=== PATIENT | female | born 1955 | race Caucasian/White ===

== ENCOUNTER 2020-01-04 19:08 | Emergency (ER) | payer OTHER, SELFPAY ==
[2020-01-04] VITALS (24 sets, daily range): BP systolic 113–143; BP diastolic 44–85; PULSE 97–120; RESP 18; TEMP 36.6; O2SAT 87–99
--- NOTE | 2020-01-04 19:14 | ED.GENADUL_ITS ---
Discharge Plan Disposition Patient Disposition: [facility] Condition: Serious Discharge Details Chief Complaint: RashLesion Clinical Impression: DKA (diabetic ketoacidoses), Cellulitis, Necrotizing fasciitis, Acute vulvovaginitis Primary Care Provider: Clemente Pike ED Provider: Analia iSlva Home Meds and New Rx's Prescriptions: No Action No Known Home Meds RF: 0 Medical Decision Making Patient is a pleasant, ill appearing, 89 year old female. She is presenting today with c/c of buttock pain. States that pain started approximately 2 days ago but she had not really noticed it. She states that her saw the area of swelling and advised evaluation. She also has noted wounds ot the right lower extremity, unclear when these began. She states that she has not seen a phsycian in several years. Believes that she was once diagnosed with prediabetes but not other diagnoses and is on no medications. She states that she has been fairly sedentary recently. She denies fevers/chills. No cough, SOB, CP, abdominal pain. States normal BM today without difficulty or pain. Denies any dysuria, hematuria. No vaginal discharge. Spoke with the patients , Choco. He advised that he has been trying ot get the patient to come to the hospital x 3 weeks. He states that this started off with swelling in her vagina. He states that they have not been able to have intercourse because it was swollen shut. He states that later the patient pulled off a toenail and had infection but she refused to come in. He noticed the abscess on her buttock x 4-5 days. States that now she is unable to control her bodily functions. He states taht he has found stool on the floor, on herself as well as incontinent of urine. He states patient has been at her baseline mentation. states that she has not been washing herself but states that it is becuase of the sore on her bottom and lack of ambition. On exam, patient does appear ill. She is tachycardic with a heart rate of 120. She appears dehydrated. Normal HEENT exam. Lungs are clear. Normal cardiac exam. Abdomen is soft and nontender, normal bowel sounds. Patient has swelling, erythema of the external genitals consistent with candidal infection. This is nontender to palpation. Patient also has a very large abscess to the right buttock. There was a small piece of tissue overriding opening. Once this was clear, approximately 100 cc of thick, purulent, foul-smelling brown discharge. There is no crepitus. The surrounding tissue edges are indurated. She since had minimal pain with palpation over this area. She also has open wounds to the right lower extremity. These do appear chronic with surrounding cellulitis. She also has an open wound under the right great toe. She has notable swelling to the right foot. Negative Homans sign, no pain in the posterior calf. She does have 2+ distal pulses and good capillary refill. He reports that the abscess in the buttock is been growing over the past week. States that today, when he noticed her being incontinent of stool and urine, is when he was able to bring her in for evaluation. Patient is very poorly kempt, very dirty, feces on her feet, abdomen and buttock. Imaging of the patient's buttock to evaluate for size of the abscess. Do not see any evidence at this point to suggest necrotizing fasciitis. Sounds are quite slow-growing wound patient and 's history. Patient does appear septic. We will begin aggressive hydration, antibiotics. Will give Zosyn and Flagyl. Labs reviewed. No contacted by the lab, concerning for lactate is 7.7. Patient's white count is 19. Platelet count of 800. ANC 16. Sodium 132. Potassium 3.5. Anion gap of 16.7. Creatinine 1.58 with a GFR of 33. We do not have comparison baseline values for maintenance labs. Glucose is 44. A1c 13%. Mag 1.6, will begin replenishment here. Patient's alk phos is elevated at 154. Troponin is less than 0.05. Urine concerning for 15 mg/dL ketones and 500 glucose. Many yeast were also seen which is consistent with exam. Carbone has been placed. Patient given 10 units subcu regular insulin. We will also give 20 of potassium IV, 1 g of magnesium. She is on her second liter of fluids we will continue to hydrate her. FINDINGS: Tubes, catheters and devices: A balloon bladder catheter is present. Stomach and bowel: Visualized small bowel and colon are unremarkable. Appendix: No evidence of appendicitis. Intraperitoneal space: Unremarkable. No free air. No significant fluid collection. Vasculature: The vasculature demonstrates diffuse mild atherosclerotic calcification. Lymph nodes: Unremarkable. No enlarged lymph nodes. Bladder: There is a small amount of intraluminal bladder gas consistent with instrumentation. Reproductive: Normal as visualized. Bones/joints: No acute abnormality or aggressive osseous lesion. Soft tissues: There is a 5.3 cm by 6.1 cm gas containing collection in the right gluteal cleft. There are several foci of soft tissue emphysema also appreciated in the right gluteal cleft as well. There is significant soft tissue fat stranding in the right gluteal cleft. IMPRESSION: Findings favor a 6.1 cm right gluteal cleft abscess with high concern for underlying necrotizing soft tissue bacterial infection. Differential would include recent debridement. This could be secondary to the large amount of fluid already removed, there is no crepitus to suggest necrotizing fasciitis. She is not hypotensive and this has been developing over the past week. Will discuss with radiologist regarding potential for necrotizing fasciitis. Spoke with the radiologist, he is unclear about the air. Not close to muscle fascia, feels that it would be into the cutaneous area of the gluteal cleft. He does advised that this exam is consistent with necrotizing fasciitis. Consulted with Dr. Fitzgerald with [facility] general surgery who accepts patient in transfer. He is requesting vancomycin clindamycin and Zosyn. Advise ER to ER transfer. Discussed this plan with the patient. Patient's been very hesitant to receive any care. She seems like she is in denial regarding her multitude of concerns today. However the help of her Choco is very good at getting her to agree in transfer. can be reached at [phone]. HPI General Mode of arrival: ambulatory . Date/Time Provider Initiated Documentation: 01/04/20 19:10 . Limitations to Documentation: no limitations . Information obtained by: patient, family (Spoke with multiple times over the phone [phone]) and RN notes reviewed . History of Present Illness 64 year old F presents to the emergency department with the chief complaint of Buttock pain and swelling, described as mild, with intensity rated at 3. Quality is described as aching, and is localized to the buttocks and right. Patient reports no radiation. Patient started experiencing this day(s) and it has been constant. No relieving factors improve symptom(s), No exacerbating factors reported . Patient notes denies chest pain, cough, diaphoresis, fever/chills, loss of appetite, nausea/vomiting, shortness of breath and weakness. Patient did receive the following treatments prior to a rrival, none Related Data Home Medications Medication Instructions Recorded Confirmed Unknown [No Known Home Meds] 01/04/20 01/04/20 Allergies Allergy/AdvReac Type Severity Reaction Status Date / Time No Known Allergies Allergy Unverified 01/04/20 19:33 Review of Systems Constitutional Constitutional: Reports as per HPI, Denies chills, Reports fatigue, Denies fever(s), Denies headache(s) and Denies poor appetite Eyes Eyes: Denies change in vision ENT Ears, Nose, Mouth, and Throat: Denies dizziness and Denies headache(s) Cardiovascular Cardiovascular: Reports as per HPI, Denies chest pain, Denies chest pain at rest, Denies chest pain with activity, Denies dyspnea and Denies dyspnea on exertion Respiratory Respiratory: Reports as per HPI, Denies chest congestion, Denies cough, Denies pain on inspiration, Denies pain with cough, Denies dyspnea, Denies dyspnea on exertion and Denies wheezing Gastrointestinal Gastrointestinal: Reports as per HPI, Denies abdominal pain, Denies melena, Denies hematochezia, Denies diarrhea, Denies loose stools, Denies nausea and Denies vomiting Genitourinary Genitourinary: Denies hematuria, Denies genital lesions, Reports dyspareunia, Reports sexual dysfunction ( reports swelling leading to sexual dysfunction, patient denies), Denies flank pain, Reports urinary incontinence, Reports urinary urgency, Denies vaginal discharge, Denies vaginal odor and Denies vaginal pruritus Musculoskeletal Musculoskeletal: Reports as per HPI and Reports back pain (buttock pain) Integumentary/Breasts Skin/Breast: Reports as per HPI, Reports skin pain, Reports skin swelling, Reports sores (RLE ) and Denies unusual bruising Neurologic Neurologic: Reports as per HPI, Denies dizziness and Denies headache(s) Endocrine Endocrine: Reports fatigue Allergic/Immunologic Allergic/Immunologic: Denies wheezing [facility] Social History Smoking/Tobacco Use Status: Never Alcohol Intake: never Drug use: Never Substance use type: does not use Do you feel safe at home: Yes Do you feel safe in your relationship?: Yes Additional Social history: Lives with Choco on spring Exam Const General: cooperative, uncomfortable (bending forward frequently, reports it relieves pain), no acute distress, well developed, No well groomed, anxious and ill appearing acutely Nutritional Appearance: well nourished and overweight Orientation: alert, awake and oriented x3 [facility] Head: normal to inspection Ears: hearing grossly normal bilaterally Mouth: mucous membranes dry Chest Chest: normal inspection of the chest, normal palpation of entire chest wall and no crepitus Resp Effort & Inspection: normal respiratory effort, able to speak in complete sentences and no respiratory distress Auscultation: clear to auscultation bilaterally, no rales, no rhonchi and no wheezes Cardio Rate: regular rate Rhythm: regular rhythm Heart Sounds: S1 normal and S2 normal GI Inspection: normal to inspection, no edema and non-distended Palpation: soft, no hepatosplenomegaly, not firm, no guarding, not rigid and nontender Auscultation: normal bowel sounds Back/Spine/Pelvis Back: no CVA tenderness Thoracic/Lumbar Spine: thoracic and lumbar spine normal to inspection Back/spine/pelvis image: 1. Patient is a large firm, erythematous area. Centrally, this is fluctuant. From the superior medial aspect there was a 4 cm piece of moist tissue hanging f rom the wound. This was pulled and at that time, a large amount of foul- smelling discharge was expressed from the wound. Approximately 100 cc came out. This was sent for culture. Surrounding tissue is indurated. Patient is fairly nontender. No crepitus. Skin General skin exam: erythema (Vulvovaginitis), excoriation (Under bilateral breasts), fluctuance and induration (Around abscess) Wounds: wounds noted (Multiple chronic appearing wounds with surrounding erythema, no fluctuance ) Neuro General: patient alert, patient awake and patient oriented x3 Cognition: normal cognition Speech: speech normal Gait: antalgic Extrem General: normal to inspection, capillary refill normal, no calf tenderness and abnormal gait (Antalgic) Right lower extremity: abnormal to inspection (Swelling to the right foot, wound under the right great toe) Psych Appearance: grossly normal and well kempt Mental Status: mental status grossly normal Speech and Movement: speech and movement normal
--- NOTE | 2020-01-04 19:42 | NUR.NOTE ---
Nursing Note: Patient reports that she has not showered for approximately 3 days now I was being lazy. Reports spouse helped her wash today and noticed wounds on leg and buttocks and hence brought patient to ER. Patient reports sensation to right buttock, but minimal response for pain from patient with palpation to sore.
[2020-01-04 19:46] LABS: Lactate 7.7 mmol/L (0.6-1.4)
[2020-01-04 19:49] LABS: Abs Immature Grans 0.06 k/cumm (0.0-0.09); Absolute Lymphocyte Count 1.99 k/cumm (1.2-3.4); Absolute Monocyte Count 0.84 k/cumm (0.11-0.7); Absolute Neutrophil Count 16.09 k/cumm (1.2-6.7); Basophils % 0.2; Eosinophils % 0.5; HCT 36.5 % (36.0-46.0); HGB 11.8 g/dL (12.0-15.5); Immature Grans % 0.3 %; Lymphocytes % 10.4; Mean Corp. HGB Concentration 32.3 g/dL (32.0-36.0); Mean Corpuscular Hemoglobin 26.1 pg (27.0-33.0); Mean Corpuscular Volume 80.8 fL (80-95); Mean Platelet Volume 10.5 fL (8.0-11.0); Monocytes % 4.4; Neutrophils % 84.2; RBC 4.52 m/cumm (4.00-5.20); RBC Distribution Width 12.8 % (11.7-14.6); White Blood Cell Count 19.11 k/cumm (4.4-10.8)
--- NOTE | 2020-01-04 19:49 | NUR.NOTE ---
Nursing Note: Possible skin tag removed from right buttock which then allowed purulent, blood, pus looking fluid to flow out from hole in buttock. Very odiferous. Wound culture obtained. Hyun POMPA notified.
[2020-01-04 19:58] LABS: ALT 13 U/L (14-59); AST 16 U/L (15-37); Albumin 2.5 g/dL (3.4-5.0); Alkaline Phosphatase 154 U/L (46-116); Anion Gap 16.7 mmol/L (3-11); BUN 11 mg/dL (7-18); Bilirubin, Total 0.4 mg/dL (0.2-1.0); CO2 23.3 mmol/L (21.0-32.0); CREATININE 1.58 mg/dL (0.55-1.02); Calcium 9.3 mg/dL (8.5-10.1); Chloride 92 mmol/L (98-107); Estimated GFR 33.14 (mL/min/1.73m2); Glucose 484 mg/dL (74-106); Magnesium 1.6 mg/dL (1.8-2.4); Potassium 3.5 mmol/L (3.5-5.1); Sodium 132 mmol/L (136-145); Total Protein 8.7 g/dL (6.4-8.2)
[2020-01-04] MEDS: Normal Saline 1,000 ML 1000 ML IV ×2 (19:58→21:41)
[2020-01-04 20:00] LABS: Absolute Basophil Count 0.04 k/cumm (0.0-0.2)
[2020-01-04 20:07] LABS: Platelet Count 800 x1000/uL (130-400); Troponin I < 0.05 ng/mL (<0.06)
[2020-01-04 20:08] LABS: Diff Comment PLT Morph Reviewed; RBC Morphology Normal
[2020-01-04] MEDS: PIPERACILLIN/TAZO 3.375 GM in Normal Saline 50 ML IVPB (20:24)
[2020-01-04 20:42] LABS: Hemoglobin A1C 13.3 % (3.8-5.6)
--- NOTE | 2020-01-04 20:55 | NUR.NOTE ---
Nursing Note: Patient's aurora area cleansed with barrier wipes with assistance from Augusta SUAZO prior to inserting sanchez catheter. Swollen, red, excoriated labia and surrounding skin noted. Also excoriated skin under both breasts which were cleansed with the barrier wipes.
[2020-01-04 21:02] LABS: Bilirubin Negative (Negative); Blood Trace-intact (Negative); Clarity Cloudy (Clear); Glucose 500 mg/dL (Negative); Ketones 15 mg/dL (Negative); Leukocyte Esterase Negative (Negative); Nitrite Negative (Negative); Urobilinogen 0.2 EU/dL (Up TO 0.2); pH 5.5 (5-8)
[2020-01-04 21:15] LABS: Epithelial Cells Rare HPF (Negative)
[2020-01-04 21:16] LABS: Bacteria Many HPF (Negative); C & S Indicated? Yes; Casts Negative LPF (Negative); Crystals Negative HPF (Negative); Mucus Negative (Negative)
[2020-01-04] MEDS: Insulin REGULAR-Human 100 UNITS/ML UNIT 10 UNITS SC (21:23)
--- NOTE | 2020-01-04 21:35 | DI.CT_ITS ---
EXAM: CT PELVIC WO CLINICAL HISTORY: large abscess right buttock. TECHNIQUE: Imaging Protocol: Axial computed tomography images with coronal and sagittal reformatted images were created and reviewed. CONTRAST MATERIAL: Oral: yes / no COMPARISON: No exams were available for comparison FINDINGS: There is soft tissue swelling and air with in the fat of the inferomedial right gluteal cleft. It me asures approximately 5 x 6 cm. There is no apparent extension to involve musculature. No intra-abdo ryan abscesses are seen. The appendix appears normal. There is no bowel dilatation. A catheter is noted within the bladder. The uterus appears enlarged and shows fibroids. IMPRESSION: Right gluteal cleft abscess. RADIATION DOSE DELIVERED: Total DLP DATA REPOSITORY: All CT scans at this facility are submitted to the National Radiology Data Registry (NRDR) Dose Index Registry (DIR) with the [employer] ([employer]). RADIATION OPTIMIZATION: All CT scans at this facility use at least one of these dose optimization te chniques: automated exposure control; mA and/or kV adjustment per patient size (includes targeted exa ms where dose is matched to clinical indication); or iterative reconstruction.
[2020-01-04] MEDS: metroNIDAZOLE 500 MG/100 ML BAG 100 MG IVPB (21:42)
[2020-01-04] MEDS: MAGNESIUM SULFATE 1 GM/100 ML BAG IVPB (21:44)
--- NOTE | 2020-01-04 21:55 | DI.VRAD_ITS ---
Addendum created by Jones Hernandez MD on 01/04/2020 10:05:05 PM EDT Findings were discussed with BHUPENDRA OLMSTEAD at 01/04/2020 10:05 PM EDT. Initial report created on 01/04/2020 9:55:08 PM EDT PROCEDURE INFORMATION: Exam: CT Pelvis Without Contrast Exam date and time: 01/04/2020 9:29 PM Age: 64 years old Clinical indication: Perianal pain; Patient HX: Large abscess RT buttock - one week TECHNIQUE: Imaging protocol: Computed tomography images of the pelvis without contrast. Radiation optimization: All CT scans at this facility use at least one of these dose optimization techniques: automated exposure control; mA and/or kV adjustment per patient size (includes targeted exams where dose is matched to clinical indication); or iterative reconstruction. COMPARISON: No relevant prior studies available. FINDINGS: Tubes, catheters and devices: A balloon bladder catheter is present. Stomach and bowel: Visualized small bowel and colon are unremarkable. Appendix: No evidence of appendicitis. Intraperitoneal space: Unremarkable. No free air. No significant fluid collection. Vasculature: The vasculature demonstrates diffuse mild atherosclerotic calcification. Lymph nodes: Unremarkable. No enlarged lymph nodes. Bladder: There is a small amount of intraluminal bladder gas consistent with instrumentation. Reproductive: Normal as visualized. Bones/joints: No acute abnormality or aggressive osseous lesion. Soft tissues: There is a 5.3 cm by 6.1 cm gas containing collection in the right gluteal cleft. There are several foci of soft tissue emphysema also appreciated in the right gluteal cleft as well. There is significant soft tissue fat stranding in the right gluteal cleft. IMPRESSION: Findings favor a 6.1 cm right gluteal cleft abscess with high concern for underlying necrotizing soft tissue bacterial infection. Differential would include recent debridement. Dictated and Authenticated by: Jones Hernandez MD. Ordering:PAUL Helms MD
[2020-01-04] MEDS: Lactated Ringers 1,000 ML 250 ML IV (22:46)
[2020-01-04] MEDS: POTASSIUM CHLORIDE 20 MEQ/100 ML BAG 50 MEQ IVPB (22:48)
[2020-01-04] MEDS: CLINDAMYCIN 900 MG/50 ML BAG 50 MG IVPB (22:48)
[2020-01-04] MEDS: VANCOMYCIN 1,000 MG in Normal Saline 250 ML 166.6666 MG IVPB (22:48)
[2020-01-05 01:21] LABS: TSH (W/Ref FT4) 2.36 uIU/mL (0.36-3.74)
--- NOTE | 2020-01-07 08:15 | NUR.NOTE ---
Pt TX'd to [facility] urine culture report faxed to [facility] [phone] Note:
--- NOTE | 2020-01-09 08:21 | NUR.NOTE ---
Nursing Note: Faxed to [facility] the wound culture result. Juana Middleton
== END 2020-01-04 23:30 | disposition short-term general hospital (02) ==
PROVIDERS: Emergency Provider Physician Assistant; PCP Internal Medicine
DX: M72.6 Necrotizing fasciitis (principal); E11.10 Type 2 diabetes mellitus with ketoacidosis without coma; A41.9 Sepsis, unspecified organism; B37.3 Candidiasis of vulva and vagina; L02.31 Cutaneous abscess of buttock; L03.115 Cellulitis of right lower limb; E86.0 Dehydration; E83.42 Hypomagnesemia; E11.65 Type 2 diabetes mellitus with hyperglycemia; R32 Unspecified urinary incontinence; R15.9 Full incontinence of feces; S81.801A Unspecified open wound, right lower leg, initial encounter; S91.301A Unspecified open wound, right foot, initial encounter; X58.XXXA Exposure to other specified factors, initial encounter
CPT/HCPCS: 36415; 36416; 51702; 80053; 82962; 87040; 87077; 96361; 96365; 96367; 96368; 96372; 96375; 99285; 72192; 81003; 81015; 83036; 83605; 83735; 84443; 84484; 85025; 87070; 87086; 87186; 87205; J2543; J3475; J3480

== ENCOUNTER 2020-01-30 02:55 | Outpatient (CLI) | payer OTHER, SELFPAY ==
[2020-01-30 08:09] LABS: Abs Immature Grans 0.02 10^3/uL (0.0-0.06); Absolute Basophil Count 0.07 10^3/uL (0.0-0.2); Absolute Eosinophil Count 0.37 10^3/uL (0.0-0.7); Absolute Lymphocyte Count 2.25 10^3/uL (1.2-3.4); Absolute Monocyte Count 0.33 10^3/uL (0.1-0.8); Absolute Neutrophil Count 4.29 10^3/uL (1.2-6.7); HCT 31.4 % (36.0-46.0); HGB 9.8 g/dL (11.2-15.7); Immature Grans % 0.3; Lymphocytes % 30.7; MCH 26.1 pg (27.0-33.0); MCHC 31.2 % (32.0-36.0); MCV 83.7 fL (80-95); MPV 10.5 fL (8.0-11.0); Monocytes % 4.5; Neutrophils % 58.5; Nucleated RBC 0 %; Platelet Count 358 10^3/uL (130-400); RBC 3.75 10^6/uL (3.93-5.22); RDW-SD 48.2 fL; WBC 7.33 10^3/uL (4.4-10.8)
[2020-01-30 09:08] LABS: ALT 21 U/L (14-59); AST 13 U/L (15-37); Alkaline Phosphatase 142 U/L (46-116); Anion Gap 12.8 mmol/L (3-11); BUN 26 mg/dL (7-18); Bilirubin, Total 0.3 mg/dL (0.2-1.0); CO2 26.2 mmol/L (21.0-32.0); CREATININE 3.29 mg/dL (0.55-1.02); Calcium 9.5 mg/dL (8.5-10.1); Calculated LDL 76 mg/dL (<100); Chloride 104 mmol/L (98-107); Cholesterol 166 mg/dL (<200); Estimated GFR 14.21 (mL/min/1.73m2); Glucose 145 mg/dL (74-106); HDL Cholesterol 33 mg/dL (40-60); Potassium 4.4 mmol/L (3.5-5.1); Sodium 143 mmol/L (136-145); Total Protein 7.5 g/dL (6.4-8.2); Triglyceride 287 mg/dL (<150)
== END 2020-01-30 03:15 ==
PROVIDERS: PCP Student in an Organized Health Care Education/Training Program; Visit Provider Student in an Organized Health Care Education/Training Program
DX: Z13.220 Encounter for screening for lipoid disorders (principal); I10 Essential (primary) hypertension; N17.9 Acute kidney failure, unspecified
CPT/HCPCS: 36415; 80053; 80061; 85025

== ENCOUNTER 2020-02-01 21:17 | Outpatient (REF) | payer OTHER, SELFPAY ==
[2020-02-01 23:54] LABS: COMMENT (LAB VIEW ONLY) 60.44 mg/dL
[2020-02-02 00:06] LABS: Microalb ug/mg Crea 133.7 ug/mg Cr
== END 2020-02-01 21:37 ==
LOC: NCHCN 21:17
PROVIDERS: PCP Student in an Organized Health Care Education/Training Program; Visit Provider Student in an Organized Health Care Education/Training Program
DX: E11.9 Type 2 diabetes mellitus without complications (principal)
CPT/HCPCS: 82043; 82570

== ENCOUNTER 2020-04-18 02:49 | Outpatient (CLI) | payer OTHER, SELFPAY ==
[2020-04-18 14:35] LABS: Anion Gap 10.6 mmol/L (3-11); BUN 43 mg/dL (7-18); CO2 23.4 mmol/L (21.0-32.0); CREATININE 1.79 mg/dL (0.55-1.02); Calcium 9.3 mg/dL (8.5-10.1); Chloride 109 mmol/L (98-107); Estimated GFR 28.69 (mL/min/1.73m2); Glucose 140 mg/dL (74-106); Magnesium 1.9 mg/dL (1.8-2.4); Potassium 5.4 mmol/L (3.5-5.1); Sodium 143 mmol/L (136-145)
== END 2020-04-18 03:09 ==
PROVIDERS: PCP Student in an Organized Health Care Education/Training Program; Visit Provider Student in an Organized Health Care Education/Training Program
DX: I10 Essential (primary) hypertension (principal); E87.5 Hyperkalemia; N18.9 Chronic kidney disease, unspecified
CPT/HCPCS: 36415; 80048; 83735

== ENCOUNTER 2020-04-29 09:04 | Inpatient (IN) | payer OTHER, SELFPAY ==
[2020-04-29] VITALS (8 sets, daily range): BP systolic 112–154; BP diastolic 54–73; PULSE 83–93; RESP 16–18; TEMP 36.5–37.2; O2SAT 95–98
--- NOTE | 2020-04-29 09:30 | DI.RAD_ITS ---
EXAM: XR HIP LT COMPLETE AP PELVIS CLINICAL HISTORY: fall/pain. TECHNIQUE: 2D digital imaging was performed. COMPARISON: No exams were available for comparison FINDINGS: BONES: There is a subcapital fracture of the left femur. There is impaction and proximal migration o f the distal fracture. No bony destructive lesion is seen. JOINTS: No dislocation present. Degenerative changes are seen in the hips, lower lumbar spine and sac roiliac joints. SOFT TISSUE: Atherosclerosis. IMPRESSION: Impacted subcapital fracture of the left femoral neck. DATA REPOSITORY: RADIATION DOSE DELIVERED:
--- NOTE | 2020-04-29 09:54 | W.ED.GENAD ---
Discharge Plan Disposition Patient Disposition: [facility] INPATIENT Condition: Stable Discharge Details Clinical Impression: Fracture of hip, left, closed Primary Care Provider: Korina Ibanez ED Provider: Calixto Roy Home Meds and New Rx's Prescriptions: No Action (DME) pen needle, diabetic [BD Ultra-Fine Mini Pen Needle] 31 gauge x 3/16 needle See Rx Instructions .ROUTE .MEDSUPPLY Qty: 30 RF: 0 B complex-vitamin C-folic acid 1 mg tablet 1 tab PO DAILY RF: 0 (DME) Mepilex Border 4 X 4 bandage See Rx Instructions .ROUTE .MEDSUPPLY Qty: 1 RF: 0 (DME) blood sugar diagnostic Strip See Rx Instructions .ROUTE .MEDSUPPLY Qty: 100 RF: 3 Lantus Solostar U-100 Insulin 100 unit/mL (3 mL) insulin pen 20 unit SC DAILY RF: 0 Medical Decision Making 64-year-old female with history of CKD, diabetes, hypertension, presents complaining of left hip pain status post fall earlier this morning between 1 and 2 AM. She reports that she got up out of bed to use the restroom and her left leg gave out on her. She was helped up by her and denies any other injury or pain except for the left hip. She appears to be in mild distress, leg is slightly shortened and rotated. Will obtain IV access, give 4 mg IV morphine, obtain routine laboratory values obtain x-ray of left hip and pelvis. Laboratory values reveal a white blood count of 15.34. This could be stress related. She denies any fever, cough, dysuria. No obvious signs of infection. Hemoglobin 12.2 hematocrit 36.8 platelet count 412. Potassium 5.1, creatinine 1.92 with a GFR of 26.46. This appears to be slightly worse than her baseline, she is receiving 1 L IV fluid. Glucose 174. Urinalysis pending. Patient did report moderate pain relief with 4 mg IV morphine. X-ray of the left hip and pelvis reveals an impacted subcapital fracture of the left femoral neck. I received a call from radiology requesting that we add on a left femur x-ray as well because the orthopedic surgeon on-call prefers this view. X-ray of the left femur is unremarkable per radiology. I did speak with the patient and her regarding findings. I placed a call to orthopedic surgery on-call for consultation and admission. Patient last ate yesterday, she did not have breakfast. Dr. Neff down to the ER to evaluate the patient himself. He agrees that the patient needs to be admitted and will require surgery. He is unsure whether he will get the surgery today or tomorrow. For the meantime he asked the patient remain n.p.o., we add on an A1c, and discuss admission with our hospitalist team. I then discussed the case with Dr. Muñoz, she is happy to admit the patient and will write holding orders. She does request that we order a chest x-ray and EKG for preoperative screening. I also added on a Covid swab as the patient is being admitted. Medical Records Medical records reviewed: Yes I reviewed the patient's medical records. Lab Data Lab results reviewed: Yes I reviewed the patient's lab results. Lab results narrative: Laboratory Tests Range/Units 04/29/20 04/29/20 09:45 09:45 WBC (4.4-10.8) 10^3/uL 15.34 H RBC (3.93-5.22) 10^6/uL 4.32 Hgb (11.2-15.7) g/dL 12.2 Hct (36.0-46.0) % 36.8 MCV (80-95) fL 85.2 MCH (27.0-33.0) pg 28.2 MCHC (32.0-36.0) % 33.2 RDW (11.7-14.6) % 12.7 Plt Count (130-400) 10^3/uL 412 H MPV (8.0-11.0) fL 10.7 Immature Gran % 0.7 Neutrophils % 92.2 Lymphocytes % 4.2 Monocytes % 2.5 Eosinophils % 0.1 Basophils % 0.3 Nucleated RBC % % 0 Absolute Neutrophils (1.2-6.7) 10^3/uL 14.14 H Absolute Lymphocytes (1.2-3.4) 10^3/uL 0.64 L Absolute Monocytes (0.1-0.8) 10^3/uL 0.38 Absolute Eosinophils (0.0-0.7) 10^3/uL 0.02 Absolute Basophils (0.0-0.2) 10^3/uL 0.05 Sodium (136-145) mmol/L 137 Potassium (3.5-5.1) mmol/L 5.1 Chloride (98-107) mmol/L 106 Carbon Dioxide (21.0-32.0) mmol/L 16.9 L Anion Gap (3-11) mmol/L 14.1 H BUN (7-18) mg/dL 44 H Creatinine (0.55-1.02) mg/dL 1.92 H Estimated GFR/1.73 m2 (mL/min/1.73m2) 26.46 Glucose (74-106) mg/dL 174 H Calcium (8.5-10.1) mg/dL 9.4 Total Bilirubin (0.2-1.0) mg/dL 0.3 AST (15-37) U/L 33 ALT (14-59) U/L 55 Alkaline Phosphatase (46-116) U/L 161 H Total Protein (6.4-8.2) g/dL 8.6 H Albumin (3.4-5.0) g/dL 3.4 HPI General Mode of arrival: wheelchair. Date/Time Provider Initiated Documentation: 04/29/20 09:06. Limitations to Documentation: no limitations. Information obtained by: patient. HPI Narrative: This is a 64-year-old female with history of chronic kidney disease, diabetes, hypertension. She presents to the ER via private vehicle for evaluation of left hip discomfort. She states that she went to bed last night at normal time, feeling asymptomatic. She woke up early in the morning between 1 and 2 AM, while walking to the restroom had her left leg give out on her causing her to fall. She states that her had to help her get back up to bed however since that time she has been unable to bear weight on that left leg. She was asymptomatic prior to the fall. She denies any other injuries secondary to the fall. Denies striking her head, headache, visual changes, neck pain, chest pain, shortness of breath, abdominal pain, nausea, vomiting, numbness, tingling, weakness. She lives at home with her and typically ambulates without assistance. Related Data Home Medications Medication Instructions Recorded Confirmed vitamin B complex-vitamin C-folic 1 tab PO DAILY 01/22/20 04/29/20 acid 1 mg tablet pen needle, diabetic 31 gauge x #30 each 01/25/20 03/27/2008/26 foam bandage 4 X 4 #1 ea 03/31/20 blood sugar diagnostic #100 ea 04/05/20 insulin glargine [Lantus Solostar 20 unit SC DAILY 04/29/20 U-100 Insulin] Previous Rx's Medication Instructions Recorded pen needle, diabetic 31 gauge x #30 each 01/25/20/ blood sugar diagnostic #100 ea 04/05/20 Allergies Allergy/AdvReac Type Severity Reaction Status Date / Time amlodipine AdvReac Unknown dizzyness Verified 04/29/20 09:22 General Stated Complaint: Trauma ADEN: 3 Review of Systems Constitutional Constitutional: Denies fever(s) and Denies headache(s) Eyes Eyes: Denies change in vision ENT Ears, Nose, Mouth, and Throat: Denies headache(s) and Denies neck pain Cardiovascular Cardiovascular: Denies chest pain and Denies dyspnea Respiratory Respiratory: Denies cough and Denies dyspnea Gastrointestinal Gastrointestinal: Denies abdominal pain, Denies nausea and Denies vomiting Genitourinary Genitourinary: Denies dysuria Musculoskeletal Musculoskeletal: Denies back pain, Denies neck pain, Denies numbness and Denies tingling Integumentary/Breasts Skin/Breast: Denies rash Neurologic Neurologic: Denies headache(s), Denies numbness and Denies tingling [facility] Medical History (Updated 04/29/20 @ 12:42 by PEÑA Rivera) Bacteremia due to other bacteria DKA (diabetic ketoacidoses) Family History Father Diabetes Brother Diabetes Social History Smoking/Tobacco Use Status: Never Smoking risk assessment performed?: Yes Alcohol Intake: never Drug use: Never Substance use type: does not use Adopted: No Caregiver/Support person: No Foster care: No Household members: spouse Housing: apartment Do you need help understanding health information?: Rarely current occupation: Unemployed Do you think of yourself as: straight/heterosexual Current gender identity: female Do you feel safe at home: Yes Do you feel safe in your relationship?: Yes Additional Social history: Lives with [place] [address]. threatening litigation about no entry to ED with (visitor policy) 04/29/20 Exam Const General: cooperative, healthy appearing and in distress Orientation: alert, awake and oriented x3 HENMT Head: normal to inspection, normocephalic and atraumatic Face and sinus: normal facial exam Mouth: moist mucous membranes Eyes General: appearance normal, both eyes and all related structures Conjunctivae: conjunctivae normal Sclera: sclerae normal Neck Neck: normal visual inspection, full ROM, trachea midline, supple and nontender Resp Effort & Inspection: normal respiratory effort and able to speak in complete sentences Auscultation: clear to auscultation bilaterally Cardio Rate: regular rate Rhythm: regular rhythm GI Palpation: soft and nontender Back/Spine/Pelvis Back: No back tenderness Skin General skin exam: no rashes or lesions noted Neuro General: patient alert, patient awake, patient oriented x3, moves all extremities and no focal motor deficits Cognition: normal cognition Speech: speech normal Motor: muscle tone normal throughout and strength 5/5 throughout Sensory Exam: no sensory deficits noted Extrem General: capillary refill normal Right upper extremity: normal to inspection, full ROM and normal capillary refill Left upper extremity: normal to inspection, full ROM and normal capillary refill Right lower extremity: normal to inspection, full ROM and normal capillary refill Left lower extremity: normal capillary refill and hip/thigh Details: tenderness Location: of the hip (Diffuse, worse laterally) and abnormal ROM (Slightly shortened and minimally rotated) Details: pain with active ROM and pain with passive ROM Psych Appearance: grossly normal Mental Status: mental status grossly normal Course Vital Signs Vital signs: Vital Signs Temperature 36.5 C 04/29/20 09:15 Pulse 93 H 04/29/20 09:15 Respiratory Rate 18 04/29/20 09:15 Blood Pressure 154/59 H 04/29/20 09:15 Pulse Oximetry 95 04/29/20 09:15 Temperature 36.5 C 04/29/20 09:15 Temperature Source Skin 04/29/20 09:15 Pulse 93 H 04/29/20 09:15 Respiratory Rate 18 04/29/20 09:15 Respiratory Effort 04/29/20 09:21 Blood Pressure 154/59 H 04/29/20 09:15 Blood Pressure Position Supine 04/29/20 09:15 Pulse Oximetry 95 04/29/20 09:15 Oxygen Delivery Method Room Air 04/29/20 09:15 Oxygen Flow Rate 0 04/29/20 09:15 Pain Level 10 04/29/20 09:15
[2020-04-29 09:56] LABS: Absolute Monocyte Count 0.38 10^3/uL (0.1-0.8); Basophils % 0.3; Eosinophils % 0.1; HCT 36.8 % (36.0-46.0); HGB 12.2 g/dL (11.2-15.7); Immature Grans % 0.7; Lymphocytes % 4.2; MCH 28.2 pg (27.0-33.0); MCHC 33.2 % (32.0-36.0); MCV 85.2 fL (80-95); MPV 10.7 fL (8.0-11.0); Monocytes % 2.5; Neutrophils % 92.2; Nucleated RBC 0 %; Platelet Count 412 10^3/uL (130-400); RBC 4.32 10^6/uL (3.93-5.22); RDW 12.7 % (11.7-14.6); WBC 15.34 10^3/uL (4.4-10.8)
[2020-04-29] MEDS: Normal Saline 1,000 ML 1000 ML IV (09:56)
[2020-04-29 09:58] LABS: Absolute Basophil Count 0.05 10^3/uL (0.0-0.2); Absolute Eosinophil Count 0.02 10^3/uL (0.0-0.7); Absolute Lymphocyte Count 0.64 10^3/uL (1.2-3.4); Absolute Neutrophil Count 14.14 10^3/uL (1.2-6.7)
[2020-04-29 10:09] LABS: ALT 55 U/L (14-59); AST 33 U/L (15-37); Albumin 3.4 g/dL (3.4-5.0); Alkaline Phosphatase 161 U/L (46-116); Anion Gap 14.1 mmol/L (3-11); BUN 44 mg/dL (7-18); Bilirubin, Total 0.3 mg/dL (0.2-1.0); CO2 16.9 mmol/L (21.0-32.0); CREATININE 1.92 mg/dL (0.55-1.02); Calcium 9.4 mg/dL (8.5-10.1); Chloride 106 mmol/L (98-107); Estimated GFR 26.46 (mL/min/1.73m2); Glucose 174 mg/dL (74-106); Potassium 5.1 mmol/L (3.5-5.1); Sodium 137 mmol/L (136-145); Total Protein 8.6 g/dL (6.4-8.2)
--- NOTE | 2020-04-29 10:15 | DI.RAD_ITS ---
EXAM: XR FEMUR LT CLINICAL HISTORY: fx on hip/pel view. TECHNIQUE: 2D digital imaging was performed. COMPARISON: No exams were available for comparison FINDINGS: BONES: No acute fracture is present. The proximal femur is not included on this examination but is i ncluded on the examination of the pelvis and left hip. No bony destructive lesion is seen. Visualize d portion of knee is unremarkable. SOFT TISSUE: Atherosclerosis. IMPRESSION: Unremarkable radiographs of the distal left femur. Please see the dictation for the x-ray of the pelv is and left hip. DATA REPOSITORY: RADIATION DOSE DELIVERED:
--- NOTE | 2020-04-29 12:00 | DI.RAD_ITS ---
EXAM: XR PORTABLE CHEST AP CLINICAL HISTORY: pre op TECHNIQUE: 2D digital imaging was performed. COMPARISON: No exams were available for comparison FINDINGS: MEDIASTINUM: Normal. HEART: Normal. PULMONARY VASCULATURE: Normal. LUNGS: Clear. PLEURAL SPACE: No pleural effusion or pneumothorax. BONE:Within normal limits for the patient's age. OTHER FINDINGS:Normal. IMPRESSION: No acute pulmonary findings. DATA REPOSITORY: RADIATION DOSE DELIVERED:
[2020-04-29 12:31] LABS: Hemoglobin A1C 6.9 % (<5.7)
--- NOTE | 2020-04-29 12:32 | W.ORTHOCONSU ---
Date of service: 04/29/20 Time of Service: 12:32 History of Present Illness History of Present Illness Chief Complaint: Left hip pain Narrative: Leanne is a 64-year-old who was at home. She reports getting up out of bed last night. She is uncertain but denies any loss of consciousness but she went down and fell on her left side. She was unable to stand on that left leg. She was able to move back to bed but was unable to tolerate any motion of the left leg and was unable to stand. Therefore EMS was called and she was brought to the [facility] emergency department. She is diagnosed with a displaced subcapital femoral neck fracture on the left side. She denies any premorbid hip pain. She is independent ambulator in the community. She is otherwise had uneventful medical history except for this past summer when she was brought in with a picture of necrotizing fasciitis and a new diagnosis of diabetes. She was hospitalized for almost 3 weeks at [facility] and managed all of her wounds afterwards at home. She no longer has any wounds requiring dressing changes. She has completed all antibiotic courses. She is taking insulin on a daily basis with self-reported improvements in sugar control. Her kidney disease has also improved and she is set for a follow-up in June given the improvements. She denies being particularly physically active although she ambulates independently in her home and in the community. She denies any knee or foot pain of that left side. No head trauma. Consults Consult date: 04/29/20 Requesting physician: Calixto Roy Consult Reason Left femoral neck fracture Assessment and Plan Assessment and plan (1) Left displaced femoral neck fracture: Status: Acute Assessment and plan: Leanne is a 64-year-old who is in much better health now than she was back in the summer. She has been able to recover from her gluteal infection and her diabetes is in much better control. Unfortunately, she fell early this morning and suffered a displaced femoral neck fracture. I discussed treatment options with Leanne and with her by phone. I would recommend at this point operative fixation to allow immediate weightbearing and repositioning and movement. Since she is 64 years old, the literature would support proceeding with a total hip replacement. I did discuss the differences between a hemiarthroplasty and total hip arthroplasty. She is not particularly active but due to her age I do think a total hip is the best choice. I am concerned about her history of infection although this did correspond when she was in diabetic ketoacidosis with undiagnosed diabetes. Her sores are healing and it sounds like her and her are taking much better care of themselves. Even though she is not active and walking and other physical activities, a total of arthroplasty would in the longer be the better choice. It does come with added risk of infection which would obviously change everything but at this point I think it makes the most sense. I reviewed all the risk with Leanne and her . These included bleeding, infection, pain, stiffness, damage to nerves and vessels, damage to muscles and tendons, leg length inequality, blood clot, cardiopulmonary demise, wound healing complications. Despite these risk, she elects to proceed. She will be kept n.p.o. tonight. I appreciate hospital medicine management for preoperative clearance especially given the recent new diagnoses that she carries. Unfortunately, she is a slightly higher risk given her recent infection and her new diagnosis of diabetes and chronic kidney disease. We will plan for a total replacement tomorrow. N.p.o. after midnight. Review of Systems All systems reviewed & are unremarkable except as noted in HPI and below PFSH Medical History (Updated 04/30/20 @ 05:53 by Brigido Neff MD) Bacteremia due to other bacteria DKA (diabetic ketoacidoses) Family History Father Diabetes Brother Diabetes Social History Smoking/Tobacco Use Status: Never Smoking risk assessment performed?: Yes Alcohol Intake: never Drug use: Never Substance use type: does not use Adopted: No Caregiver/Support person: No Foster care: No Household members: spouse Housing: apartment Do you need help understanding health information?: Rarely current occupation: Unemployed Do you think of yourself as: straight/heterosexual Current gender identity: female Do you feel safe at home: Yes Do you feel safe in your relationship?: Yes Additional Social history: Lives with [place] [address]. threatening litigation about no entry to ED with (visitor policy) 04/29/20 Exam Narrative Exam Narrative: Leanne is resting in the bed in the supine position. She does not appear to be in any acute distress. She is alert and oriented x3. She is conversant and participates in the examination fully with a congruent mood and a normal affect. Evaluation of the left leg shows no overlying skin changes throughout the left leg. The groin fold and the anterior thighs without defects or signs of infection. Given her pain with any particular motion, I did not fully evaluate her perineum although she reports to be free and clear of current infection with no regular wounds. The remainder of the thigh soft and compressible. No ecchymosis. The left leg is shortened and externally rotated. Range of motion of the hip was not tested given the known fracture. She is able demonstrate active ankle dorsiflexion, plantarflexion, great toe extension, great toe flexion. She endorses full sensation over the superficial and deep peroneal nerves and tibial nerve. Both distal legs have some signs of excoriation although much more on the right side. These are all healed and healing. There are no active lesions with any exposed deep tissue. No surrounding areas of cellulitis or other concerning features. Results Last Vital Signs Temp 36.5 C 04/29/20 09:15 Pulse 93 H 04/29/20 09:15 Resp 18 04/29/20 09:15 BP 154/59 H 04/29/20 09:15 Pulse Ox 95 04/29/20 09:15 Labs Result diagrams: 04/29/20 09:45 04/29/20 09:45 Labs: Laboratory Results - last 24 hr 04/29/20 04/29/20 04/29/20 09:45 09:45 09:45 WBC 15.34 H RBC 4.32 Hgb 12.2 Hct 36.8 MCV 85.2 MCH 28.2 MCHC 33.2 RDW 12.7 Plt Count 412 H MPV 10.7 Immature Gran % 0.7 Neutrophils % 92.2 Lymphocytes % 4.2 Monocytes % 2.5 Eosinophils % 0.1 Basophils % 0.3 Nucleated RBC % 0 Absolute Neutrophils 14.14 H Absolute Lymphocytes 0.64 L Absolute Monocytes 0.38 Absolute Eosinophils 0.02 Absolute Basophils 0.05 Sodium 137 Potassium 5.1 Chloride 106 Carbon Dioxide 16.9 L Anion Gap 14.1 H BUN 44 H Creatinine 1.92 H Estimated GFR/1.73 m2 26.46 Glucose 174 H Hemoglobin A1c 6.9 H Calcium 9.4 Total Bilirubin 0.3 AST 33 ALT 55 Alkaline Phosphatase 161 H Total Protein 8.6 H Albumin 3.4 Imaging Imaging Studies: X-ray of the pelvis and left femur demonstrates a displaced subcapital femoral neck fracture. There is complete displacement with notable shortening. There is also some acetabular spurring and subchondral sclerosis seen on the superior acetabulum which likely represent some underlying mild arthritis. No other suspicious lesions are identified.
--- NOTE | 2020-04-29 12:43 | W.PM.HP.N ---
Date of service: 04/29/20 Time of Service: 12:44 Assessment and Plan Assessment and plan (1) Fracture of hip, left, closed: Status: Acute Assessment and plan: will be followed/repaired by Dr Neff, medically cleared for intermediate intrinsic cardiac risk, echo shows left ventricular chamber size, wall thickness, global and segmental systolic function are within normal limits. Ejection is estimated to be 55%. There are no left ventricular segmental wall motion abnormalities. No significant valvular abnormalities. planned surgery for tomorrow. routine pre-operative management pain management (2) CKD (chronic kidney disease): Status: Chronic Assessment and plan: stable, will follow closely, avoid nephrotoxic drugs, renal dosing as needed last saw nephrology 02/29/20 and scheduled follow up 06/2020 (3) Hypertension: Status: Chronic Assessment and plan: blood pressure controlled. she no longer takes her CCB d/t hypotension. will monitor (4) T2DM (type 2 diabetes mellitus): Status: Acute Assessment and plan: hemoglobin A1C 6.9, diabetic diet, will be NPO after midnight sliding scale ac/hs discussed with Dr Muñoz History of Present Illness History of Present Illness Chief Complaint: hip pain Narrative: patient with a reported mechanical fall, presents to ED after not being able to re-ambulate on it. fall was reported at 1 am. assisted her back to bed. no other injury. ED work up shows impacted subcapital fracture of the left femoral neck. she received morphine for pain with effect and was seen by orthopedics who plans surgical repair tomorrow. she will be admitted to med/surg under hospitalist services. Review of Systems Constitutional Constitutional: Denies fever(s), Denies frequent falls and Reports weakness (generalized) ENT Ears, Nose, Mouth, and Throat: Denies vertigo and Denies dizziness Cardiovascular Cardiovascular: Denies chest pain, Denies syncope, Denies rapid heart rate, Denies palpitations and Denies dyspnea Respiratory Respiratory: Denies cough and Denies dyspnea Gastrointestinal Gastrointestinal: Denies abdominal pain Musculoskeletal Musculoskeletal: Reports arthralgias (left hip) Integumentary/Breasts Skin/Breast: Reports lesions (right lower extremity, [place] [facility] Neurologic Neurologic: Denies confusion, Denies vertigo, Denies dizziness, Denies syncope, Denies frequent falls, Denies localized weakness and Reports weakness (generalized) Psychiatric Psychiatric: Denies confusion Endocrine Endocrine: Denies palpitations [facility] Medical History (Updated 04/30/20 @ 05:53 by Brigido Neff MD) Bacteremia due to other bacteria DKA (diabetic ketoacidoses) Family History Father Diabetes Brother Diabetes Social History Smoking/Tobacco Use Status: Never Smoking risk assessment performed?: Yes Alcohol Intake: never Drug use: Never Substance use type: does not use Adopted: No Caregiver/Support person: No Foster care: No Household members: spouse Housing: apartment Do you need help understanding health information?: Rarely current occupation: Unemployed Do you think of yourself as: straight/heterosexual Current gender identity: female Do you feel safe at home: Yes Do you feel safe in your relationship?: Yes Additional Social history: Lives with [place]. threatening litigation about no entry to ED with (visitor policy) 04/29/20 Meds Home Medications and Allergies Home Medications Medication Instructions Recorded Confirmed Type vitamin B complex-vitamin C-folic 1 tab PO DAILY 01/22/20 04/29/20 History acid 1 mg tablet pen needle, diabetic 31 gauge x #30 each 01/25/20 03/27/20 Rx 3/16 foam bandage 4 X 4 #1 ea 03/31/20 History blood sugar diagnostic #100 ea 04/05/20 Rx insulin glargine [Lantus Solostar 20 unit SC DAILY AM 04/29/20 04/29/20 History U-100 Insulin] Allergies Allergy/AdvReac Type Severity Reaction Status Date / Time amlodipine AdvReac Unknown dizzyness Verified 04/29/20 09:22 Exam Const General: cooperative, disheveled, frail appearing and ill appearing (older appearing than stated age) chronically Nutritional Appearance: overweight Orientation: alert, awake and oriented x3 HENMT Head: normal to inspection, normocephalic and atraumatic Mouth: moist mucous membranes abnormal (slightly dry) Resp Effort & Inspection: normal respiratory effort Auscultation: clear to auscultation bilaterally Cardio Rate: regular rate Rhythm: regular rhythm GI Inspection: normal to inspection and obesity Palpation: soft Auscultation: normal bowel sounds Skin Lesions: lesion noted (right lower extremity, see nursing documentation) Rashes: no rashes Neuro General: patient alert, patient awake, patient oriented x3 and no focal motor deficits Extrem General: edema (trace, wearing teds and SCD's) Laterality: bilateral Results Labs Result diagrams: 04/30/20 06:55 04/30/20 06:55 Labs: Laboratory Results - last 24 hr 04/29/20 04/29/20 04/29/20 09:45 09:45 09:45 WBC 15.34 H RBC 4.32 Hgb 12.2 Hct 36.8 MCV 85.2 MCH 28.2 MCHC 33.2 RDW 12.7 Plt Count 412 H MPV 10.7 Immature Gran % 0.7 Neutrophils % 92.2 Lymphocytes % 4.2 Monocytes % 2.5 Eosinophils % 0.1 Basophils % 0.3 Nucleated RBC % 0 Absolute Neutrophils 14.14 H Absolute Lymphocytes 0.64 L Absolute Monocytes 0.38 Absolute Eosinophils 0.02 Absolute Basophils 0.05 Sodium 137 Potassium 5.1 Chloride 106 Carbon Dioxide 16.9 L Anion Gap 14.1 H BUN 44 H Creatinine 1.92 H Estimated GFR/1.73 m2 26.46 Glucose 174 H Hemoglobin A1c 6.9 H Calcium 9.4 Total Bilirubin 0.3 AST 33 ALT 55 Alkaline Phosphatase 161 H Total Protein 8.6 H Albumin 3.4 Urine Color Urine Clarity Urine pH Ur Specific [place] Urine Protein Urine Ketones Urine Blood Urine Nitrite Urine Bilirubin Urine Urobilinogen Ur Leukocyte Esterase Urine Glucose 04/29/20 12:22 WBC RBC Hgb Hct MCV MCH MCHC RDW Plt Count MPV Immature Gran % Neutrophils % Lymphocytes % Monocytes % Eosinophils % Basophils % Nucleated RBC % Absolute Neutrophils Absolute Lymphocytes Absolute Monocytes Absolute Eosinophils Absolute Basophils Sodium Potassium Chloride Carbon Dioxide Anion Gap BUN Creatinine Estimated GFR/1.73 m2 Glucose Hemoglobin A1c Calcium Total Bilirubin AST ALT Alkaline Phosphatase Total Protein Albumin Urine Color Cancelled Urine Clarity Cancelled Urine pH Cancelled Ur Specific [place] Cancelled Urine Protein Cancelled Urine Ketones Cancelled Urine Blood Cancelled Urine Nitrite Cancelled Urine Bilirubin Cancelled Urine Urobilinogen Cancelled Ur Leukocyte Esterase Cancelled Urine Glucose Cancelled Last Vital Signs Temp 36.5 C 04/29/20 09:15 Pulse 91 H 04/29/20 12:33 Resp 16 04/29/20 12:33 BP 130/57 L 04/29/20 12:33 Pulse Ox 96 04/29/20 12:33 COVID-19 Screening Have you, or household traveled for leisure in last 14 days?: No Had IN PERSON contact w/suspected or confirmed C-19 person: No
[2020-04-29 12:49] LABS: Prothrombin Time 10.2 sec (9.3-11.0)
[2020-04-29 12:51] LABS: Bilirubin Negative (Negative); Blood Trace-intact (Negative); Clarity Sl Cloudy (Clear); Glucose Negative (Negative); Ketones Negative (Negative); Leukocyte Esterase Negative (Negative); Nitrite Positive (Negative); Urobilinogen 0.2 EU/dL (Up TO 0.2); pH 5.5 (5-8)
[2020-04-29 12:57] LABS: Creatine Kinase 120 U/L (26-192)
[2020-04-29 13:02] LABS: Bacteria Many HPF (Negative); Crystals Negative HPF (Negative); Epithelial Cells Rare HPF (Negative); RBC 0-2 HPF (0-2)
[2020-04-29 13:03] LABS: Mucus Negative (Negative)
[2020-04-29 13:06] LABS: C & S Indicated? Yes
[2020-04-29] MEDS: Normal Saline 1,000 ML 125 ML IV ×2 (14:19→21:54)
--- NOTE | 2020-04-29 17:00 | RT.EKG_ITS ---
APPROVED REPORT Exam: Resting ECG Patient Location: I HR:84 bpm ECG Measurements Heart Rate 84 AXIS MI 167 P 60 QRSd 77 QRS 3 QT 361 T 35 QTc 427 Conclusion Sinus rhythm...normal P axis, V-rate 60- 99 Atrial premature complex...SV complex w/ short R-R interval Low voltage, extremity leads...all extremity leads <0.5mV
[2020-04-29] MEDS: MORPHine 2 MG/ML SYR IVP ×2 (17:42→21:50)
[2020-04-30] VITALS (23 sets, daily range): BP systolic 58–146; BP diastolic 25–97; PULSE 79–91; RESP 12–20; TEMP 36.5–37.6; O2SAT 95–100
[2020-04-30] MEDS: Normal Saline 1,000 ML 125 ML IV ×2 (05:35→12:27)
[2020-04-30 07:09] LABS: Abs Immature Grans 0.02 10^3/uL (0.0-0.06); Absolute Basophil Count 0.05 10^3/uL (0.0-0.2); Absolute Eosinophil Count 0.24 10^3/uL (0.0-0.7); Absolute Lymphocyte Count 2.02 10^3/uL (1.2-3.4); Absolute Monocyte Count 0.59 10^3/uL (0.1-0.8); Absolute Neutrophil Count 5.01 10^3/uL (1.2-6.7); Basophils % 0.6; HCT 30.3 % (36.0-46.0); HGB 9.7 g/dL (11.2-15.7); Immature Grans % 0.3; Lymphocytes % 25.5; MCH 27.9 pg (27.0-33.0); MCV 87.1 fL (80-95); MPV 10.5 fL (8.0-11.0); Monocytes % 7.4; Neutrophils % 63.2; Nucleated RBC 0 %; Platelet Count 283 10^3/uL (130-400); RBC 3.48 10^6/uL (3.93-5.22); RDW 12.9 % (11.7-14.6); RDW-SD 41.3 fL; WBC 7.93 10^3/uL (4.4-10.8)
[2020-04-30 07:42] LABS: Anion Gap 10.8 mmol/L (3-11); BUN 34 mg/dL (7-18); CO2 18.2 mmol/L (21.0-32.0); CREATININE 1.64 mg/dL (0.55-1.02); Calcium 8.6 mg/dL (8.5-10.1); Chloride 112 mmol/L (98-107); Estimated GFR 31.74 (mL/min/1.73m2); Glucose 89 mg/dL (74-106); Magnesium 1.7 mg/dL (1.8-2.4); Potassium 4.4 mmol/L (3.5-5.1); Sodium 141 mmol/L (136-145); TSH (W/Ref FT4) 2.23 uIU/mL (0.36-3.74)
--- NOTE | 2020-04-30 08:03 | PGE_ITS ---
Date of Service Date of service: 04/30/20 Time of Service: 07:24 Assessment and Plan Assessment and plan (1) Left displaced femoral neck fracture: Status: Acute Assessment and plan: Leanne is a 64-year-old who has a displaced fracture of her left femoral neck. Given her young age I would recommend a hip replacement. I did discuss her the difference between the hemiarthroplasty and a total hip arthroplasty. Although she is not that active she is 64 and is in much better health now than she was is a few months ago. Therefore, I will proceed with a hip replacement on the left side. I reviewed the risk of the procedure to include bleeding, infection, pain, stiffness, hardware loosening, need for repeat procedures, damage to nerves and vessels, damage to muscles and tendons, leg with inequality, blood clot, cardiopulmonary demise. Despite these risks, she elects to proceed. She is NPO. We will proceed with surgery this afternoon. After surgery she may convert to aspirin 81 mg twice daily for DVT prophylaxis. Will start physical therapy, hopefully this afternoon, weightbearing as tolerated. Likely discharge to home in 1 to 2 days. Subjective Subjective Interval history since last seen: Normal reports no changes from yesterday. She continues have pain about the left hip with any attempted movement. However, she is otherwise comfortable. She denies chest pain or shortness of breath. She has had no new complaints. She has been evaluated by the medicine team and cleared for surgery today. Exam Narrative Exam Narrative: Resting in the supine position. Left leg is shortened and externally rotated. No acute changes to the overlying skin of the left thigh. Mild swelling. No ecchymosis. No skin defects. No rashes or lesions within the anterior groin of the left hip. Objective Last Vital Signs Temp 37.0 C 04/30/20 07:40 Pulse 86 04/30/20 07:40 Resp 18 04/30/20 07:40 BP 146/73 H 04/30/20 07:40 Pulse Ox 95 04/30/20 07:40 Laboratory Results - last 24 hr 04/29/20 04/29/20 04/29/20 09:45 09:45 09:45 WBC RBC Hgb Hct MCV MCH MCHC RDW Plt Count MPV Immature Gran % Neutrophils % Lymphocytes % Monocytes % Eosinophils % Basophils % Nucleated RBC % Absolute Neutrophils Absolute Lymphocytes Absolute Monocytes Absolute Eosinophils Absolute Basophils PT 10.2 INR 1.0 Sodium Potassium Chloride Carbon Dioxide Anion Gap BUN Creatinine Estimated GFR/1.73 m2 Glucose Hemoglobin A1c 6.9 H Calcium Magnesium Creatine Kinase 120 TSH Urine Color Urine Clarity Urine pH Ur Specific [place] Urine Protein Urine Ketones Urine Blood Urine Nitrite Urine Bilirubin Urine Urobilinogen Ur Leukocyte Esterase Urine RBC Urine WBC Ur Epithelial Cells Urine Crystals Urine Bacteria Urine Casts Urine Mucus Ur Culture Indicated? Urine Glucose COVID-19 PCR Nasopharyn COVID-19 PCR Ref Test Perform Site 04/29/20 04/29/20 04/29/20 10:45 12:22 12:30 WBC RBC Hgb Hct MCV MCH MCHC RDW Plt Count MPV Immature Gran % Neutrophils % Lymphocytes % Monocytes % Eosinophils % Basophils % Nucleated RBC % Absolute Neutrophils Absolute Lymphocytes Absolute Monocytes Absolute Eosinophils Absolute Basophils PT INR Sodium Potassium Chloride Carbon Dioxide Anion Gap BUN Creatinine Estimated GFR/1.73 m2 Glucose Hemoglobin A1c Calcium Magnesium Creatine Kinase TSH Urine Color Cancelled Yellow Urine Clarity Cancelled Sl cloudy Urine pH Cancelled 5.5 Ur Specific [place] Cancelled 1.020 Urine Protein Cancelled Negative Urine Ketones Cancelled Negative Urine Blood Cancelled Trace-intact H Urine Nitrite Cancelled Positive H Urine Bilirubin Cancelled Negative Urine Urobilinogen Cancelled 0.2 Ur Leukocyte Esterase Cancelled Negative Urine RBC 0-2 Urine WBC 5-10 Ur Epithelial Cells Rare Urine Crystals Negative Urine Bacteria Many Urine Casts Comment Urine Mucus Negative Ur Culture Indicated? Yes Urine Glucose Cancelled Negative COVID-19 PCR Negative Nasopharyn COVID-19 PCR Not Applicable Ref Test Perform Site [facility] 04/30/20 04/30/20 06:55 06:55 WBC 7.93 D RBC 3.48 L Hgb 9.7 L D Hct 30.3 L MCV 87.1 MCH 27.9 MCHC 32.0 RDW 12.9 Plt Count 283 D MPV 10.5 Immature Gran % 0.3 Neutrophils % 63.2 Lymphocytes % 25.5 Monocytes % 7.4 Eosinophils % 3.0 Basophils % 0.6 Nucleated RBC % 0 Absolute Neutrophils 5.01 Absolute Lymphocytes 2.02 Absolute Monocytes 0.59 Absolute Eosinophils 0.24 Absolute Basophils 0.05 PT INR Sodium 141 Potassium 4.4 Chloride 112 H Carbon Dioxide 18.2 L Anion Gap 10.8 BUN 34 H D Creatinine 1.64 H Estimated GFR/1.73 m2 31.74 Glucose 89 D Hemoglobin A1c Calcium 8.6 Magnesium 1.7 L Creatine Kinase TSH 2.23 Urine Color Urine Clarity Urine pH Ur Specific [place] Urine Protein Urine Ketones Urine Blood Urine Nitrite Urine Bilirubin Urine Urobilinogen Ur Leukocyte Esterase Urine RBC Urine WBC Ur Epithelial Cells Urine Crystals Urine Bacteria Urine Casts Urine Mucus Ur Culture Indicated? Urine Glucose COVID-19 PCR Nasopharyn COVID-19 PCR Ref Test Perform Site
[2020-04-30] MEDS: MAGNESIUM SULFATE 1 GM/100 ML BAG IVPB (09:15)
[2020-04-30 09:23] LABS: COVID-19 RT-PCR UVMMC Result Negative (Negative)
--- NOTE | 2020-04-30 10:34 | PDOC.CMIN ---
- If Service Date Differs Date of service: 04/30/20 Time of Service: 10:35 Care Management Initial Assess REASON FOR HOSPITALIZATION:: Fracture femur PAST MEDICAL HISTORY/PAST SURGICAL HISTORY:: CKD, DM, HTN, anemia PREVIOUS FUNCTIONAL STATUS/SOCIAL/FAMILY SUPPORTS:: Leanne lives with her spouse Choco in [place], [place] in an apartment. She is disabled. CURRENT FUNCTIONAL STATUS:: Leanne is down in the OR at time of CM visit. CM will meet with her post recovery to determine plan for dispsosition. ADVANCE DIRECTIVES:: None on file CM to offer Advance directive forms and assistance and answer questions to assist. Has patient been provided with info about the portal/API?: No Did the patient sign up for the portal?: No (Will offer) CODE STATUS:: Full Code INSURANCE COVERAGE / FINANCIAL ISSUES:: [employer], [employer] CURRENT HOME/COMMUNITY SERVICES/EQUIPMENT:: None at this time. PRIMARY CARE PHYSICIAN:: Korina Ibanez POTENTIAL DISCHARGE NEEDS:: Disposition to be determined PATIENT/FAMILY EDUCATION NEEDS:: Discharge education, limitations and follow up plan of care. ANTICIPATED BARRIERS TO DISCHARGE:: To be determined post op TRANSPORTATION:: Pending disposition PLAN:: Leanne is having her surgery today, disposition to be determined based on her ability to care for herself at home with assistance from her spouse. CM will meet with the patient to determined level of care and review with PT discharge needs and services.
--- NOTE | 2020-04-30 11:45 | PHA.REVIEW ---
Pharmacy Admission Review - Admission Clinical Review (Last Reviewed 04/30/20 @ 05:50 by Brigido Neff MD) Left displaced femoral neck fracture (Acute) Fracture of hip, left, closed (Acute) T2DM (type 2 diabetes mellitus) (Acute) amlodipine Adverse Reaction (Unknown, Verified 04/29/20 09:22) yusuf Height 4 ft 11.06 in Weight 71.9 kg - Renal Dosing Renal Dosing: BUN 34 mg/dL (7-18) H D 04/30/20 06:55 Creatinine 1.64 mg/dL (0.55-1.02) H 04/30/20 06:55 Medications needing adjustments: Reviewed (current orders okay, watch for addition of any nephrotoxic drugs post-op) - Anticoagulation Anticoagulation: Hgb 9.7 g/dL (11.2-15.7) L D 04/30/20 06:55 Hct 30.3 % (36.0-46.0) L 04/30/20 06:55 Plt Count 283 10^3/uL (130-400) D 04/30/20 06:55 INR 1.0 (0.9-1.1) 04/29/20 09:45 Creatinine 1.64 mg/dL (0.55-1.02) H 04/30/20 06:55 DVT Prohphylaxis: N/A (likely will be ordered post-op) - Opiate Usage Evaluate Pain Scale/Pains Meds: Reviewed Scheduled Bowel Reg ordered if on Opiates?: Yes - Relevant Labs Sodium 141 mmol/L (136-145) 04/30/20 06:55 Potassium 4.4 mmol/L (3.5-5.1) 04/30/20 06:55 Chloride 112 mmol/L (98-107) H 04/30/20 06:55 Magnesium 1.7 mg/dL (1.8-2.4) L 04/30/20 06:55 Electrolytes, C-Reactive P, ESR: Reviewed - DM Control DM Control: Glucose 89 mg/dL (74-106) D 04/30/20 06:55 Hemoglobin A1c 6.9 % (<5.7) H 04/29/20 09:45 Finger Stick Blood Glucose 89 Finger Stick Blood Glucose 89 Finger Stick Blood Glucose 91 Finger Stick Blood Glucose 91 Finger Stick Blood Glucose 91 Insulin Dosing: Reviewed (aspart ordered, home dose = 20U glargine daily) - Heart Failure/[place] EF%, ALYSA's, B-Blockers, Diuretics: Reviewed - BP Control BP Control: Blood Pressure 146/73 Blood Pressure 113/67 If elevated: Intervened (amlodipine recently dc'd due to hypotension, if needed should consider an ACEI or an ARB given DM+CKD with a BP goal of <130/80) - Qtc Review If Elevated: N/A - IV to PO Switch IV Medications: Reviewed - Home Meds Home Med List reviewed: Reviewed - Current meds Current Medication Order Review: Reviewed (only preop dose of cefazolin ordered -- watch for post-op orders)
--- NOTE | 2020-04-30 12:30 | DI.RAD_ITS ---
EXAM: XR HIP LT IN OR CLINICAL HISTORY: Left displaced femoral neck fracture TECHNIQUE: 2D and realtime digital imaging was performed. CONTRAST MATERIAL: Refer to procedure report. COMPARISON: CR XR HIP LT COMPLETE AP PELVIS from 04/29/2020 CR XR FEMUR LT from 04/29/2020 FINDINGS: Fluoroscopy was provided for Dr. Neff during the performance of a left total hip replacement. P emily refer to the procedure report for complete details. Fluoro time: 47.3 seconds IMPRESSION: RADIATION DOSE DELIVERED:
[2020-04-30] MEDS: ceFAZolin 2 GM/50 ML BAG IVPB (14:09)
--- NOTE | 2020-04-30 14:58 | W.PM.PROGNOT ---
Date of Service Date of service: 04/30/20 Time of Service: 10:00 Assessment and Plan Assessment and plan (1) Fracture of hip, left, closed: Status: Acute Assessment and plan: will be followed/repaired by Dr Neff, medically cleared for intermediate intrinsic cardiac risk, echo shows left ventricular chamber size, wall thickness, global and segmental systolic function are within normal limits. Ejection is estimated to be 55%. There are no left ventricular segmental wall motion abnormalities. No significant valvular abnormalities. planned surgery today. routine pre-operative management pain management (2) CKD (chronic kidney disease): Status: Chronic Assessment and plan: improved overnight with hydration, will follow closely, avoid nephrotoxic drugs, renal dosing as needed last saw nephrology 02/29/20 and scheduled follow up 06/2020 (3) Hypertension: Status: Chronic Assessment and plan: blood pressure well controlled. she no longer takes her CCB d/t hypotension. will monitor (4) T2DM (type 2 diabetes mellitus): Status: Acute Assessment and plan: hemoglobin A1C 6.9, diabetic diet, NPO for procedure sliding scale ac/hs (5) Anemia: Status: Chronic Assessment and plan: likely multifactoral and chronic, dilution, in setting of CKD. will add iron studies. no active bleeding suspected. expect minimal surgical blood loss, will monitor closely post-operatively. add ferrous sulfate (6) DVT prophylaxis: Status: Acute Assessment and plan: teds and scd's, post operative per ortho (7) Discharge planning issues: Status: Acute Assessment and plan: case management will be following for discharge planning. anticipate home with vna vs swing level rehab discussed with Dr Muñoz Subjective Subjective Patient reports: no new complaints and still having pain (with movement only, otherwise controlled.) Interval history since last seen: has been NPO for surgical repair of hip fracture today Exam Const General: cooperative, disheveled, frail appearing and ill appearing (older appearing than stated age) chronically Nutritional Appearance: overweight Orientation: alert, awake and oriented x3 HENMT Head: normal to inspection, normocephalic and atraumatic Mouth: moist mucous membranes abnormal (slightly dry) Resp Effort & Inspection: normal respiratory effort Auscultation: clear to auscultation bilaterally Cardio Rate: regular rate Rhythm: regular rhythm GI Inspection: normal to inspection and obesity Palpation: soft Auscultation: normal bowel sounds Skin Lesions: lesion noted (right lower extremity, see nursing documentation) Rashes: no rashes Neuro General: patient alert, patient awake, patient oriented x3 and no focal motor deficits Extrem General: edema (trace, wearing teds and SCD's) Laterality: bilateral Objective Last Vital Signs Temp 37.0 C 04/30/20 07:40 Pulse 86 04/30/20 07:40 Resp 18 04/30/20 07:40 BP 146/73 H 04/30/20 07:40 Pulse Ox 95 04/30/20 07:40 Laboratory Results - last 24 hr 04/29/20 04/30/20 04/30/20 10:45 06:55 06:55 WBC 7.93 D RBC 3.48 L Hgb 9.7 L D Hct 30.3 L MCV 87.1 MCH 27.9 MCHC 32.0 RDW 12.9 Plt Count 283 D MPV 10.5 Immature Gran % 0.3 Neutrophils % 63.2 Lymphocytes % 25.5 Monocytes % 7.4 Eosinophils % 3.0 Basophils % 0.6 Nucleated RBC % 0 Absolute Neutrophils 5.01 Absolute Lymphocytes 2.02 Absolute Monocytes 0.59 Absolute Eosinophils 0.24 Absolute Basophils 0.05 Sodium 141 Potassium 4.4 Chloride 112 H Carbon Dioxide 18.2 L Anion Gap 10.8 BUN 34 H D Creatinine 1.64 H Estimated GFR/1.73 m2 31.74 Glucose 89 D Calcium 8.6 Magnesium 1.7 L TSH 2.23 COVID-19 PCR Negative Nasopharyn COVID-19 PCR Not Applicable Ref Test Perform Site [facility]
[2020-04-30] MEDS: Ketorolac 30 MG/ML VIAL (15:25)
[2020-04-30] MEDS: Bupivacaine 0.25% Pres-Free 30 ML VIAL (15:25)
[2020-04-30 15:39] LABS: HCT 32.5 % (36.0-46.0); HGB 10.2 g/dL (11.2-15.7)
--- NOTE | 2020-04-30 15:54 | ROE_ITS ---
Date of service: 04/30/20 Time of Service: 15:54 Operative Note Operative Note DATE OF PROCEDURE: 04/30/20 PRE-OP DIAGNOSIS: Left Femoral Neck Fracture POST-OP DIAGNOSIS: same PROCEDURE: Left Anterior Total Hip Arthroplasty SURGEON: Brigido Neff REORDERING CLERK: Yudelka Argueta ANESTHESIA: spinal ESTIMATED BLOOD LOSS: 800 PATHOLOGY: none sent COMPLICATIONS: None Patient was transported to: PACU Patient's condition: stable Implants: 1. Depuy [place] Acetabular Component, 50mm 2. Depuy Acetabular Liner, 30p42bi 3. Depuy Corail Standard 125 Collared Femoral Stem, Size 12 4. Depuy Altrx Ceramic Femoral Head, Size 32+5mm Indications: I have seen Leanne in the ED for a displaced femoral neck fracture. Given the displaced nature of the fracture, its propensity for failure with any internal fixation techniques I recommended a replacement. Although she is not particularly active she is young at 64 and therefore recommended a total hip replacement as supported in the more recent literature for longevity and return to activity. I discussed the technical details of a hip replacement. I explained the risks of the procedure to include, but not limited to, bleeding, infection, pain, stiffness, fracture, damage to nerves and vessels, damage to muscles and tendons, loosening, instability, leg length inequality, need for repeat procedure, blood clot and cardiopulmonary demise. Despite these risks, Leanne elected to proceed. Findings: There is a subcapital femoral neck fracture. The bone of the proximal femoral neck and of the femoral head was quite poor and very soft. There was some chondromalacia seen of the superior acetabulum. Significant bleeding from all bony surfaces including soft tissue around the hip. Procedure Description: Leanne was greeted in the preoperative holding area where the correct side was identified and marked. The consent was reviewed with the patient and signed on the medical surgical floor. The history and physical was updated. All questions were answered. Leanne was taken back to the operating room. A spinal anesthestic was then administered. The feet were wrapped with cast padding and Coban and then placed into the boot liners and then into the boots. Care was taken to protect the skin and make sure the heels were fully down and the boots were stable. The patient was then positioned onto the HANA table. Both legs were held in a neutral position. SCDs were applied. The patient was then slid down onto a peroneal post. A preoperative AP pelvis was obtained to serve as a reference for determining leg lengths. Prophylactic antibiotics in the form of cefazolin were administered. 1g of Tranxemic Acid was given intravenously within 30 minutes of incision. The left leg was then prepped with Chloraprep and draped in a standard fashion. A second prep with Chloraprep was performed prior to placement of a shower-curtain type drape with Iodine impregnated skin protection. A timeout to confirm correct identity, side and site, procedure, al lergies, anesthesia, and medical concerns was performed. An obliquely oriented incision was made starting lateral to the ASIS and running distal over the Tensor Fascia Debby (TFL) muscle belly toward the fibular head, approximately 10cm. The skin and soft tissue was dissected sharply, through Jude?s fascia, and to the fascia of the TFL. With the fascia and superior border of the IT band identified, the fascia was incised with a new knife just above any perforators from the IT band. The TFL muscle belly was bluntly dissected away from the fascia and moved laterally. The fat between TFL and rectus was identified to ensure the dissection was not within the TFL. Blunt dissection created space between abductors and the capsule and retractor was placed over the lateral femoral neck. The fibers of the rectus femoris tendon were identified and these were freed from the anterior capsule. A second cobra retractor was placed around the medial femoral neck. The TFL was further retracted laterally to show the deep fascia. Careful dissection through this layer identified three main crossing vessels of the lateral femoral circumflex. These were cauterized in multiple locations and then cut without any noticeable bleeding. The TFL was further released bluntly from the deep fascia to expose anterior hip capsule and fat the Saul orthopaedic retractor was then placed beneath the TFL and against sartorius and medial soft tissues to protect and retract the soft tissues. A T-capsulotomy was then performed starting at the superior lateral acetabulum and moving distally to the intertrochanteric ridge. These capsular flaps were tagged with a No. 1 Ethibond and elevated from within. The capsular flaps were released to the shoulder of the lateral neck and to the lesser trochanter to give excellent visualization of the proximal femur. A neck osteotomy was performed using an oscillating saw based on preoperative templates. This cut started in the shoulder and of the lateral neck and exited medially. The saw was at all times directed medially to avoid injury to the greater trochanter. Traction was applied to the leg and the osteotomy opened. The wedge created between the fractured femoral head and the neck cut was then removed. This bone literally crumbled on its way out and came out piecemeal. I was unable to place a corkscrew into the femoral head given how soft the bone was. The femoral head was freed with an Hutchins elevator and then removed with a rongeur. An anterior retractor was placed over the anterior wall between capsule and labrum and attached to the Gripper retraction system. The femur was rotated to 90 degrees and medial capsule was fully released until the lesser trochanter was palpable and visible. This was done in a typical fashion el evating off the capsule from the bone itself. However, there was bleeding encountered during this which is quite unusual. Retraction of the proximal edge of the vastus lateralis was utilized to evaluate for any bleeding. There was what appeared to be a large photograph inspector at the level of the capsular attachment to the femur with a sidewall type injury. This did produce some blood loss which was fairly persistent although not overwhelming. Eventually I gained control of the bleeding. However, it seemed that from this point forward there is a notable amount of ooze from all tissues without any one area of bleeding. Therefore I continue with the case trying to move expeditiously. The femur was returned to 30 degrees. A posterior retractor was placed similarly between capsule and labrum. This provided excellent visualization. The contents of the cotyloid fossa were removed with electrocautery and the labrum was removed with a knife. There was some chondromalacia seen of the superior acetabulum. Acetabular reaming began with a 46 mm reamer. This first reaming was directed anterior to posterior and medial to get down to the true floor. This was inspected and reamed until the true floor was reached. The anterior retractor was then released and entry and exit was provided by traction on the capsular flaps. I then reamed sequentially up to a 49 mm reamer where good fit was obtained. The larger reamers were oriented based on anatomical reference of the anterior and lateral bean to ensure proper abduction and anteversion. Positioning and size was confirmed with the fluoroscopy. A 50 mm Depuy [place] acetabular component was selected. The acetabulum was reamed around the periphery with the selected acetabular size to prevent a rim fit. The deep tissues were irrigated. The acetabular component was then impacted in a position of about 40-45 degrees of abduction and 15-20 degrees of anteversion, using the patient?s anatomy as the ultimate landmark. Fluoroscopy was used to confirm this. There was excellent it systems analyst of the acetabular component and the inserting handle was removed. A primary acetabular screw was placed into the ilium by drilling through one of the holes in the acetabular component. This was measured and an approrpriately sized screw was placed with excellent purchase. It was checked not to be proud. A second screw was placed in a similar fashion. The acetabular liner, Nuforceuy 50 x 32 mm polyethylene liner, was inserted and lined up with the tines of the acetabular component. There was no soft tissue interposition. The liner was then impacted into position and confirmed to be well-seated. A portion of the aurora-articular cocktail was then injected around the acetabulum into the capsule and periosteum. This cocktail consisted of 50cc of 0.25% Bupivicaine and 20cc of Exparel and 30mg of Ketorolac. The leg was rotated to 120 degrees. Any remaining medial capsule was released until the lesser trochanter was easily palpable. A retractor was placed medially. The lateral capsule was further released into the shoulder to allow access to the greater trochanter. A Cabrera retractor was placed over the greater trochanter which allowed the trochanter to flip in front of the capsule for excellent exposure. The leg was brought down into maximal extension and 20 degrees of adduction while ensuring there was no impingement on the acetabulum. Any remnant capsule within the trochanter was released. Piriformis and obturator externis were identified and protected. There was excellent access to the proximal femur. The lateral neck remnant was removed with a rongeur. A blunt canal probe was used to identify the canal and trajectory for later broaching. A box osteotome initiated the broach course. A small curved rasp and a curved curette were used to work laterally. Broaching then began with a size 8 [place] broach. This was inserted manually around the trochanter and into the canal before mallet blows. The broach was seated to the neck cut level based on the neck cut and the preoperative template. Sequential broaching was continued with the CoupOptionse pneumatic broaching device until a tight fit was obtained with good rotational control of the femur. A trial standard short neck was inserted along with a +1 trial head. The leg was brought out of extension and adduction and then reduced with traction and internal rotation. The leg was stable anteriorly in a position of 30 degrees of extension and 90 degrees of external rotation. Fluoroscopy was used to ensure there was no fracture and the stem was seated well. Leg lengths were checked with an AP pelvis and pelvic reference points. mxHero navigation system was used to confirm appropriate positioning and leg length and offset. To increase leg length and offset I went up to a 125 standard neck with a +5 head. Once content with the desired offset and leg lengths, the leg was brought back into extension, external rotation and adduction. The periosteum and surrounding tissue was injected with remaining portion of the aurora-articular cocktail. The proximal femur was irrigated as well as the deep tissues. The Depuy Corail standard 125 degree collared stem, size 12, was then manually inserted into the proximal femur making sure to control rotation. It was then malleted into position with light blows, giving breaks to allow bone expansion and decrease risk of fracture. The selected Depuy Altrx Ceramic Head, size 32+5mm, was then placed onto the clean and dry trunnion and secured with impaction onto the tapered fit. The leg was brought back out of extension and adduction and reduced with traction and internal rotation. Stability was confirmed with no shuck at 90 degrees of external rotation and 30 degrees of extension. No impingement through range of motion arc. Final x-ray images were obtained with fluoroscopy to confirm adequate positioning and no intraoperative fracture. At this point, there is very minimal bleeding. There is no active bleeding that I could evaluate realizing a large pores that came from the cut surface of the femur as well as some with elevated tissues. The deep tissues were thoroughly irrigated with Irrisept chlorhexadine solution. The second dose of TXA 1g was administered intravenously. The capsule was then reapproximated with the previously placed Ethibond sutures. The TFL fascia was finally closed with a No. 2 Stratafix, barbed suture. Deep tissues were then reapproximated with 0 Vicryl and a running 2-0 Vicryl. The skin was closed with a running 4-0 Monocryl in a subcuticular fashion. This was reinforced with skin glue. A Mepilex silver dressing was applied. At the end of the case, all counts were correct. Leanne was transferred to the hospital bed without difficulty and suffering more than expected blood loss although she appeared to be stable with very mild hypotension. A hemoglobin and hematocrit was sent and 1 unit of blood was ordered given her mild hypotension and the acute loss of blood. Leanne has a good prognosis. Physical therapy will start tomorrow and without restrictions, weight-bearing as tolerated. Aspirin 81mg BID will be used for DVT prophylaxis upon discharge.
[2020-04-30] MEDS: Ondansetron 4 MG/2 ML VIAL IVP (18:05)
[2020-04-30] MEDS: Normal Saline Flush 10 ML SYR IVP (18:12)
[2020-04-30] MEDS: diphenhydrAMINE 25 MG CAP PO (18:12)
[2020-04-30] MEDS: PIPERACILLIN/TAZO 2.25 GM in Normal Saline 50 ML IVPB (18:33)
[2020-04-30] MEDS: Normal Saline 1,000 ML 100 ML IV (19:17)
[2020-04-30 19:32] LABS: Iron 29 ug/dL (50-170); Total Iron Binding Capacity 180 ug/dL (250-450); Transferrin Sat 16 % (15-50)
[2020-05-01] MEDS: PIPERACILLIN/TAZO 2.25 GM in Normal Saline 50 ML IVPB ×5 (00:40→23:33)
[2020-05-01 02:59] VITALS: BP 115/71; PULSE 86; RESP 17; TEMP 37.3; O2SAT 97
[2020-05-01 07:19] LABS: Abs Immature Grans 0.08 10^3/uL (0.0-0.06); Absolute Basophil Count 0.05 10^3/uL (0.0-0.2); Absolute Eosinophil Count 0.11 10^3/uL (0.0-0.7); Absolute Lymphocyte Count 1.44 10^3/uL (1.2-3.4); Absolute Monocyte Count 0.94 10^3/uL (0.1-0.8); Basophils % 0.4; Eosinophils % 0.9; HGB 8.8 g/dL (11.2-15.7); Immature Grans % 0.7; Lymphocytes % 12.2; MCH 28.4 pg (27.0-33.0); MCHC 32.6 % (32.0-36.0); MCV 87.1 fL (80-95); MPV 10.9 fL (8.0-11.0); Neutrophils % 77.8; Nucleated RBC 0 %; Platelet Count 242 10^3/uL (130-400); RDW 13.1 % (11.7-14.6); RDW-SD 41.5 fL; WBC 11.77 10^3/uL (4.4-10.8)
[2020-05-01 07:25] LABS: Absolute Neutrophil Count 9.16 10^3/uL (1.2-6.7)
[2020-05-01 07:28] VITALS: BP 129/75; PULSE 93; RESP 16; TEMP 37.8; O2SAT 95
[2020-05-01 08:02] LABS: ALT 19 U/L (14-59); AST 41 U/L (15-37); Albumin 2.3 g/dL (3.4-5.0); Alkaline Phosphatase 106 U/L (46-116); BUN 31 mg/dL (7-18); Bilirubin, Total 0.6 mg/dL (0.2-1.0); CREATININE 1.93 mg/dL (0.55-1.02); Calcium 8.3 mg/dL (8.5-10.1); Chloride 113 mmol/L (98-107); Estimated GFR 26.31 (mL/min/1.73m2); Ferritin 456 ng/mL (8-252); Glucose 107 mg/dL (74-106); Potassium 4.6 mmol/L (3.5-5.1); Sodium 142 mmol/L (136-145); Total Protein 6.3 g/dL (6.4-8.2); Vitamin B12 420 pg/mL (193-986)
--- NOTE | 2020-05-01 08:03 | W.PM.PROGNOT ---
Date of Service Date of service: 05/01/20 Time of Service: 07:27 Assessment and Plan Assessment and plan (1) Left displaced femoral neck fracture: Status: Acute Assessment and plan: Leanne is a 64-year-old who is status post total hip arthroplasty for a displaced left femoral neck fracture. Her pain is much better. We will work with physical therapy starting today. She has had some hypotension which may be multifactorial. Her hemoglobin is stable this morning at 8.8. We should continue to follow her vital signs and check another hemoglobin in the morning. I would hope for discharge to home starting tomorrow after work with physical therapy today and tomorrow. Continue with tight glycemic control. Follow loose stools. Plan for home discharge on aspirin for DVT prophylaxis. Subjective Subjective Interval history since last seen: Leanne reports to be having much better pain after the surgery. The pain she was having in her hip is no longer present. She denies having any significant pain. She has had some issues with low blood pressures although they seem to be trending in the right direction. She denies fevers or chills. She has had some loose stool. She received 1 unit of blood last night due to the operative blood loss and her starting anemia. Exam Narrative Exam Narrative: Resting in the bed. Left hip dressing is clean dry and intact. Mild swelling about the thigh. No ecchymosis. Leg lengths appear equal. Sensation intact light touch over the lateral from cutaneous nerve, femoral nerve, and sciatic nerve distributions. Active dorsiflexion and plantarflexion of the left ankle as well as extension and flexion of the great toe. Objective Last Vital Signs Temp 36.5 C 05/01/20 11:30 Pulse 91 H 05/01/20 11:30 Resp 18 05/01/20 11:30 BP 106/62 05/01/20 11:30 Pulse Ox 98 05/01/20 11:30 Laboratory Results - last 24 hr 04/30/20 04/30/20 04/30/20 06:55 15:19 17:20 WBC RBC Hgb 10.2 L Hct 32.5 L MCV MCH MCHC RDW Plt Count MPV Reticulocyte % (Auto) Immature Gran % Neutrophils % Lymphocytes % Monocytes % Eosinophils % Basophils % Nucleated RBC % Absolute Neutrophils Absolute Lymphocytes Absolute Monocytes Absolute Eosinophils Absolute Basophils Sodium Potassium Chloride Carbon Dioxide Anion Gap BUN Creatinine Estimated GFR/1.73 m2 Glucose Calcium Iron 29 L TIBC 180 L Transferrin % Sat 16 Ferritin Total Bilirubin AST ALT Alkaline Phosphatase Total Protein Albumin Vitamin B12 Folate Patient ABO/Rh A Positive Antibody Screen Negative Crossmatch See Detail 05/01/20 05/01/20 05/01/20 06:57 06:57 06:57 WBC 11.77 H D RBC 3.10 L Hgb 8.8 L Hct 27.0 L MCV 87.1 MCH 28.4 MCHC 32.6 RDW 13.1 Plt Count 242 MPV 10.9 Reticulocyte % (Auto) 1.0 Immature Gran % 0.7 Neutrophils % 77.8 Lymphocytes % 12.2 Monocytes % 8.0 Eosinophils % 0.9 Basophils % 0.4 Nucleated RBC % 0 Absolute Neutrophils 9.16 H Absolute Lymphocytes 1.44 Absolute Monocytes 0.94 H Absolute Eosinophils 0.11 Absolute Basophils 0.05 Sodium 142 Potassium 4.6 Chloride 113 H Carbon Dioxide 17.0 L Anion Gap 12.0 H BUN 31 H Creatinine 1.93 H Estimated GFR/1.73 m2 26.31 Glucose 107 H Calcium 8.3 L Iron TIBC Transferrin % Sat Ferritin 456 H Total Bilirubin 0.6 AST 41 H ALT 19 Alkaline Phosphatase 106 Total Protein 6.3 L Albumin 2.3 L Vitamin B12 420 Folate > 20.0 H Patient ABO/Rh Antibody Screen Crossmatch
[2020-05-01 08:05] LABS: Folate > 20.0 ng/mL (8.6-20.0)
--- NOTE | 2020-05-01 09:05 | W.PM.PROGNOT ---
Date of Service Date of service: 05/01/20 Time of Service: 09:05 Assessment and Plan Assessment and plan (1) Fracture of hip, left, closed: Status: Acute Assessment and plan: post op day #1 routine post-operative management pain management bowel management PT/OT (2) CKD (chronic kidney disease): Status: Chronic Assessment and plan: will follow closely, avoid nephrotoxic drugs, renal dosing as needed last saw nephrology 02/29/20 and scheduled follow up 06/2020 (3) Hypertension: Status: Chronic Assessment and plan: blood pressure well controlled. she no longer takes her CCB d/t hypotension. will monitor (4) T2DM (type 2 diabetes mellitus): Status: Acute Assessment and plan: hemoglobin A1C 6.9, diabetic diet, sliding scale ac/hs (5) Anemia: Status: Chronic Assessment and plan: acute blood loss on chronic anemia. stable. will add iron supplementation and monitor. no transfusion indicated at this time (6) DVT prophylaxis: Status: Acute Assessment and plan: teds and scd's, post operative per ortho (7) Discharge planning issues: Status: Acute Assessment and plan: case management will be following for discharge planning. anticipate home with vna vs swing level rehab discussed with Dr Muñoz Subjective Subjective Patient reports: no new complaints, feels better, pain is less, tolerating liquids well, tolerating a regular diet, vomiting (one episode after eating eggs, resolved) and afebrile Interval history since last seen: has been NPO for surgical repair of hip fracture today Exam Const General: cooperative, disheveled, frail appearing and ill appearing (older appearing than stated age) chronically Nutritional Appearance: overweight Orientation: alert, awake and oriented x3 [facility] Head: normal to inspection, normocephalic and atraumatic Mouth: moist mucous membranes abnormal (slightly dry) Resp Effort & Inspection: normal respiratory effort Auscultation: clear to auscultation bilaterally Cardio Rate: regular rate Rhythm: regular rhythm GI Inspection: normal to inspection and obesity Palpation: soft Auscultation: normal bowel sounds Skin Lesions: lesion noted (right lower extremity, see nursing documentation) and other (surgical dressing clean dry and intact. ) Rashes: no rashes Neuro General: patient alert, patient awake, patient oriented x3 and no focal motor deficits Extrem General: edema (trace, wearing teds and SCD's) Laterality: bilateral Objective Last Vital Signs Temp 37.8 C H 05/01/20 07:28 Pulse 93 H 05/01/20 07:28 Resp 16 05/01/20 07:28 BP 129/75 05/01/20 07:28 Pulse Ox 95 05/01/20 07:28 Laboratory Results - last 24 hr 04/29/20 04/30/20 04/30/20 10:45 06:55 15:19 WBC RBC Hgb 10.2 L Hct 32.5 L MCV MCH MCHC RDW Plt Count MPV Reticulocyte % (Auto) Immature Gran % Neutrophils % Lymphocytes % Monocytes % Eosinophils % Basophils % Nucleated RBC % Absolute Neutrophils Absolute Lymphocytes Absolute Monocytes Absolute Eosinophils Absolute Basophils Sodium Potassium Chloride Carbon Dioxide Anion Gap BUN Creatinine Estimated GFR/1.73 m2 Glucose Calcium Iron 29 L TIBC 180 L Transferrin % Sat 16 Ferritin Total Bilirubin AST ALT Alkaline Phosphatase Total Protein Albumin Vitamin B12 Folate COVID-19 PCR Negative Nasopharyn COVID-19 PCR Not Applicable Ref Test Perform Site [facility] Patient ABO/Rh Antibody Screen Crossmatch 04/30/20 05/01/20 05/01/20 17:20 06:57 06:57 WBC 11.77 H D RBC 3.10 L Hgb 8.8 L Hct 27.0 L MCV 87.1 MCH 28.4 MCHC 32.6 RDW 13.1 Plt Count 242 MPV 10.9 Reticulocyte % (Auto) Immature Gran % 0.7 Neutrophils % 77.8 Lymphocytes % 12.2 Monocytes % 8.0 Eosinophils % 0.9 Basophils % 0.4 Nucleated RBC % 0 Absolute Neutrophils 9.16 H Absolute Lymphocytes 1.44 Absolute Monocytes 0.94 H Absolute Eosinophils 0.11 Absolute Basophils 0.05 Sodium 142 Potassium 4.6 Chloride 113 H Carbon Dioxide 17.0 L Anion Gap 12.0 H BUN 31 H Creatinine 1.93 H Estimated GFR/1.73 m2 26.31 Glucose 107 H Calcium 8.3 L Iron TIBC Transferrin % Sat Ferritin 456 H Total Bilirubin 0.6 AST 41 H ALT 19 Alkaline Phosphatase 106 Total Protein 6.3 L Albumin 2.3 L Vitamin B12 420 Folate > 20.0 H COVID-19 PCR Nasopharyn COVID-19 PCR Ref Test Perform Site Patient ABO/Rh A Positive Antibody Screen Negative Crossmatch See Detail 05/01/20 06:57 WBC RBC Hgb Hct MCV MCH MCHC RDW Plt Count MPV Reticulocyte % (Auto) 1.0 Immature Gran % Neutrophils % Lymphocytes % Monocytes % Eosinophils % Basophils % Nucleated RBC % Absolute Neutrophils Absolute Lymphocytes Absolute Monocytes Absolute Eosinophils Absolute Basophils Sodium Potassium Chloride Carbon Dioxide Anion Gap BUN Creatinine Estimated GFR/1.73 m2 Glucose Calcium Iron TIBC Transferrin % Sat Ferritin Total Bilirubin AST ALT Alkaline Phosphatase Total Protein Albumin Vitamin B12 Folate COVID-19 PCR Nasopharyn COVID-19 PCR Ref Test Perform Site Patient ABO/Rh Antibody Screen Crossmatch
--- NOTE | 2020-05-01 09:11 | PT.INIE ---
Date of service: 05/01/20 Time of Service: 09:11 PT Notes Visit Reasons: ACUTE IMPACTED LEFT FEMORAL FRACTURE Physical Therapy Inpatient Initial Evaluation Date: 05/01/2020 Referring Doctor: Brigido Neff MD PT Orders: PT CONSULT: Status post Ortho surgery. Status post left anterior ADAN for hip fracture Precautions: Fall. Standard. WBAT on left LE. Patient Profile/Admitting Diagnosis: Leanne is a 64-year-old female who presented to the ED on with chief complaints of left hip pain resulting from a fall due to her left leg giving out while using the bathroom. She is diagnosed with left femoral neck fracture and is status post left anterior total hip arthroplasty on postoperative day 1. PMHX: Medical History (Updated 04/30/20 @ 05:53 by Brigido Neff MD) Bacteremia due to other bacteria DKA (diabetic ketoacidoses) Social History/Home Situation: Lives with in good spirits are admitted with enter with bilateral rails. All mobility without any assistive ambulatory device prior to surgery. does grocery shopping and driving. Equipment Owned/DME: None Subjective: Reports being lightheaded upon standing up from edge of bed this morning. Grimaced, moaned, and groaned but reports only 1-2/10 pain stating that it is the lighteadedness that made her uncomfortable. reports no other falls in the past year. Objective: General Observation: Mepilex Ag over surgical incision. Mental Status: Alert and oriented x 4 Pain: 1-2/10 in the L hip Vital Signs: Being assessed for orthostatic hypotension by nursing as this PT was leaving at completion of initial evaluation. ROM: Right Upper Extremity: Shoulder Flexion WFL. Shoulder abduction WFL. Elbow flexion WFL. Wrist flexion WFL. Opening and closing of hand WFL. Left Upper Extremity: Shoulder Flexion WFL. Shoulder abduction WFL. Elbow flexion WFL. Wrist flexion WFL. Opening and closing of hand WFL. Right Lower Extremity: Hip flexion WFL. Hip abduction WFL. Knee flexion WFL. Ankle dorsiflexion WFL. Ankle plantarflexion WFL. Left Lower Extremity: Hip flexion WFL. Hip abduction WFL. Knee flexion WFL. Ankle dorsiflexion WFL. Ankle plantarflexion WFL. Strength: Right Upper Extremity: Shoulder flexors 5/5. Shoulder abductors 5/5. Elbow flexors 5/5. Elbow extensors 5/5. Hoop Maker Machine strong. Left Upper Extremity: Shoulder flexors 5/5. Shoulder abductors 5/5. Elbow flexors 5/5. Elbow extensors 5/5. Hoop Maker Machine strong. Right Lower Extremity: Hip flexors 5/5. Hip abductors 5/5. Knee flexors 5/5. Knee extensors 5/5. Ankle dorsiflexors 5/5. Ankle plantarflexors 5/5. Left Lower Extremity:Hip flexors 4/5. Hip abductors 4/5. Knee flexors 4/5. Knee extensors 4/5. Ankle dorsiflexors 5/5. Ankle plantarflexors 5/5. Sensation: Intact as to pain and pressure on bilateral lower extremities. Bed Mobility/Transfers: Supine to sit minimal assist to left Sit to stand contact-guard assist Stand to sit contact-guard assist Bed to chair contact-guard assist Chair to bed contact-guard assist Gait: 8 steps +1 sidestep using front wheel walker with WBAT left LE requiring contact-guard assist before patient complained of being lightheaded and requested down on chair. Patient will highly benefit from use of straight cane in order to increase mobility, increase stability, maximize activity tolerance, and reduce overall fall risk at discharge destination. Georgette decreased. 1?2/10 pain in the left hip. Balance: Static Sitting: Normal Dynamic Sitting: Normal Static Standing: Fair Dynamic Standing: Fair Special Tests: Mobility Limitations Standardized Measure [facility] AM-PAC 6 clicks Basic Mobility Inpatient Short Form: Raw Score: 18 CMS Score: 47% deficit Informed Consent/Education: Patient instructed in purpose of PT consult and plan of care. Assessment: [place] demonstrates functional mobility decline requiring the use wheeled walker for all mobility ADL,, lightheadedness, decreased activity tolerance, difficulty with walking, balance impairment, and increased risk for falls due to postoperative status. Without skilled services patient is at risk for further functional decline, decreased ability to go home and stay home safely, and increased burden of care. She may require home health PT services in order to facilitate a smooth transition to home. Patient presents with clinical signs and symptoms consistent with current/admitting diagnoses that have resulted to mobility limitations, gait instability, generalized weakness, and impairment of motor control as demonstrated by the following impairment level findings: 1. Decreased strength to left hip major muscle groups 2. Impaired 46455 moderate standing balance 3. Impaired activity tolerance Impairments are contributing to the following functional limitations: 1. Dependent bed mobility skills 2. Increased dependence with transfers 3. Inability to safely ambulate without assistive device and physical assistance 4. Increase completion time for mobility ADL performance 5. Increased fall risk 6. Inability to negotiate steps alone safely Patient is assessed as a complexity based on the following: History: 64-year-old female with impairment level findings, functional limitations, and past medical history as indicated above Examination: Demonstrable impairment in strength, balance, and mobility level with underlying impairments and functional limitations as documented above Presentation:Evolving Decision Makin moderate complexity Goals: Goals X1 week 1. Supine-Sit independent 2. Sit-Supine independent 3. Sit-Stand independent 4. Stand-Sit independent 5. Bed-Chair independent 6. Chair-Bed independent 7. Independent gait on level surface with use of least restrictive device for at least 300 feet without report of pain nor dyspnea 8. Independent stair negotiation while holding onto bilateral rails for at least 15 steps without report of pain nor dyspnea 9. Independent with home exercise program 10. Good static and dynamic standing balance/tolerance Plan of Care/Treatment Plan: 1-2x/day, 7 days/week x 1 week. Plan of care has been reviewed with the AEROTRIANGULATION SPECIALIST providing the service under Physical Therapy direction. Initiate Physical Therapy intervention for strengthening, bed mobility, transfers, gait, stairs, balance training, use of assistive device. DISCHARGE RECOMMENDATIONS: Patient will benefit from home health PT services in order to progress mobility level using least restrictive assistive ambulatory device, assess home safety, identify additional equipment needs, and establish a functional maintenance program that will increase ability of patient to remain at home. TREATMENT CODE/TIME: 87662 x 25 minutes, 39177 x 11 minutes beginning at 9:11 AM. Thank you for the opportunity to participate in the care of this patient. Sheridan Mendoza PT, DPT, CLT [facility] [place], [place]
[2020-05-01] MEDS: Docusate Sodium 100 MG CAP PO ×2 (09:50→20:03)
[2020-05-01] MEDS: oxyCODONE 5 MG TAB PO (09:51)
[2020-05-01] MEDS: Ferrous Sulfate 325 MG TAB PO ×2 (09:53→20:03)
[2020-05-01] MEDS: Polyethylene Glycol 3350 17 GM PACKET PO (09:54)
[2020-05-01 11:30] VITALS: BP 106/62; PULSE 91; RESP 18; TEMP 36.5; O2SAT 98
[2020-05-01] MEDS: Insulin Aspart 300 UNITS/3 ML PEN SC (11:37)
--- NOTE | 2020-05-01 12:10 | W.NUTRFU ---
Date of service: 05/01/20 Time of Service: 12:10 Nutritional Follow up NOTE: 64 year old female admitted with left hip fracture. PMH: CKD, HTN, DM with BMI indicating class 1 obesity. Most recent A1C (04/29/20) 6.9% indicating well controlled DM. Following diabetic diet with adequate intake. Not at nutritional risk at this time. Time Spent in Nutritional Counseling and Treatment: 0
--- NOTE | 2020-05-01 15:02 | CHAPLAIN ---
Leanne was up in a chair when I visited, but still having some trouble getting comfortable. She said she spoke with her recently and learned that the apartment below them has bugs, her has been given instructions about what to do with all their clothes and belongings while the building is sprayed. 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
--- NOTE | 2020-05-01 15:23 | CMPROGNOTE_ITS ---
Care Management Progress Note S/O: Leanne was sitting up in her chair when CM met with her. She shared pride at working well with PT this morning, explaining she walked all the way to the PT room and then participated in stair training. CM reviewed SNF referral; Leanne reported she was hopeful with continued mobility progression, she would be able to manage discharging to home. CM continues to follow. A: 64 year old female admitted to [facility] 04/29/20 for acute impacted left femoral fracture P: Leanne continues to be closely monitored and treated post surgically. Anticipate new orders for VNA PT/OT upon discharge, SNF referral faxed to [facility] in the event Leanne requires SNF upon discharge. FWW will be provided, if recommended. CM continues to follow.
--- NOTE | 2020-05-01 15:36 | PT.INTREAT ---
Date of service: 05/01/20 Time of Service: 13:00 PT Notes Visit Reasons: ACUTE IMPACTED LEFT FEMORAL FRACTURE Inpatient Physical Therapy Treatment Note [facility] Date: 05/01/2020 PRECAUTIONS: Fall, WBAT L LE SUBJECTIVE: Leanne is hesitant, but agreeable to participating in PT. She states that she gets dizzy when she stands, which is limiting her mobility. She states that she will not be able to walk to the bathroom located in her hospital room. She also reports that she did not eat much lunch. She states that she lives at home with her , who works away from home during the day. She reports that she spends most of the day sitting in her recliner chair while she is home alone, although is able to prepare lunch for herself. OBJECTIVE: PAIN: Patient states that her L LE is tingling but does not hurt. BED MOBILITY/TRANSFERS Sit-stand: CGA Stand-sit: CGA GAIT Assistive Device: FWW Weight bearing: WBAT L LE Assist: CGA Distance: 5' x2 Deviation: C/o dizziness, refused further gait training I can't do it. THEREX: Patient was instructed in several LE strengthening exercises, in a seated position, as per flow sheet. ASSESSMENT: Patient demonstrates limited mobility due to c/o dizziness with standing and ambulation, tolerating only 5' x2 with FWW and CGA support. Patient does not demonstrate safety or mobility-level appropriate for return to home where she will be home alone during the day. She would benefit from continued gait and transfer training and global strengthening for improved mobility. PLAN: Continue with gait and transfer training as well as global strengthening to improve mobility and safety. TREATMENT CODE/TIME: 30 minutes; 18400, [id number]
[2020-05-01 15:56] VITALS: BP 115/61; PULSE 88; RESP 17; TEMP 37; O2SAT 98
[2020-05-01] MEDS: Normal Saline Flush 10 ML SYR IVP (18:35)
[2020-05-01] MEDS: Acetaminophen 325 MG TAB 650 MG PO (20:20)
[2020-05-01 20:23] VITALS: BP 141/66; PULSE 94; RESP 18; TEMP 36.9; O2SAT 96
[2020-05-01] MEDS: Normal Saline 1,000 ML 100 ML IV (22:36)
[2020-05-01 22:44] VITALS: BP 132/72; PULSE 89; RESP 18; TEMP 37; O2SAT 97
[2020-05-02 05:20] VITALS: BP 148/79; PULSE 89; RESP 16; TEMP 36.8; O2SAT 97
[2020-05-02] MEDS: PIPERACILLIN/TAZO 2.25 GM in Normal Saline 50 ML IVPB (05:46)
[2020-05-02 07:20] VITALS: BP 146/79; PULSE 86; RESP 17; TEMP 37.3; O2SAT 97
[2020-05-02 08:20] LABS: Abs Immature Grans 0.03 10^3/uL (0.0-0.06); Absolute Basophil Count 0.04 10^3/uL (0.0-0.2); Absolute Eosinophil Count 0.16 10^3/uL (0.0-0.7); Absolute Lymphocyte Count 1.28 10^3/uL (1.2-3.4); Absolute Monocyte Count 0.78 10^3/uL (0.1-0.8); Absolute Neutrophil Count 8.37 10^3/uL (1.2-6.7); Basophils % 0.4; Eosinophils % 1.5; HCT 26.1 % (36.0-46.0); HGB 8.6 g/dL (11.2-15.7); Immature Grans % 0.3; MCH 28.7 pg (27.0-33.0); MPV 10.4 fL (8.0-11.0); Monocytes % 7.3; Neutrophils % 78.5; Nucleated RBC 0 %; Platelet Count 249 10^3/uL (130-400); RDW 12.9 % (11.7-14.6); WBC 10.66 10^3/uL (4.4-10.8)
[2020-05-02 08:30] LABS: Anion Gap 12.2 mmol/L (3-11); BUN 21 mg/dL (7-18); CO2 16.8 mmol/L (21.0-32.0); CREATININE 1.54 mg/dL (0.55-1.02); Calcium 8.5 mg/dL (8.5-10.1); Chloride 108 mmol/L (98-107); Estimated GFR 34.13 (mL/min/1.73m2); Glucose 97 mg/dL (74-106); Magnesium 1.5 mg/dL (1.8-2.4); Potassium 4.4 mmol/L (3.5-5.1); Sodium 137 mmol/L (136-145)
[2020-05-02] MEDS: Amoxicillin 875/Clav. 125 TAB PO (08:36)
[2020-05-02] MEDS: Ferrous Sulfate 325 MG TAB PO (08:36)
[2020-05-02] MEDS: Enoxaparin 30 MG/0.3 ML SYR SC (08:36)
--- NOTE | 2020-05-02 08:49 | W.PM.PROGNOT ---
Date of Service Date of service: 05/02/20 Time of Service: 08:50 Assessment and Plan Assessment and plan (1) Left displaced femoral neck fracture: Status: Acute Assessment and plan: Leanne is a 64-year-old status post left hip replacement for displaced femoral neck fracture. She is doing well. She did have some loose stools but she has no concerns at all today for C. difficile. Recommend discontinue the contact precautions. MORENO Carbone. Continue to work with PT. Hemoglobin is stable. At this point, I think she is safe to discharge home once cleared by physical therapy with home health assistance. I would recommend aspirin on discharge for DVT prophylaxis. Discharge instructions were inserted into the discharge summary. Subjective Subjective Interval history since last seen: Leanne reports be doing better today. She has had only minimal pain about the left hip. She has had no more bowel movements today. She denies fevers or chills. She was able to get up with physical therapy and walk within the room with minimal pain. She denies numbness or tingling. Exam Narrative Exam Narrative: Sitting up in the bed. No acute distress. Alert and oriented x3. Evaluation left hip shows a clean dry and intact dressing. There is some mild swelling of the left thigh. No ecchymosis. There is tenderness to palpation about the left thigh and leg. She tolerates internal and external rotation of the hip without pain. Intact ankle dorsiflexion, ankle plantarflexion, EHL, FHL. Sensation intact light touch of the deep and superficial peroneal nerves and tibial nerve. Objective Last Vital Signs Temp 37.3 C 05/02/20 07:20 Pulse 86 05/02/20 07:20 Resp 17 05/02/20 07:20 BP 146/79 H 05/02/20 07:20 Pulse Ox 97 05/02/20 07:20 Laboratory Results - last 24 hr 05/02/20 05/02/20 08:10 08:10 WBC 10.66 RBC 3.00 L Hgb 8.6 L Hct 26.1 L MCV 87.0 MCH 28.7 MCHC 33.0 RDW 12.9 Plt Count 249 MPV 10.4 Immature Gran % 0.3 Neutrophils % 78.5 Lymphocytes % 12.0 Monocytes % 7.3 Eosinophils % 1.5 Basophils % 0.4 Nucleated RBC % 0 Absolute Neutrophils 8.37 H Absolute Lymphocytes 1.28 Absolute Monocytes 0.78 Absolute Eosinophils 0.16 Absolute Basophils 0.04 Sodium 137 Potassium 4.4 Chloride 108 H Carbon Dioxide 16.8 L Anion Gap 12.2 H BUN 21 H D Creatinine 1.54 H Estimated GFR/1.73 m2 34.13 Glucose 97 Calcium 8.5 Magnesium 1.5 L
[2020-05-02] MEDS: Acetaminophen 325 MG TAB 650 MG PO (08:54)
--- NOTE | 2020-05-02 09:24 | PT.INTREAT ---
Date of service: 05/02/20 Time of Service: 09:24 PT Notes Visit Reasons: ACUTE IMPACTED LEFT FEMORAL FRACTURE Inpatient Physical Therapy Treatment Note [facility] Date: 05/02/2020 PRECAUTIONS: Fall, WBAT L LE. SUBJECTIVE: Leanne feels a lot better today and ate half of her breakfast today. She did not feel any dizziness but did report fatigue frotoday's activities. OBJECTIVE: PAIN: 1-2/10 in the L hip BED MOBILITY/TRANSFERS Sit-stand: SBA Stand-sit: SBA GAIT Assistive Device: FWW Weight bearing: WBAT L LE Assist: SBA Distance: 15 feet + 10 feet +20 feet + 10 feet Deviation: No complaints of dizziness but did express getting tired from today's activity THEREX: Seated level exercises to maintain range in hip, knee, and ankle joints on B sides have been done by patient today with guidance for correct tehnique and safety by PT. ASSESSMENT: Leanne demonstrates much improved independence with mobility performance this morning using her FWW. She has much more mental clarity to follow instructions and express how she feels compared to yesterday. She will benefit from PT services to maximize transfer and ambulation task performance at home as her works and is not at home during the day to help her. PLAN: Continue with PT POC as initially established. TREATMENT CODE/TIME: 96822 x 25 minutes, 53652 x 17 minutes beginning at 9:24 AM.
[2020-05-02] MEDS: MAGNESIUM SULFATE 4 GM/100 ML BAG IVPB (10:09)
[2020-05-02] MEDS: Normal Saline 1,000 ML 100 ML IV (10:09)
--- NOTE | 2020-05-02 11:56 | CMPROGNOTE_ITS ---
Care Management Progress Note S/O: Leanne was sitting up in her chair when CM met with her. She shared pride at working well with PT this morning, explaining she walked all the way to the PT room and then participated in stair training. CM reviewed SNF referral; Leanne reported she was hopeful with continued mobility progression, she would be able to manage discharging to home. CM continues to follow. A: 64 year old female admitted to [facility] 04/29/20 for acute impacted left femoral fracture P: Leanne continues to be closely monitored and treated post surgically. Anticipate new orders for VNA PT/OT upon discharge, SNF referral faxed to [facility] in the event Leanne requires SNF upon discharge. FWW will be provided, if recommended. CM continues to follow.
--- NOTE | 2020-05-02 12:35 | W.PM.DS.N ---
Date of service: 05/02/20 Time of Service: 12:36 DS: Diagnosis Discharge Diagnosis (1) Left displaced femoral neck fracture: Start date: 05/02/20 Start time: 12:36 Status: Acute Asessment and Plan: Sustained from fall in bathroom, prior to admission. Left femoral neck repair by Dr. Neff on 04/30. Doing well today. At first she was slow to be mobile, however today she was able to walk with PT and complete steps, for this reason she is being discharged home with PT/OT and HH services. She feels well enough to be discharged home. She does complain of tingling to bilateral feet. 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 She was treated with zosyn, will switch to oral augmentin for 3 days. (3) Neuropathy: Start date: 05/02/20 Start time: 14:22 Status: Acute Asessment and Plan: Follow up with PCP for further management above case discussed with Dr. Muñoz who is in agreement. Discharge Plan Disposition Patient Disposition: HOME W/HOME HEALTH SERVICE Condition: Stable Discharge Details Reason For Visit: ACUTE IMPACTED LEFT FEMORAL FRACTURE Admit Date/Time: 04/29/20 12:15 Admit Provider: Terrie Muñoz Attending Provider: Terrie Muñoz Primary Care Provider: [facility] Hospital Course: 64 y.o female with PMH of CKD, T2DM who was admitted to [facility] m/s after presenting to ED for mechanical fall. She was in the bathroom around 1 am when she fell. assisted her back to bedroom. She reported to ED in the am and was found to have impacted subcapital fracture of the left femoral neck. Ortho was consulted and she was admitted for further management. Repair of the fracture was done 04/[address] Neff. She has been working with PT/oT and doing well. She is being discharged home with HH services PT/OT. On admission she was found to have UTI, she was started on zosyn. Urine culture grew citrobacter farmeri resistant to cefazolin. She was switched to oral augmentin and will continue for three days. She denies CP, SOB, N/V/D. Home Meds and New Rx's Prescriptions: New amoxicillin-pot clavulanate 875-125 mg Tablet 1 tab PO BID Qty: 5 RF: 0 oxycodone 5 mg Tablet 5 mg PO Q4H PRN PRNQty: 20 RF: 0 polyethylene glycol 3350 17 gram Powder In Packet 17 g PO DAILY Qty: 14 RF: 0 Continued B complex-vitamin C-folic acid 1 mg tablet 1 tab PO DAILY RF: 0 Lantus Solostar U-100 Insulin 100 unit/mL (3 mL) insulin pen 20 unit SC DAILY AM RF: 0 No Action (DME) pen needle, diabetic [BD Ultra-Fine Mini Pen Needle] 31 gauge x 3/16 needle See Rx Instructions .ROUTE .MEDSUPPLY Qty: 30 RF: 0 (DME) Mepilex Border 4 X 4 bandage See Rx Instructions .ROUTE .MEDSUPPLY Qty: 1 RF: 0 (DME) blood sugar diagnostic Strip See Rx Instructions .ROUTE .MEDSUPPLY Qty: 100 RF: 3 Discharge Instructions Additional Instructions: Dr. Neff's Total Hip Discharge Instructions Activity: The most important activity is to walk. You should try to take short walks a few times a day. You have no restrictions on movement or positioning, but do not try to force what you do. You will find some stiffness and weakness with hip flexion (lifting your knee). Do not try to strengthen this too early, continue to practice walking and stairs and this will come. - Outpatient physical therapy can be helpful to help return you to a normal gait and improve your flexibility and strength. This can start around 2 weeks. For most patients, it?s not necessary. Usually this is determined at the time of discharge or at the first post-operative visit. - You should wear the RODRÍGUEZ hose on both legs for 2 weeks. You may remove those at night. These prevent blood pooling and swelling. Dressing: Keep the surgical dressing in place for at least one week, although it may stay in place untill follow-up. It may get wet after 3 days but avoid soaking the dressing. If it gets wet, just lightly pat dry. Most people prefer to cover the dressing with some ClingWrap, Saran Wrap, to keep it dry. After the first week it may be removed if desired and then replaced with light gauze and tape or nothing. It is important to always keep some gauze or the dressing between skin folds, especially when you are sitting, so the incision is not folded over on itself at the belly fold. Medications: - You should take Tylenol (1000mg) every 8 hours for baseline pain control. - You may apply ice to the thigh and the wound. Sometimes heat is helpful on the muscles of the thigh. - You will be taking [Aspirin 81mg twice a day] for DVT prevention unless instructed otherwise. - If you have constipation you should take Colace or Miralax (both llfy-jdh-biidoms). It takes most people 3-4 days to have a bowel movement. Follow-up: 2 weeks. If you have any acute concerns or questions, please do not hesitate to contact the office at [phone]. You may contact Dr. Neff with any questions after hours through the hospital at [phone] or on his cell phone at [phone]. Activity:: Activity as Tolerated Equipment/Supplies:: Walker Diet:: Carb Counting Discharge Orders Discharge Orders: Discharge Order (Routine); Ordered 05/02/20 Ordered By: Judy Lazo DS: Summary Status at Discharge Functional status at discharge: uses cane/walker Overall status at discharge: patient is progressing back to baseline Mental Status: mental status grossly normal Speech and Movement: speech and movement normal Mood: congruent mood Affect: normal affect Exam Const General: cooperative, disheveled, frail appearing and ill appearing (older appearing than stated age) chronically Nutritional Appearance: overweight Orientation: alert, awake and oriented x3 HENVT Head: normal to inspection, normocephalic and atraumatic Mouth: moist mucous membranes abnormal (slightly dry) Resp Effort & Inspection: normal respiratory effort Auscultation: clear to auscultation bilaterally Cardio Rate: regular rate Rhythm: regular rhythm GI Inspection: normal to inspection and obesity Palpation: soft Auscultation: normal bowel sounds Skin Lesions: lesion noted (right lower extremity, see nursing documentation) and other (surgical dressing clean dry and intact. ) Rashes: no rashes Neuro General: patient alert, patient awake, patient oriented x3 and no focal motor deficits Extrem General: edema (trace, wearing teds and SCD's) Laterality: bilateral Psych Mental Status: mental status grossly normal Speech and Movement: speech and movement normal Mood: congruent mood Affect: normal affect DS: Data Vitals/I&O Vitals and I&O: Vital Signs Temperature 37.3 C 05/02/20 07:20 Temperature Source Tympanic 05/02/20 07:20 Pulse 86 05/02/20 07:20 Pulse Rhythm Regular 05/02/20 02:23 Respiratory Rate 17 05/02/20 07:20 Respiratory Effort Non-Labored 05/02/20 02:23 Respiratory Depth Normal 05/02/20 02:23 Respiratory Pattern Normal 05/02/20 02:23 Blood Pressure 146/79 H 05/02/20 07:20 Blood Pressure Position Supine 04/29/20 09:15 Pulse Oximetry 97 05/02/20 07:20 Respiratory End-tidal CO2 24 04/30/20 17:55 Oxygen Delivery Method Room Air 05/02/20 07:20 Oxygen Flow Rate 0 05/02/20 07:20 Pain Level 2 05/02/20 08:54 Comment 04/30/20 19:11 Intake & Output 05/01/20 05/02/20 05/02/20 23:59 11:59 23:59 Intake Total 900 / 4000.026 5266 / 1050 Output Total 1200 / 1800 1050 / 1050 Balance -300 / -361.667 0 / 0 Weight 72.4 kg Intake: IV 900 / 3891.809 2453 / 1050 Output: Urine 1200 / 1800 1050 / 1050 Other: Urine Color Yellow Pale Yellow Urine Appearance Clear Clear Stool Size Smear Stool Characteristics Soft Voiding Methods Toilet Data Completed and Pending Completed studies during hospitalization [Text1]: Exam(s) a RAD:XR hip LT in OR EXAM: XR HIP LT IN OR CLINICAL HISTORY: Left displaced femoral neck fracture TECHNIQUE: 2D and realtime digital imaging was performed. CONTRAST MATERIAL: Refer to procedure report. COMPARISON: CR XR HIP LT COMPLETE AP PELVIS from 04/29/2020 CR XR FEMUR LT from 04/29/2020 FINDINGS: Fluoroscopy was provided for Dr. Neff during the performance of a left total hip replacement. Please refer to the procedure report for complete details. Fluoro time: 47.3 seconds IMPRESSI Exam(s) a RAD:XR portable chest AP EXAM: XR PORTABLE CHEST AP CLINICAL HISTORY: pre op TECHNIQUE: 2D digital imaging was performed. COMPARISON: No exams were available for comparison FINDINGS: MEDIASTINUM: Normal. HEART: Normal. PULMONARY VASCULATURE: Normal. LUNGS: Clear. PLEURAL SPACE: No pleural effusion or pneumothorax. BONE:Within normal limits for the patient's age. OTHER FINDINGS:Normal. IMPRESSION: No acute pulmonary findings. Exam(s) a RAD:XR hip LT complete & AP pelvis EXAM: XR HIP LT COMPLETE AP PELVIS CLINICAL HISTORY: fall/pain. TECHNIQUE: 2D digital imaging was performed. COMPARISON: No exams were available for comparison FINDINGS: BONES: There is a subcapital fracture of the left femur. There is impaction and proximal migration of the distal fracture. No bony destructive lesion is seen. JOINTS: No dislocation present. Degenerative changes are seen in the hips, lower lumbar spine and sacroiliac joints. SOFT TISSUE: Atherosclerosis. IMPRESSION: Impacted subcapital fracture of the left femoral neck. Labs on day of discharge: Labs from last 24 hours 05/02/20 05/02/20 08:10 08:10 WBC 10.66 RBC 3.00 L Hgb 8.6 L Hct 26.1 L MCV 87.0 MCH 28.7 MCHC 33.0 RDW 12.9 Plt Count 249 MPV 10.4 Immature Gran % 0.3 Neutrophils % 78.5 Lymphocytes % 12.0 Monocytes % 7.3 Eosinophils % 1.5 Basophils % 0.4 Nucleated RBC % 0 Absolute Neutrophils 8.37 H Absolute Lymphocytes 1.28 Absolute Monocytes 0.78 Absolute Eosinophils 0.16 Absolute Basophils 0.04 Sodium 137 Potassium 4.4 Chloride 108 H Carbon Dioxide 16.8 L Anion Gap 12.2 H BUN 21 H D Creatinine 1.54 H Estimated GFR/1.73 m2 34.13 Glucose 97 Calcium 8.5 Magnesium 1.5 L PFS Medical History Bacteremia due to other bacteria DKA (diabetic ketoacidoses) Family History Father Diabetes Brother Diabetes Social History Smoking/Tobacco Use Status: Never Smoking risk assessment performed?: Yes Alcohol Intake: never Drug use: Never Substance use type: does not use Adopted: No Caregiver/Support person: No Foster care: No Household members: spouse Housing: apartment Do you need help understanding health information?: Rarely current occupation: Unemployed Do you think of yourself as: straight/heterosexual Current gender identity: female Do you feel safe at home: Yes Do you feel safe in your relationship?: Yes Additional Social history: Lives with Ch[place] on [place]. threatening litigation about no entry to ED with (visitor policy) 04/29/20
[2020-05-02] MEDS: Insulin Aspart 300 UNITS/3 ML PEN SC (12:42)
[2020-05-02] MEDS: oxyCODONE 5 MG TAB PO (14:09)
--- NOTE | 2020-05-02 14:34 | PDOC.HHF2F ---
Home Health Certification Home Health Certification: 1. Encounter Date and Reason I certify that [facility] was seen by Judy Lazo on 05/02/20 and that I had a [id number] encounter with this patient that meets the physician face to face encounter requirements. 2. Clinical Findings Supporting Skilled Need and Homebound Status I certify that home health services are medically necessary, include either intermittent penitentiary and/or physical/speech therapy, and that this patient is homebound in that absences from the home require considerable and taxing effort and are infrequent or of short duration, or are attributable to the need to receive medical care. [X] (a) Attached documentation from encounter provides clinical findings supporting skilled need and homebound status (including what assistance patient requires to leave the home). The encounter with the patient was in whole, or in part, for the following medical condition, which is the primary reason for home health care: ACUTE IMPACTED LEFT FEMORAL FRACTURE Physical Therapy: Patient would benefit from PT/OT for further strength, gait and balance following hip fracture repair Homebound: Unable to leave home without assistance 3. Certification and Authentication I certify that I composed the above information based on my clinical judgement relating to this patient's medical condition and, if applicable, clinical findings communicated to me by the NPP or inpatient physician who performed the Home Health Referral. All further orders will be obtained through ___Marcelle (Community Based Physician - PCP)
--- NOTE | 2020-05-02 15:38 | PT.INTREAT ---
PT Notes Visit Reasons: ACUTE IMPACTED LEFT FEMORAL FRACTURE Inpatient Physical Therapy Treatment Note [facility] Date: 05/02/2020 PRECAUTIONS: Fall, WBAT L LE SUBJECTIVE: Leanne states that she does not want to stay at the hospital, but she is not sure about ging home because her apartment is to be fogged due to bugs. OBJECTIVE: PAIN: Patient states my hip doesn't hurt, it's just stiff. BED MOBILITY/TRANSFERS Sit-stand: SBA Stand-sit: SBA Bed-chair: SBA Chair-bed: SBA GAIT Assistive Device: FWW Weight bearing: WBAT L LE Assist: SBA Distance: 40' + 15' + 50' Deviation: Step-to pattern, stiffness in L hip STAIRS: Up/down 3x4 and 2x6 using B rails and a step-to pattern with SBA ASSESSMENT: Patient demonstrates increased gait tolerance with FWW support and SBA, although requires seated rest x2. She would benefit from continued gait and transfer training, as well as global strengthening for improved mobility. PLAN: Continue with global strengthening and gait and transfer training via Home Health PT. TREATMENT CODE/TIME: 35 minutes; [id number] x2
--- NOTE | 2020-05-02 15:45 | CMDISCH_ITS ---
LACE Index Scoring Tool - Questions: Length of Stay (in days): 3 Acuity (Admit via E.D.?): Yes Comorbidities: Diabetes w/o Complication E.D. Visits: 2 - Answers: Total Score: 9 Risk of Readmission: Low Risk Care Management Discharge Reason for Hospitalization: Fracture femur Discharge Plan: Leanne will return home when ready per MD. She will have new [facility] PT/OT orders through [facility] upon discharge. She will follow up with her PCP, surgical services and plan of care as prescribed. She will transport via private vehicle with her . Patient/Family Education Needs: Review discharge instructions, discuss Ask Me Three. Services Needed at Discharge: Home Health Care Services (PT, OT)
--- NOTE | 2020-05-02 16:45 | INDS_ITS ---
Date of service: 05/02/20 Time of Service: 16:45 PT Notes Visit Reasons: ACUTE IMPACTED LEFT FEMORAL FRACTURE Physical Therapy Inpatient Discharge Summary Date: 05/02/2020 Dates of Service: 05/01/2020 through This is a clinical summary of care provided on the duration of dates listed above. No charge was made in the completion of this documentation. Referring Doctor: Brigido Neff MD PT Orders: PT CONSULT: Status post Ortho surgery. Status post left anterior ADAN for hip fracture Precautions: Fall. Standard. WBAT on left LE. Patient Profile/Admitting Diagnosis: Leanne is a 64-year-old female who presented to the ED on with chief complaints of left hip pain resulting from a fall due to her left leg giving out while using the bathroom. She is diagnosed with left femoral neck fracture and is status post left anterior total hip arthroplasty on postoperative day 1. PMHX: Medical History (Updated 04/30/20 @ 05:53 by Brigido Neff MD) Bacteremia due to other bacteria DKA (diabetic ketoacidoses) Social History/Home Situation: Lives with in good spirits are admitted with enter with bilateral rails. All mobility without any assistive ambulatory device prior to surgery. does grocery shopping and driving. Equipment Owned/DME: None Subjective: NT. See most recent PRINTING SUPERVISOR notes. Objective: General Observation: NT. See most recent PRINTING SUPERVISOR notes. Mental Status: NT. See most recent PRINTING SUPERVISOR notes. Pain: NT. See most recent PRINTING SUPERVISOR notes. Vital Signs: NT. See most recent PRINTING SUPERVISOR notes. ROM: Right Upper Extremity: Shoulder Flexion WFL. Shoulder abduction WFL. Elbow flexion WFL. Wrist flexion WFL. Opening and closing of hand WFL. Left Upper Extremity: Shoulder Flexion WFL. Shoulder abduction WFL. Elbow flexion WFL. Wrist flexion WFL. Opening and closing of hand WFL. Right Lower Extremity: Hip flexion WFL. Hip abduction WFL. Knee flexion WFL. Ankle dorsiflexion WFL. Ankle plantarflexion WFL. Left Lower Extremity: Hip flexion WFL. Hip abduction WFL. Knee flexion WFL. Ankle dorsiflexion WFL. Ankle plantarflexion WFL. Strength: Right Upper Extremity: Shoulder flexors 5/5. Shoulder abductors 5/5. Elbow flexors 5/5. Elbow extensors 5/5. Transportation Aide strong. Left Upper Extremity: Shoulder flexors 5/5. Shoulder abductors 5/5. Elbow flexors 5/5. Elbow extensors 5/5. Transportation Aide strong. Right Lower Extremity: Hip flexors 5/5. Hip abductors 5/5. Knee flexors 5/5. Knee extensors 5/5. Ankle dorsiflexors 5/5. Ankle plantarflexors 5/5. Left Lower Extremity:Hip flexors 4/5. Hip abductors 4/5. Knee flexors 4/5. Knee extensors 4/5. Ankle dorsiflexors 5/5. Ankle plantarflexors 5/5. Sensation: Intact as to pain and pressure on bilateral lower extremities. Bed Mobility/Transfers: Sit to stand SBA Stand to sit SBA Bed to chair SBA Chair to bed SBA Gait: 40 feet + 15 feet + 50 feet with step through now with increasing arleen. Continues to report fatigue and mild lightheadedness during the afternoon session with PT. UP and down 6 x 4-inch steps and 4 x 6-inch steps with step-to gait pattern with SBA. Balance: Static Sitting: Normal Dynamic Sitting: Normal Static Standing: Fair Dynamic Standing: Fair Assessment: Leanne demonstrates functional mobility decline requiring the use wheeled walker for all mobility ADL,, lightheadedness, decreased activity tolerance, difficulty with walking, balance impairment, and increased risk for falls due to postoperative status. She has achieved stand by assist level with mobility performance and will continue to benefit from PT/OT services to achieve highest mobility level. Patient presents with clinical signs and symptoms consistent with current/admitting diagnoses that have resulted to mobility limitations, gait instability, generalized weakness, and impairment of motor control as demonstrated by the following impairment level findings: 1. Decreased strength to left hip major muscle groups 2. Impaired standing balance 3. Impaired activity tolerance Impairments are continuing to contributing to the following functional limitat ions: 1. Inability to safely ambulate without assistive device 2. Increase completion time for mobility ADL performance 3. Increased fall risk 4. Inability to negotiate steps alone safely Goals: Goals X1 week 1. Supine-Sit independent NOT MET 2. Sit-Supine independent NOT MET 3. Sit-Stand independent NOT MET 4. Stand-Sit independent NOT MET 5. Bed-Chair independent NOT MET 6. Chair-Bed independent NOT MET 7. Independent gait on level surface with use of least restrictive device for at least 300 feet without report of pain nor dyspnea NOT MET 8. Independent stair negotiation while holding onto bilateral rails for at least 15 steps without report of pain nor dyspnea NOT MET 9. Independent with home exercise program NOT MET 10. Good static and dynamic standing balance/tolerance NOT MET DISCHARGE RECOMMENDATIONS: Patient will benefit from home health PT services in order to progress mobility level using least restrictive assistive ambulatory device, assess home safety, identify additional equipment needs, and establish a functional maintenance program that will increase ability of patient to remain at home. TREATMENT CODE/TIME: NC. Thank you for the opportunity to participate in the care of this patient. Sheridan Mendoza PT, DPT, CLT [facility] [place], [place]
== END 2020-05-02 16:30 | disposition home health service (06) | DRG 522 ==
LOC: ER 12:42 → MS 13:26
PROVIDERS: Nurse Anesthetist, Certified Registered; Nurse Practitioner Acute Care; Nurse Practitioner Family; Student in an Organized Health Care Education/Training Program; Admitting Provider Internal Medicine; Emergency Provider Physician Assistant; PCP Student in an Organized Health Care Education/Training Program; Visit Provider Internal Medicine
PROC: 0SRB04A Replacement of Left Hip Joint with Ceramic on Polyethylene Synthetic Substitute, Uncemented, Open Approach (ICD-10-PCS; CPT 27130; principal; 2020-04-30 12:45)
DX: S72.012A Unspecified intracapsular fracture of left femur, initial encounter for closed fracture (principal); N39.0 Urinary tract infection, site not specified; D62 Acute posthemorrhagic anemia; W18.39XA Other fall on same level, initial encounter; I12.9 Hypertensive chronic kidney disease with stage 1 through stage 4 chronic kidney disease, or unspecified chronic kidney disease; N18.9 Chronic kidney disease, unspecified; E11.22 Type 2 diabetes mellitus with diabetic chronic kidney disease; Z79.4 Long term (current) use of insulin; B96.89 Other specified bacterial agents as the cause of diseases classified elsewhere; E11.40 Type 2 diabetes mellitus with diabetic neuropathy, unspecified
CPT/HCPCS: 27130; 20985; 36415; 51701; 73552; 80048; 80053; 82550; 86850; 86900; 86901; 86920; 87077; 96361; 96374; 97110; 97162; 97530; 99223; 99231; 99233; 99239; 99253; 99285; NC; U0003; 71045; 73501; 73502; 81003; 81015; 82607; 82728; 82746; 83036; 83540; 83550; 83735; 84443; 85014; 85018; 85025; 85045; 85610; 87086; 87186; 93005; 93010; 93306; J0690; J1650; J1885; J2001; J2270; J2405; J2543; J3010; J3475; P9016

== ENCOUNTER 2020-05-30 11:56 | Outpatient (CLI) | payer OTHER, SELFPAY ==
--- NOTE | 2020-05-30 10:45 | DI.RAD_ITS ---
EXAM: XR HIP LT COMPLETE AP PELVIS CLINICAL HISTORY: 1ST POST OP. TECHNIQUE: 2D digital imaging was performed. COMPARISON: CR XR HIP LT COMPLETE AP PELVIS from 04/29/2020 XR HIP LT IN OR from 04/30/2020 FINDINGS: BONES: There are stable post operative changes present. No fracture or dislocation. JOINTS: The joint spaces are well maintained. No joint effusion is present. SOFT TISSUE: Normal. IMPRESSION: Stable postoperative changes. DATA REPOSITORY: RADIATION DOSE DELIVERED:
== END 2020-05-30 12:16 ==
PROVIDERS: PCP Student in an Organized Health Care Education/Training Program; Referring Provider Student in an Organized Health Care Education/Training Program; Visit Provider Student in an Organized Health Care Education/Training Program
DX: Z96.642 Presence of left artificial hip joint (principal)
CPT/HCPCS: 73502

== ENCOUNTER 2020-07-18 01:18 | Outpatient (CLI) | payer OTHER, SELFPAY ==
[2020-07-18 13:36] LABS: HGB 11.8 g/dL (11.2-15.7); MCH 27.8 pg (27.0-33.0); MCHC 31.9 % (32.0-36.0); MCV 87.3 fL (80-95); Platelet Count 354 10^3/uL (130-400); RBC 4.24 10^6/uL (3.93-5.22); RDW 13.7 % (11.7-14.6); RDW-SD 43.8 fL; WBC 7.55 10^3/uL (4.4-10.8)
[2020-07-18 13:43] LABS: Hemoglobin A1C 6.1 % (<5.7)
[2020-07-18 14:56] LABS: ALT 63 U/L (14-59); AST 28 U/L (15-37); Albumin 3.5 g/dL (3.4-5.0); Alkaline Phosphatase 130 U/L (46-116); Anion Gap 10.1 mmol/L (3-11); BUN 47 mg/dL (7-18); Bilirubin, Total 0.2 mg/dL (0.2-1.0); CO2 24.9 mmol/L (21.0-32.0); CREATININE 1.3 mg/dL (0.55-1.02); Calcium 9.3 mg/dL (8.5-10.1); Chloride 106 mmol/L (98-107); Glucose 133 mg/dL (74-106); Potassium 4.9 mmol/L (3.5-5.1); Sodium 141 mmol/L (136-145); Vitamin B12 484 pg/mL (193-986)
== END 2020-07-18 01:19 | disposition home or self-care (01) ==
LOC: LBO 01:19
PROVIDERS: Nurse Practitioner Adult Health; PCP Student in an Organized Health Care Education/Training Program; Visit Provider Student in an Organized Health Care Education/Training Program
DX: R55 Syncope and collapse (principal); E11.9 Type 2 diabetes mellitus without complications; R20.2 Paresthesia of skin
CPT/HCPCS: 36415; 80053; 85027; 82607; 83036; 83735

== ENCOUNTER 2020-10-09 02:12 | Outpatient (CLI) | payer OTHER, SELFPAY ==
[2020-10-09 10:48] LABS: Abs Immature Grans 0.01 10^3/uL (0.0-0.06); Absolute Basophil Count 0.05 10^3/uL (0.0-0.2); Absolute Eosinophil Count 0.13 10^3/uL (0.0-0.7); Absolute Lymphocyte Count 1.77 10^3/uL (1.2-3.4); Absolute Monocyte Count 0.47 10^3/uL (0.1-0.8); Absolute Neutrophil Count 4.92 10^3/uL (1.2-6.7); Basophils % 0.7; Eosinophils % 1.8; HCT 33.8 % (36.0-46.0); HGB 10.8 g/dL (11.2-15.7); Immature Grans % 0.1; Lymphocytes % 24.1; MCV 87.6 fL (80-95); MPV 10.8 fL (8.0-11.0); Monocytes % 6.4; Neutrophils % 66.9; Nucleated RBC 0 %; Platelet Count 326 10^3/uL (130-400); RBC 3.86 10^6/uL (3.93-5.22); RDW 12.7 % (11.7-14.6); RDW-SD 40.5 fL; WBC 7.35 10^3/uL (4.4-10.8)
[2020-10-09 10:56] LABS: Albumin 3.3 g/dL (3.4-5.0); Anion Gap 9.3 mmol/L (3-11); BUN 36 mg/dL (7-18); CO2 25.7 mmol/L (21.0-32.0); CREATININE 1.5 mg/dL (0.55-1.02); Calcium 9.4 mg/dL (8.5-10.1); Chloride 107 mmol/L (98-107); Estimated GFR 35.07 (mL/min/1.73m2); Glucose 140 mg/dL (74-106); PHOSPHORUS 3.7 mg/dL (2.6-4.7); Potassium 5.1 mmol/L (3.5-5.1); Sodium 142 mmol/L (136-145)
[2020-10-10 13:23] LABS: Parathyroid Hormone,Intact 42 pg/mL (19-88)
== END 2020-10-09 02:13 | disposition home or self-care (01) ==
LOC: LBO 02:12
PROVIDERS: PCP Student in an Organized Health Care Education/Training Program; Visit Provider Internal Medicine Nephrology
DX: N18.30 Chronic kidney disease, stage 3 unspecified (principal); E11.22 Type 2 diabetes mellitus with diabetic chronic kidney disease
CPT/HCPCS: 36415; 80048; 82040; 83970; 84100; 85025

== ENCOUNTER 2020-10-31 13:14 | Outpatient (REF) | payer OTHER, SELFPAY ==
--- NOTE | 2020-10-31 12:15 | SKI_PTH ---
PATIENT: Leanne Grace LOC: [facility] U#:[id number] AGE/SX: 65/F ROOM: RE10/31/[address]: PEÑA Chang : 1955 BED: DIS: 10/31/2020 SPEC #: [id number] RECD: 10/31/20 14:46 STATUS: MARY LUCIA #: [id number] EDGAR: 10/31/20 12:[address]: Yesi Elliott DEPT: Surgical Specimen RECD BY: Luz Huang Tissues: 1 - SKIN BIOPSY(SHAVE/PUNCH) Procedures: SKIN LEVEL 4 SPECIAL STAIN 1 Comments: [id number]
== END 2020-10-31 13:15 | disposition home or self-care (01) ==
LOC: LBN 13:14
PROVIDERS: PCP Physical Therapy Assistant; Visit Provider Physical Therapy Assistant
DX: L98.8 Other specified disorders of the skin and subcutaneous tissue (principal); L98.491 Non-pressure chronic ulcer of skin of other sites limited to breakdown of skin
CPT/HCPCS: 87077; 87070; 87186; 87205; 88305; 88312

== ENCOUNTER 2021-01-30 02:39 | Outpatient (CLI) | payer OTHER, SELFPAY ==
[2021-01-30 12:27] LABS: HCT 34.6 % (36.0-46.0); HGB 10.9 g/dL (11.2-15.7); MCH 27.4 pg (27.0-33.0); MCHC 31.5 % (32.0-36.0); MCV 86.9 fL (80-95); MPV 11.1 fL (8.0-11.0); Platelet Count 338 10^3/uL (130-400); RBC 3.98 10^6/uL (3.93-5.22); RDW 12.8 % (11.7-14.6); RDW-SD 40.8 fL
[2021-01-30 14:31] LABS: ALT 26 U/L (14-59); AST 13 U/L (15-37); Albumin 3.4 g/dL (3.4-5.0); Alkaline Phosphatase 129 U/L (46-116); BUN 42 mg/dL (7-18); Bilirubin, Total 0.2 mg/dL (0.2-1.0); CREATININE 1.5 mg/dL (0.55-1.02); Calcium 9.2 mg/dL (8.5-10.1); Chloride 108 mmol/L (98-107); Estimated GFR 35.07 (mL/min/1.73m2); Glucose 129 mg/dL (74-106); Potassium 5.7 mmol/L (3.5-5.1); Sodium 141 mmol/L (136-145); Total Protein 7.9 g/dL (6.4-8.2)
== END 2021-01-30 02:40 | disposition home or self-care (01) ==
LOC: LBO 02:40
PROVIDERS: PCP Student in an Organized Health Care Education/Training Program; Visit Provider Student in an Organized Health Care Education/Training Program
DX: D64.9 Anemia, unspecified (principal); N18.9 Chronic kidney disease, unspecified; R60.0 Localized edema; R77.0 Abnormality of albumin; E11.3313 Type 2 diabetes mellitus with moderate nonproliferative diabetic retinopathy with macular edema, bilateral
CPT/HCPCS: 36415; 80053; 85027

== ENCOUNTER 2021-04-10 14:32 | Outpatient (CLI) | payer OTHER, SELFPAY ==
--- NOTE | 2021-04-10 13:30 | DI.RAD_ITS ---
Exam(s) XR CHEST 2V PA LATERAL EXAM: XR CHEST 2V PA LATERAL CLINICAL HISTORY: r/o pneumonia, cough, oxygen desaturation, R05.9, R09.02, hypoxemia TECHNIQUE: COMPARISON: CR XR PORTABLE CHEST AP from 04/29/2020 FINDINGS: The heart is not enlarged. There are patchy bilateral subtle intrapulmonary infiltrates which were n ot present on prior chest radiograph of April 29, 2020. Findings are consistent with multifocal p neumonia. No pleural effusion seen. No pneumothorax. IMPRESSION: The appearance is consistent with a patchy bilateral multifocal pneumonia. The patient is reportedly COVID positive and the findings are consistent with COVID pneumonia RADIATION DOSE DELIVERED: Total DLP
== END 2021-04-10 14:52 ==
PROVIDERS: PCP Student in an Organized Health Care Education/Training Program; Visit Provider Student in an Organized Health Care Education/Training Program
DX: R05.8 Other specified cough (principal); R09.02 Hypoxemia; U07.1 COVID-19; J12.82 Pneumonia due to coronavirus disease 2019
CPT/HCPCS: 71046

== ENCOUNTER 2021-04-14 12:29 | Emergency (ER) | payer OTHER, SELFPAY ==
[2021-04-14 13:10] VITALS: BP 121/61; PULSE 94; RESP 16; TEMP 36.4; O2SAT 96
[2021-04-14 15:25] VITALS: BP 120/73; PULSE 72; RESP 15; TEMP 36.2; O2SAT 94
--- NOTE | 2021-04-14 16:13 | ED.GENADUL_ITS ---
Discharge Plan Disposition Patient Disposition: HOME Condition: Stable Discharge Details Clinical Impression: T2DM (type 2 diabetes mellitus), UTI (urinary tract infection), COVID-19, Dehydration Primary Care Provider: Korina Ibanez ED Provider: Ritika Celeste Home Meds and New Rx's Prescriptions: New cephalexin 500 mg capsule 500 mg PO TID 10 Days Qty: 30 RF: 0 ondansetron HCl [Zofran] 4 mg tablet 4 mg PO Q8H PRNQty: 7 RF: 0 Continued acetaminophen 325 mg capsule 325 mg PO ONCE PRNRF: 0 B complex-vitamin C-folic acid 1 mg tablet 1 tab PO DAILY RF: 0 (DME) blood sugar diagnostic Strip See Rx Instructions .ROUTE .MEDSUPPLY Qty: 100 RF: 3 Lantus Solostar U-100 Insulin 100 unit/mL (3 mL) insulin pen 20 unit SC DAILY AM Qty: 6 RF: 10 gabapentin 300 mg capsule 300 mg PO QHS Qty: 90 RF: 3 (DME) pen needle, diabetic [BD Ultra-Fine Mini Pen Needle] 31 gauge x 3/16 needle See Rx Instructions .ROUTE .MEDSUPPLY Qty: 100 RF: 3 guaifenesin 600 mg tablet extended release 12hr 600 mg PO BID Qty: 30 RF: 1 ipratropium-albuterol 0.5 mg-3 mg(2.5 mg base)/3 mL solution for nebulization 3 ml inhalation QID PRN (Reason: COVID pneumonia) Qty: 180 RF: 2 Discharge Instructions Instructions: Dehydration (ED), Urinary Tract Infection in Women (ED), Hyperkalemia (ED), Viral Syndrome (ED) Additional Instructions: drink at least 8 oz every 2 hours while awake, boost, ensure zofran for nausea and vomiting take antibiotic as prescribed until completed recheck with pcp in 24- 48 hours recheck potassium in 48 hours Referrals: Korina Ibanez DO [Primary Care Provider] - Medical Decision Making No hypoxia, vitals stable Initial potassium 5, initial BUN 73 Initial creatinine 1.7, creatinine not grossly changed from prior when compared although BUN is markedly elevated likely consistent with dehydration, patient is able to tolerate p.o., she had 2 L of fluid in the emergency room She does have evidence of urinary tract infection, she was given a dose of Keflex and will be discharged home on Keflex I did order repeat BMP and secondary to likely hemolysis, patient does have mildly potassium, she is given a repeat outpatient lab slip for potassium in the next 2 days She is encouraged to keep hydrated, she will need close outpatient follow-up with her primary care physician She is discharged home in stable condition with her Patient answered mobility I did consider monoclonal antibodies, however patient is greater than 10 days post diagnosis of COVID-19 Urine is pending culture at this time Medical Records Medical records reviewed: Yes I reviewed the patient's medical records. Lab Data Lab results reviewed: Yes I reviewed the patient's lab results. HPI General Mode of arrival: ambulatory . Date/Time Provider Initiated Documentation: 04/14/21 14:02 . Limitations to Documentation: no limitations . Information obtained by: patient . HPI Narrative: This 65-year-old female with recent diagnosis of COVID-19 on 03 April, pneumonia associated with COVID-19, diabetes, chronic kidney disease presents with report of possible dehydration. She states she is not been eating much as she is not hungry. She denies any current nausea or vomiting. She denies any chest pain or shortness of breath. She states she is actually feeling better. She said she was sent in by her primary care physician here that she received some IV fluid hydration. Patient denies any urinary symptoms. She states that her blood sugar this morning was 135. She is not taking her insulin as she has not been eating much. She denies any diarrhea. She denies any current antibiotic use. Denies any weakness or dizziness. Related Data Home Medications Medication Instructions Recorded Confirmed vitamin B complex-vitamin C-folic 1 tab PO DAILY 01/22/20 04/14/21 acid 1 mg tablet blood sugar diagnostic #100 ea 04/05/20 04/14/21 insulin glargine 100 unit/mL (3 20 unit SC DAILY AM #6 ml 05/27/20 04/10/21 mL) subcutaneous pen acetaminophen 325 mg capsule 325 mg PO ONCE PRN 06/05/20 04/14/21 gabapentin 300 mg capsule 300 mg PO QHS #90 cap 08/16/20 04/14/21 pen needle, diabetic 31 gauge x #100 ea 08/29/20 04/14/21 3/16 guaifenesin 600 mg tablet, 600 mg PO BID #30 tab 04/09/21 04/10/21 extended release 12 hr ipratropium 0.5 mg-albuterol 3 mg 3 ml INHALATION QID PRN #180 ml 04/10/21 04/10/21 (2.5 mg base)/3 mL nebulization soln cephalexin 500 mg PO TID 10 Days #30 cap 04/14/21 ondansetron HCl [Zofran] 4 mg PO Q8H PRN #7 tab 04/14/21 Previous Rx's Medication Instructions Recorded blood sugar diagnostic #100 ea 04/05/20 insulin glargine 100 unit/mL (3 20 unit SC DAILY AM #6 ml 05/27/20 mL) subcutaneous pen gabapentin 300 mg capsule 300 mg PO QHS #90 cap 08/16/20 pen needle, diabetic 31 gauge x #100 ea 08/29/2008/26 guaifenesin 600 mg tablet, 600 mg PO BID #30 tab 04/09/21 extended release 12 hr ipratropium 0.5 mg-albuterol 3 mg 3 ml INHALATION QID PRN #180 ml 04/10/21 (2.5 mg base)/3 mL nebulization soln cephalexin 500 mg PO TID 10 Days #30 cap 04/14/21 ondansetron HCl [Zofran] 4 mg PO Q8H PRN #7 tab 04/14/21 Allergies Allergy/AdvReac Type Severity Reaction Status Date / Time amlodipine AdvReac Unknown dizzyness Verified 04/14/21 13:16 General Stated Complaint: GenMedical ADEN: 3 Review of Systems All systems reviewed & are unremarkable except as noted in HPI and below PFSH Medical History (Updated 04/14/21 @ 19:41 by PEÑA Wesley) Abscess RT Shoulder .. I&D seems warranted, [ ] Surg. Hx scab, Hx wounds/sepsis 2019. Bacteremia due to other bacteria COVID-19 Dehydration DKA (diabetic ketoacidoses) Loss of appetite Pneumonia Due to COVID infection, CXR 04/10/21 Surgical History History of total left hip arthroplasty (04/30/20) As treatment for femoral neck fracture: 04/30/2020 Family History Father Diabetes Brother Diabetes Social History Smoking/Tobacco Use Status: Never Smoking risk assessment performed?: Yes Alcohol Intake: never Drug use: Never Substance use type: does not use Adopted: No Caregiver/Support person: No Foster care: No Household members: spouse Housing: apartment Do you need help understanding health information?: Rarely current occupation: Unemployed Do you think of yourself as: straight/heterosexual Current gender identity: female Do you feel safe at home: Yes Do you feel safe in your relationship?: Yes Exam Const General: cooperative and comfortable Orientation: alert and oriented x3 Eyes Pupils: PERRL Chest Chest: normal inspection of the chest Resp Effort & Inspection: normal respiratory effort Auscultation: clear to auscultation bilaterally Cardio Rate: regular rate Rhythm: regular rhythm GI Other: Nontender abdominal exam Skin General skin exam: no rashes or lesions noted Neuro General: patient alert and patient oriented x3 Extrem General: normal to inspection Course Vital Signs Vital signs: Vital Signs Temperature 36.4 C L 04/14/21 13:10 Pulse 94 H 04/14/21 13:10 Respiratory Rate 16 04/14/21 13:10 Blood Pressure 121/61 04/14/21 13:10 Pulse Oximetry 96 04/14/21 13:10 Temperature 36.2 C L 04/14/21 15:25 Temperature Source Tympanic 04/14/21 15:25 Pulse 72 04/14/21 15:25 Respiratory Rate 15 04/14/21 15:25 Respiratory Effort Non-Labored 04/14/21 13:15 Blood Pressure 120/73 04/14/21 15:25 Blood Pressure Position Sitting 04/14/21 13:10 Pulse Oximetry 94 04/14/21 15:25 Oxygen Delivery Method Room Air 04/14/21 15:25 Oxygen Flow Rate 0 04/14/21 15:25 Pain Level 0 04/14/21 13:10
[2021-04-14 16:29] VITALS: BP 118/82; PULSE 88; RESP 17; TEMP 35.8; O2SAT 93
[2021-04-14 16:43] LABS: Abs Immature Grans 0.06 10^3/uL (0.0-0.06); Absolute Basophil Count 0.02 10^3/uL (0.0-0.2); Absolute Eosinophil Count 0.18 10^3/uL (0.0-0.7); Absolute Monocyte Count 0.75 10^3/uL (0.1-0.8); Absolute Neutrophil Count 6.36 10^3/uL (1.2-6.7); Basophils % 0.2; Eosinophils % 2.2; HCT 34.1 % (36.0-46.0); HGB 10.6 g/dL (11.2-15.7); Immature Grans % 0.7; Lymphocytes % 11.9; MCH 27.1 pg (27.0-33.0); MCHC 31.1 % (32.0-36.0); MCV 87.2 fL (80-95); MPV 10.3 fL (8.0-11.0); Nucleated RBC 0 %; Platelet Count 467 10^3/uL (130-400); RBC 3.91 10^6/uL (3.93-5.22); RDW 12.6 % (11.7-14.6); RDW-SD 40.5 fL; WBC 8.37 10^3/uL (4.4-10.8)
[2021-04-14] MEDS: Lactated Ringers 1,000 ML 1000 ML IV ×2 (16:43→18:51)
[2021-04-14 16:58] LABS: ALT 28 U/L (14-59); AST 17 U/L (15-37); Albumin 2.7 g/dL (3.4-5.0); Alkaline Phosphatase 131 U/L (46-116); Anion Gap 11.9 mmol/L (3-11); BUN 73 mg/dL (7-18); Bilirubin, Total 0.5 mg/dL (0.2-1.0); CO2 23.1 mmol/L (21.0-32.0); CREATININE 1.7 mg/dL (0.55-1.02); Calcium 9.4 mg/dL (8.5-10.1); Chloride 101 mmol/L (98-107); Estimated GFR 30.36 (mL/min/1.73m2); Glucose 107 mg/dL (74-106); Sodium 136 mmol/L (136-145); Total Protein 9.3 g/dL (6.4-8.2)
[2021-04-14 17:15] VITALS: RESP 16
[2021-04-14 18:54] LABS: Bilirubin Negative (Negative); Blood Trace-intact (Negative); Clarity Cloudy (Clear); Glucose Negative (Negative); Ketones Negative (Negative); Leukocyte Esterase Moderate (Negative); Nitrite Positive (Negative); pH 5.5 (5-8)
[2021-04-14 19:07] LABS: Epithelial Cells Few HPF (Negative); WBC >50 HPF (0-5)
[2021-04-14 19:08] LABS: Bacteria Packed HPF (Negative); C & S Indicated? Yes; Crystals Negative HPF (Negative); Mucus Negative (Negative)
[2021-04-14] MEDS: Cephalexin 500 MG CAP PO (19:50)
[2021-04-14 20:55] LABS: Anion Gap 9.5 mmol/L (3-11); BUN 63 mg/dL (7-18); CO2 23.5 mmol/L (21.0-32.0); CREATININE 1.4 mg/dL (0.55-1.02); Calcium 8.4 mg/dL (8.5-10.1); Chloride 106 mmol/L (98-107); Estimated GFR 37.98 (mL/min/1.73m2); Glucose 83 mg/dL (74-106); Potassium 5.3 mmol/L (3.5-5.1); Sodium 139 mmol/L (136-145)
[2021-04-14 21:25] VITALS: BP 125/75; PULSE 88; RESP 18; O2SAT 98
== END 2021-04-14 21:29 | disposition home or self-care (01) ==
PROVIDERS: Emergency Provider Physician Assistant; PCP Student in an Organized Health Care Education/Training Program
DX: U07.1 COVID-19 (principal); E11.22 Type 2 diabetes mellitus with diabetic chronic kidney disease; N39.0 Urinary tract infection, site not specified; B96.89 Other specified bacterial agents as the cause of diseases classified elsewhere; E86.0 Dehydration; N18.9 Chronic kidney disease, unspecified
CPT/HCPCS: 36415; 80048; 80053; 87077; 96360; 96361; 99284; 81003; 81015; 85025; 87086; 87186

== ENCOUNTER 2021-04-18 19:21 | Outpatient (REF) | payer OTHER, SELFPAY ==
[2021-04-18 20:16] LABS: Anion Gap 9.4 mmol/L (3-11); BUN 37 mg/dL (7-18); CO2 24.6 mmol/L (21.0-32.0); CREATININE 1.4 mg/dL (0.55-1.02); Chloride 104 mmol/L (98-107); Estimated GFR 37.98 (mL/min/1.73m2); Glucose 165 mg/dL (74-106); Potassium 5.4 mmol/L (3.5-5.1); Sodium 138 mmol/L (136-145)
== END 2021-04-18 19:22 | disposition home or self-care (01) ==
LOC: NCHCN 19:21
PROVIDERS: PCP Student in an Organized Health Care Education/Training Program; Visit Provider Student in an Organized Health Care Education/Training Program
DX: E86.0 Dehydration (principal); J18.9 Pneumonia, unspecified organism; U07.1 COVID-19
CPT/HCPCS: 80048

== ENCOUNTER 2021-04-30 02:20 | Outpatient (CLI) | payer OTHER, SELFPAY ==
[2021-04-30 11:09] LABS: Abs Immature Grans 0.02 10^3/uL (0.0-0.06); Absolute Basophil Count 0.06 10^3/uL (0.0-0.2); Absolute Eosinophil Count 0.16 10^3/uL (0.0-0.7); Absolute Lymphocyte Count 2.13 10^3/uL (1.2-3.4); Absolute Monocyte Count 0.43 10^3/uL (0.1-0.8); Absolute Neutrophil Count 4.02 10^3/uL (1.2-6.7); Basophils % 0.9; Eosinophils % 2.3; HCT 33.1 % (36.0-46.0); HGB 10.1 g/dL (11.2-15.7); Immature Grans % 0.3; Lymphocytes % 31.2; MCH 27.2 pg (27.0-33.0); MCHC 30.5 % (32.0-36.0); MCV 89.2 fL (80-95); Monocytes % 6.3; Nucleated RBC 0 %; Platelet Count 381 10^3/uL (130-400); RBC 3.71 10^6/uL (3.93-5.22); RDW-SD 45.8 fL; WBC 6.82 10^3/uL (4.4-10.8)
[2021-04-30 12:20] LABS: Anion Gap 7.4 mmol/L (3-11); BUN 23 mg/dL (7-18); CO2 27.6 mmol/L (21.0-32.0); CREATININE 1.3 mg/dL (0.55-1.02); Calcium 9.1 mg/dL (8.5-10.1); Chloride 107 mmol/L (98-107); Estimated GFR 41.37 (mL/min/1.73m2); Glucose 117 mg/dL (74-106); Potassium 5.3 mmol/L (3.5-5.1); Sodium 142 mmol/L (136-145)
== END 2021-04-30 02:21 | disposition home or self-care (01) ==
LOC: LBO 02:20
PROVIDERS: PCP Student in an Organized Health Care Education/Training Program; Visit Provider Student in an Organized Health Care Education/Training Program
DX: J12.82 Pneumonia due to coronavirus disease 2019 (principal); N18.9 Chronic kidney disease, unspecified; Z86.2 Personal history of diseases of the blood and blood-forming organs and certain disorders involving the immune mechanism
CPT/HCPCS: 36415; 80048; 85025

== ENCOUNTER 2021-04-30 14:16 | Outpatient (CLI) | payer OTHER, SELFPAY ==
--- NOTE | 2021-04-30 10:00 | DI.RAD_ITS ---
Exam(s) XR HIP LT AP LAT ONLY EXAM: XR HIP LT AP LAT ONLY CLINICAL HISTORY: ANNUAL F/U L ADAN. TECHNIQUE: 2D digital imaging was performed. COMPARISON: CR XR HIP LT COMPLETE AP PELVIS from 05/30/2020 FINDINGS: Continued stable position alignment of the components of the left hip prosthesis. No evidence of fra cture nor loosening evident. No radiographic evidence of osteomyelitis. Acetabular cup appears unch anged. Opposite-right hip appears unremarkable. IMPRESSION: DATA REPOSITORY: RADIATION DOSE DELIVERED:
== END 2021-04-30 14:17 | disposition home or self-care (01) ==
LOC: DIORS 14:17
PROVIDERS: PCP Student in an Organized Health Care Education/Training Program; Referring Provider Student in an Organized Health Care Education/Training Program; Visit Provider Student in an Organized Health Care Education/Training Program
DX: Z96.642 Presence of left artificial hip joint (principal); Z47.1 Aftercare following joint replacement surgery
CPT/HCPCS: 73502

== ENCOUNTER 2021-12-28 02:28 | Outpatient (CLI) | payer OTHER, SELFPAY ==
[2021-12-28 13:07] LABS: ALT 28 U/L (14-59); AST 17 U/L (15-37); Albumin 3.3 g/dL (3.4-5.0); Alkaline Phosphatase 120 U/L (46-116); Anion Gap 7.4 mmol/L (3-11); BUN 40 mg/dL (7-18); Bilirubin, Total 0.2 mg/dL (0.2-1.0); CO2 23.6 mmol/L (21.0-32.0); CREATININE 1.7 mg/dL (0.55-1.02); Calcium 9.1 mg/dL (8.5-10.1); Chloride 108 mmol/L (98-107); Estimated GFR 30.26 (mL/min/1.73m2); Glucose 177 mg/dL (74-106); Potassium 5.4 mmol/L (3.5-5.1); Sodium 139 mmol/L (136-145)
== END 2021-12-28 02:29 | disposition home or self-care (01) ==
LOC: LBO 02:28
PROVIDERS: PCP Student in an Organized Health Care Education/Training Program; Visit Provider Student in an Organized Health Care Education/Training Program
DX: E11.8 Type 2 diabetes mellitus with unspecified complications (principal); E46 Unspecified protein-calorie malnutrition; N18.9 Chronic kidney disease, unspecified; R60.0 Localized edema
CPT/HCPCS: 36415; 80053

== ENCOUNTER 2022-01-01 02:12 | Outpatient (CLI) | payer OTHER, SELFPAY ==
[2022-01-01 11:50] LABS: Anion Gap 8.2 mmol/L (3-11); BUN 40 mg/dL (7-18); CO2 22.8 mmol/L (21.0-32.0); CREATININE 1.6 mg/dL (0.55-1.02); Calcium 8.8 mg/dL (8.5-10.1); Chloride 107 mmol/L (98-107); Estimated GFR 32.45 (mL/min/1.73m2); Glucose 149 mg/dL (74-106); Potassium 5.4 mmol/L (3.5-5.1); Sodium 138 mmol/L (136-145)
== END 2022-01-01 02:13 | disposition home or self-care (01) ==
LOC: LBO 02:12
PROVIDERS: PCP Student in an Organized Health Care Education/Training Program; Visit Provider Student in an Organized Health Care Education/Training Program
DX: N17.9 Acute kidney failure, unspecified (principal); E11.9 Type 2 diabetes mellitus without complications
CPT/HCPCS: 36415; 80048

== ENCOUNTER 2022-01-07 03:12 | Outpatient (CLI) | payer OTHER, SELFPAY ==
[2022-01-07 13:18] LABS: Anion Gap 9.2 mmol/L (3-11); BUN 46 mg/dL (7-18); CO2 22.8 mmol/L (21.0-32.0); CREATININE 1.7 mg/dL (0.55-1.02); Calcium 9.2 mg/dL (8.5-10.1); Chloride 106 mmol/L (98-107); Estimated GFR 30.26 (mL/min/1.73m2); Glucose 141 mg/dL (74-106); Potassium 5.7 mmol/L (3.5-5.1); Sodium 138 mmol/L (136-145)
== END 2022-01-07 03:13 | disposition home or self-care (01) ==
LOC: LBO 03:12
PROVIDERS: PCP Student in an Organized Health Care Education/Training Program; Visit Provider Student in an Organized Health Care Education/Training Program
DX: R79.89 Other specified abnormal findings of blood chemistry (principal); E11.8 Type 2 diabetes mellitus with unspecified complications; N18.9 Chronic kidney disease, unspecified
CPT/HCPCS: 36415; 80048

== ENCOUNTER 2022-01-08 07:53 | Emergency (ER) | payer OTHER, SELFPAY ==
--- NOTE | 2022-01-08 07:45 | RT.EKG_ITS ---
APPROVED REPORT Exam: Resting ECG Reason for Exam: hyperkalemia Patient Location: E HR:88 bpm ECG Measurements Heart Rate 88 AXIS ND 168 P 68 QRSd 78 QRS -16 QT 348 T 61 QTc 421 Conclusion Sinus rhythm...normal P axis, V-rate 60- 99 sinus rhythm, left axis, normal intervals, non ischemic
[2022-01-08 08:07] VITALS: BP 187/70; PULSE 82; RESP 14; TEMP 36.7; O2SAT 98
[2022-01-08 08:25] LABS: Abs Immature Grans 0.03 10^3/uL (0.0-0.06); Absolute Basophil Count 0.06 10^3/uL (0.0-0.2); Absolute Eosinophil Count 0.31 10^3/uL (0.0-0.7); Absolute Lymphocyte Count 2.69 10^3/uL (1.2-3.4); Absolute Monocyte Count 0.57 10^3/uL (0.1-0.8); Absolute Neutrophil Count 3.18 10^3/uL (1.2-6.7); Basophils % 0.9; Eosinophils % 4.5; HCT 36.3 % (36.0-46.0); HGB 11.5 g/dL (11.2-15.7); Immature Grans % 0.4; Lymphocytes % 39.3; MCH 28.1 pg (27.0-33.0); MCHC 31.7 % (32.0-36.0); MCV 89 fL (80-95); MPV 10.8 fL (8.0-11.0); Monocytes % 8.3; Neutrophils % 46.6; Platelet Count 290 10^3/uL (130-400); RBC 4.09 10^6/uL (3.93-5.22); RDW 12.5 % (11.7-14.6); RDW-SD 41.1 fL; WBC 6.84 10^3/uL (4.4-10.8)
--- NOTE | 2022-01-08 08:32 | W.ED.GENAD ---
Discharge Plan Disposition Patient Disposition: HOME Condition: Improving Discharge Details Chief Complaint: GenMedical Clinical Impression: CKD (chronic kidney disease) Primary Care Provider: Korina Ibanez ED Provider: Rory Davis Home Meds and New Rx's Prescriptions: No Action acetaminophen 325 mg capsule 325 mg PO ONCE PRN ascorbic acid (vitamin C) 500 mg capsule 500 mg PO .dialy zinc oxide 25 % paste 1 applic topical TID Qty: 500 1RF Rx Instructions: Try on forehead skin ulcers; may try on arms/legs also Lantus Solostar U-100 Insulin 100 unit/mL (3 mL) insulin pen 20 unit SC DAILY AM Qty: 15 0RF Rx Instructions: Continue with pen instead of vial - takes between 10am-12pm. 03/27/20 (DME) blood sugar diagnostic Strip See Rx Instructions .ROUTE .MEDSUPPLY Qty: 100 3RF Rx Instructions: Pt uses One Touch Ultra vitamin B complex Tablet 1 tab PO DAILY gabapentin 300 mg capsule 300 mg PO QHS Qty: 90 3RF Rx Instructions: Continue for tingling (DME) pen needle, diabetic [BD Ultra-Fine Mini Pen Needle] 31 gauge x 3/16 needle See Rx Instructions .ROUTE .MEDSUPPLY Qty: 100 3RF Rx Instructions: For daily insulin, A1C < 7, Diabetes E11.65 ondansetron HCl [Zofran] 4 mg tablet 4 mg PO Q8H PRNQty: 7 0RF Discharge Instructions Instructions: Chronic Kidney Disease (ED) Additional Instructions: Please follow-up with your primary care physician. Please return to the emergency department you develop any abnormal symptoms such as chest pain trouble breathing abnormal heart rate decreased urination swelling or other abnormal symptoms. Medical Decision Making 56-year-old female history of diabetes, presents referred by her primary care doctor for MEGAN and hyperkalemia, creatinine on outpatient labs 1.7 and potassium of 7, patient is asymptomatic denies chest pain shortness of breath presyncope, endorses that her peripheral edema that is chronic is actually getting better, patient is hemodynamically stable nontachycardic EKG nonischemic without any peaked T waves, of note patient has had dialysis in the past however it sounds like he was in the setting of a kidney infection and MEGAN, no longer on dialysis, trace edema to bilateral ankles, afebrile, will repeat labs. Treatment and disposition pending repeat lab work. 9: 42 patient resting comfortably no acute distress. Potassium 5. EKG nonischemic no peaked T waves. Patient is asymptomatic. Consider hemolysis and outpatient labs resulting in elevated potassium. Given home care instructions and strict return precautions. Will follow up with primary care physician. HPI General Date/Time Provider Initiated Documentation: 01/08/22 07:59. HPI Narrative: 66-year-old female history of diabetes, presents referred in by her primary care physician for MEGAN and hyperkalemia, uptrending creatinine from last visit to 1.7, potassium of 7 on outpatient labs. Patient is asymptomatic no chest pain or shortness of breath, endorses that her lower extremity edema is actually getting better than baseline denies fevers chills or other systemic symptoms. Had a kidney infection in the past and was on 1 session of dialysis no longer on dialysis. Related Data Home Medications Medication Instructions Recorded Confirmed blood sugar diagnostic #100 ea 04/05/20 12/23/21 acetaminophen 325 mg capsule 325 mg PO ONCE PRN 06/05/20 01/08/22 ondansetron HCl 4 mg tablet 4 mg PO Q8H PRN #7 tabs 04/14/21 01/08/22 (Zofran) ascorbic acid (vitamin C) 500 mg 500 mg PO .dialy 06/02/21 01/08/22 capsule vitamin B complex 1 tab PO DAILY 08/13/21 01/08/22 gabapentin 300 mg capsule 300 mg PO QHS #90 caps 11/05/21 01/08/22 pen needle, diabetic 31 gauge x #100 ea 11/05/21 12/23/21 3/16 (BD Ultra-Fine Mini Pen Needle) zinc oxide 25 % topical paste 1 applic topical TID #500 grams 12/23/21 01/08/22 insulin glargine 100 unit/mL (3 20 unit (0.2 mL) subcut DAILY AM 12/29/21 01/08/22 mL) subcutaneous pen (Lantus #15 mL Solostar U-100 Insulin) Previous Rx's Medication Instructions Recorded blood sugar diagnostic #100 ea 04/05/20 ondansetron HCl 4 mg tablet 4 mg PO Q8H PRN #7 tabs 04/14/21 (Zofran) gabapentin 300 mg capsule 300 mg PO QHS #90 caps 11/05/21 pen needle, diabetic 31 gauge x #100 ea 11/05/21 3/16 (BD Ultra-Fine Mini Pen Needle) zinc oxide 25 % topical paste 1 applic topical TID #500 grams 12/23/21 insulin glargine 100 unit/mL (3 20 unit (0.2 mL) subcut DAILY AM 12/29/21 mL) subcutaneous pen (Lantus #15 mL Solostar U-100 Insulin) Allergies Allergy/AdvReac Type Severity Reaction Status Date / Time amlodipine AdvReac Unknown dizzyness Verified 01/08/22 08:10 General Stated Complaint: GenMedical ADEN: 3 Review of Systems Narrative: Review of Systems Constitutional: negative Eyes: negative ENT: negative Cardiovascular: negative Respiratory: negative Gastrointestinal: negative : negative Musculoskeletal: negative Skin: negative Neurologic: negative Psych: negative PFSH All Active Problems (Updated 01/08/22 @ 09:44 by Rory Davis MD) CKD (chronic kidney disease) (Chronic) DM (diabetes mellitus) with complications (Acute) Foot deformity, bilateral (Acute) Curled toes, uncontrolled/painful edama (R >>L) Poor circulation of extremity (Acute) History of foot ulcer (Acute) Edema, leg (Acute) LE Edema, notable and with ulcers, 05/2021 Leg ulcer (Acute) Acute on chronic issue as ulcers re-appear w/o clear etiology. Hx MRSA. 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 I&D seems warranted, [ ] Surg. Hx scab, Hx wounds/sepsis 2019. Bacteremia due to other bacteria Diabetic ulcer of right great toe (02/04/20) [facility] DKA (diabetic ketoacidoses) Left displaced femoral neck fracture 04/29/20 [facility] [place]anst[place] MRSA (methicillin resistant staph aureus) culture positive Open wound of right lower extremity (02/04/20) [facility] Surgical History History of total left hip arthroplasty (04/30/20) As treatment for femoral neck fracture: 04/30/2020 Family History Father Diabetes Brother Diabetes Social History Smoking/Tobacco Use Status: Never Smoking risk assessment performed?: Yes Alcohol Intake: never Drug use: Never Substance use type: does not use Adopted: No Caregiver/Support person: No Foster care: No Household members: spouse Housing: apartment Do you need help understanding health information?: Rarely current occupation: Unemployed Do you think of yourself as: straight/heterosexual Current gender identity: female Do you feel safe at home: Yes Do you feel safe in your relationship?: Yes Exam Narrative Exam Narrative: Physical Examination General: alert, awake, cooperative, resting comfortably, no acute distress HEENT: normocephalic, atraumatic; PERRL, EOM intact, conjunctiva normal; no nasal discharge; moist mucous membranes, oral and pharyngeal mucosa normal, tolerating secretions Neck: supple, trachea midline; full ROM Chest: normal to inspection Respiratory: normal respiratory effort, speaking in full sentences, clear to auscultation, no wheezing, rales or rhonchi Cardiac: regular rate, regular rhythm, S1S2 intact, no murmurs rubs or gallops GI: abdomen soft, non-tender, non-distended; no palpable mass or hepatosplenomegaly Skin: no lesions, rashes or trauma appreciated Neuro: AAOx3, normal speech, moving all extremities Extremities: Trace edema to bilateral ankles Psych: Appropriate mood and affect Course Vital Signs Vital signs: Vital Signs Temperature 36.7 C 01/08/22 08:07 Pulse 82 01/08/22 08:07 Respiratory Rate 14 01/08/22 08:07 Blood Pressure 187/70 H 01/08/22 08:07 Pulse Oximetry 98 01/08/22 08:07 Temperature 36.7 C 01/08/22 08:07 Temperature Source Temporal Artery Scan 01/08/22 08:07 Pulse 82 01/08/22 08:07 Respiratory Rate 14 01/08/22 08:07 Respiratory Effort Non-Labored 01/08/22 08:12 Respiratory Depth Normal 01/08/22 08:12 Respiratory Pattern Normal 01/08/22 08:12 Blood Pressure 187/70 H 01/08/22 08:07 Blood Pressure Position Supine 01/08/22 08:07 Pulse Oximetry 98 01/08/22 08:07 Oxygen Delivery Method Room Air 01/08/22 08:07 Oxygen Flow Rate 0 01/08/22 08:07 Pain Level 0 01/08/22 08:07 Lab/Test Results Lab/Test Results: Laboratory Tests Range/Units 01/08/22 07:59 WBC (4.4-10.8) 10^3/uL 6.84 RBC (3.93-5.22) 10^6/uL 4.09 Hgb (11.2-15.7) g/dL 11.5 Hct (36.0-46.0) % 36.3 MCV (80-95) fL 89 MCH (27.0-33.0) pg 28.1 MCHC (32.0-36.0) % 31.7 L RDW (11.7-14.6) % 12.5 Plt Count (130-400) 10^3/uL 290 MPV (8.0-11.0) fL 10.8 Immature Gran % 0.4 Neutrophils % 46.6 Lymphocytes % 39.3 Monocytes % 8.3 Eosinophils % 4.5 Basophils % 0.9 Nucleated RBC % (0.0-0.3) % 0.0 Absolute Neutrophils (1.2-6.7) 10^3/uL 3.18 Absolute Lymphocytes (1.2-3.4) 10^3/uL 2.69 Absolute Monocytes (0.1-0.8) 10^3/uL 0.57 Absolute Eosinophils (0.0-0.7) 10^3/uL 0.31 Absolute Basophils (0.0-0.2) 10^3/uL 0.06
[2022-01-08 08:40] LABS: AST 11 U/L (15-37); Albumin 3.4 g/dL (3.4-5.0); Alkaline Phosphatase 112 U/L (46-116); BUN 42 mg/dL (7-18); Bilirubin, Total 0.3 mg/dL (0.2-1.0); CREATININE 1.6 mg/dL (0.55-1.02); Calcium 8.9 mg/dL (8.5-10.1); Chloride 108 mmol/L (98-107); Estimated GFR 32.45 (mL/min/1.73m2); Glucose 117 mg/dL (74-106); Sodium 138 mmol/L (136-145)
[2022-01-08 08:42] LABS: ALT < 6 U/L (14-59)
== END 2022-01-08 10:00 | disposition home or self-care (01) ==
PROVIDERS: Emergency Provider Emergency Medicine; PCP Student in an Organized Health Care Education/Training Program
DX: E11.22 Type 2 diabetes mellitus with diabetic chronic kidney disease (principal); N18.9 Chronic kidney disease, unspecified; E87.5 Hyperkalemia
CPT/HCPCS: 80053; 93005; 99283; 85025; 93010; 99284

== ENCOUNTER 2022-02-11 12:39 | Outpatient (CLI) | payer OTHER, SELFPAY ==
[2022-02-11 14:13] LABS: Anion Gap 9.3 mmol/L (3-11); BUN 39 mg/dL (7-18); CO2 21.7 mmol/L (21.0-32.0); CREATININE 1.5 mg/dL (0.55-1.02); Calcium 8.8 mg/dL (8.5-10.1); Chloride 110 mmol/L (98-107); Estimated GFR 38.67 (mL/min/1.73m2); Glucose 136 mg/dL (74-106); Potassium 5.3 mmol/L (3.5-5.1); Sodium 141 mmol/L (136-145)
== END 2022-02-11 12:40 | disposition home or self-care (01) ==
LOC: LBO 12:39
PROVIDERS: PCP Student in an Organized Health Care Education/Training Program; Visit Provider Student in an Organized Health Care Education/Training Program
DX: E11.8 Type 2 diabetes mellitus with unspecified complications (principal); N18.9 Chronic kidney disease, unspecified
CPT/HCPCS: 36415; 80048

== ENCOUNTER 2022-02-26 01:49 | Outpatient (CLI) | payer OTHER, SELFPAY ==
[2022-02-26 13:35] LABS: Anion Gap 8.8 mmol/L (3-11); BUN 45 mg/dL (7-18); CO2 22.2 mmol/L (21.0-32.0); CREATININE 1.5 mg/dL (0.55-1.02); Calcium 9.3 mg/dL (8.5-10.1); Chloride 107 mmol/L (98-107); Estimated GFR 38.67 (mL/min/1.73m2); Glucose 133 mg/dL (74-106); Potassium 5.2 mmol/L (3.5-5.1); Sodium 138 mmol/L (136-145)
== END 2022-02-26 01:50 | disposition home or self-care (01) ==
PROVIDERS: PCP Student in an Organized Health Care Education/Training Program; Visit Provider Student in an Organized Health Care Education/Training Program
DX: E11.8 Type 2 diabetes mellitus with unspecified complications (principal); E87.5 Hyperkalemia
CPT/HCPCS: 36415; 80048

== ENCOUNTER 2022-03-24 02:21 | Outpatient (CLI) | payer OTHER, SELFPAY ==
[2022-03-24 09:03] LABS: Anion Gap 8.7 mmol/L (3-11); BUN 38 mg/dL (7-18); CO2 23.3 mmol/L (21.0-32.0); CREATININE 1.5 mg/dL (0.55-1.02); Calcium 9.2 mg/dL (8.5-10.1); Chloride 108 mmol/L (98-107); Estimated GFR 38.67 (mL/min/1.73m2); Glucose 87 mg/dL (74-106); Magnesium 1.8 mg/dL (1.8-2.4); Sodium 140 mmol/L (136-145)
== END 2022-03-24 02:22 | disposition home or self-care (01) ==
LOC: LBO 02:21
PROVIDERS: PCP Student in an Organized Health Care Education/Training Program; Visit Provider Student in an Organized Health Care Education/Training Program
DX: E87.5 Hyperkalemia (principal); E11.8 Type 2 diabetes mellitus with unspecified complications; N18.30 Chronic kidney disease, stage 3 unspecified; R60.0 Localized edema; D64.9 Anemia, unspecified; I10 Essential (primary) hypertension
CPT/HCPCS: 36415; 80048; 83735

== ENCOUNTER 2022-05-24 03:09 | Outpatient (CLI) | payer OTHER, SELFPAY ==
[2022-05-24 13:55] LABS: Anion Gap 6.7 mmol/L (3-11); BUN 41 mg/dL (7-18); CO2 25.3 mmol/L (21.0-32.0); CREATININE 1.6 mg/dL (0.55-1.02); Calcium 9.6 mg/dL (8.5-10.1); Chloride 105 mmol/L (98-107); Estimated GFR 35.79 (mL/min/1.73m2); Glucose 136 mg/dL (74-106); Potassium 5.2 mmol/L (3.5-5.1); Sodium 137 mmol/L (136-145)
== END 2022-05-24 03:10 | disposition home or self-care (01) ==
LOC: LBO 03:10
PROVIDERS: PCP Student in an Organized Health Care Education/Training Program; Visit Provider Student in an Organized Health Care Education/Training Program
DX: E87.5 Hyperkalemia (principal); E11.9 Type 2 diabetes mellitus without complications
CPT/HCPCS: 36415; 80048

== ENCOUNTER 2022-07-06 15:46 | Outpatient (CLI) | payer OTHER, SELFPAY ==
[2022-07-06 13:49] LABS: Anion Gap 7.1 mmol/L (3-11); BUN 39 mg/dL (7-18); CO2 25.9 mmol/L (21.0-32.0); CREATININE 1.5 mg/dL (0.55-1.02); Calcium 9.4 mg/dL (8.5-10.1); Chloride 104 mmol/L (98-107); Estimated GFR 38.67 (mL/min/1.73m2); Glucose 164 mg/dL (74-106); Magnesium 1.9 mg/dL (1.8-2.4); Potassium 5.2 mmol/L (3.5-5.1); Sodium 137 mmol/L (136-145)
== END 2022-07-06 15:47 | disposition home or self-care (01) ==
LOC: LBO 15:46
PROVIDERS: PCP Student in an Organized Health Care Education/Training Program; Visit Provider Student in an Organized Health Care Education/Training Program
DX: E11.3313 Type 2 diabetes mellitus with moderate nonproliferative diabetic retinopathy with macular edema, bilateral (principal); E87.6 Hypokalemia
CPT/HCPCS: 36415; 80048; 83735

== ENCOUNTER 2022-08-06 02:26 | Outpatient (CLI) | payer MEDICARE, SELFPAY ==
[2022-08-06 08:42] LABS: HCT 37.2 % (36.0-46.0); HGB 11.6 g/dL (11.2-15.7); MCH 28.4 pg (27.0-33.0); MCHC 31.2 % (32.0-36.0); MCV 91 fL (80-95); MPV 10.8 fL (8.0-11.0); Platelet Count 297 10^3/uL (130-400); RBC 4.08 10^6/uL (3.93-5.22); RDW 13.1 % (11.7-14.6); RDW-SD 43.6 fL; WBC 7.45 10^3/uL (4.4-10.8)
[2022-08-06 09:10] LABS: Anion Gap 10.1 mmol/L (3-11); BUN 48 mg/dL (7-18); CO2 22.9 mmol/L (21.0-32.0); CREATININE 1.6 mg/dL (0.55-1.02); Calcium 9.4 mg/dL (8.5-10.1); Chloride 108 mmol/L (98-107); Estimated GFR 35.57 (mL/min/1.73m2); Glucose 136 mg/dL (74-106); Sodium 141 mmol/L (136-145)
== END 2022-08-06 02:27 | disposition home or self-care (01) ==
LOC: LBO 02:26
PROVIDERS: PCP Student in an Organized Health Care Education/Training Program; Referring Provider Student in an Organized Health Care Education/Training Program; Visit Provider Student in an Organized Health Care Education/Training Program
DX: D64.9 Anemia, unspecified (principal); E87.8 Other disorders of electrolyte and fluid balance, not elsewhere classified; N18.9 Chronic kidney disease, unspecified; E87.5 Hyperkalemia
CPT/HCPCS: 36415; 80048; 85027; 83735

== ENCOUNTER 2023-02-15 02:28 | Outpatient (CLI) | payer MEDICARE, SELFPAY ==
[2023-02-15 09:25] LABS: Anion Gap 8.5 mmol/L (3-11); BUN 43 mg/dL (7-18); CO2 22.5 mmol/L (21.0-32.0); CREATININE 1.8 mg/dL (0.55-1.02); Calcium 9.1 mg/dL (8.5-10.1); Chloride 107 mmol/L (98-107); Estimated GFR 30.88 (mL/min/1.73m2); Glucose 107 mg/dL (74-106); Potassium 5.2 mmol/L (3.5-5.1); Sodium 138 mmol/L (136-145)
== END 2023-02-15 02:29 | disposition home or self-care (01) ==
LOC: LBO 02:28
PROVIDERS: PCP Student in an Organized Health Care Education/Training Program; Visit Provider Student in an Organized Health Care Education/Training Program
DX: N18.30 Chronic kidney disease, stage 3 unspecified (principal); E11.65 Type 2 diabetes mellitus with hyperglycemia; R60.0 Localized edema
CPT/HCPCS: 36415; 80048

== ENCOUNTER 2023-05-23 05:25 | Outpatient (CLI) | payer MEDICARE, SELFPAY ==
[2023-05-23 14:57] LABS: Abs Immature Grans 0.02 10^3/uL (0.0-0.06); Absolute Basophil Count 0.08 10^3/uL (0.0-0.2); Absolute Eosinophil Count 0.14 10^3/uL (0.0-0.7); Absolute Lymphocyte Count 3.31 10^3/uL (1.2-3.4); Absolute Monocyte Count 0.57 10^3/uL (0.1-0.8); Absolute Neutrophil Count 4.42 10^3/uL (1.2-6.7); Basophils % 0.9; Eosinophils % 1.6; HCT 30.8 % (36.0-46.0); HGB 9.6 g/dL (11.2-15.7); Immature Grans % 0.2; Lymphocytes % 38.8; MCH 27.6 pg (27.0-33.0); MCHC 31.2 % (32.0-36.0); MCV 89 fL (80-95); MPV 10.4 fL (8.0-11.0); Monocytes % 6.7; Neutrophils % 51.8; Platelet Count 343 10^3/uL (130-400); RBC 3.48 10^6/uL (3.93-5.22); RDW-SD 48.3 fL; WBC 8.54 10^3/uL (4.4-10.8)
[2023-05-23 15:07] LABS: Anion Gap 11.4 mmol/L (3-11); BUN 46 mg/dL (7-18); CO2 21.6 mmol/L (21.0-32.0); Calcium 9.8 mg/dL (8.5-10.1); Chloride 106 mmol/L (98-107); Estimated GFR 27.21 (mL/min/1.73m2); Glucose 130 mg/dL (74-106); Sodium 139 mmol/L (136-145)
== END 2023-05-23 05:26 | disposition home or self-care (01) ==
LOC: LBO 05:25
PROVIDERS: PCP Student in an Organized Health Care Education/Training Program; Referring Provider Student in an Organized Health Care Education/Training Program; Visit Provider Student in an Organized Health Care Education/Training Program
DX: E11.8 Type 2 diabetes mellitus with unspecified complications; L08.9 Local infection of the skin and subcutaneous tissue, unspecified; L97.919 Non-pressure chronic ulcer of unspecified part of right lower leg with unspecified severity; N18.30 Chronic kidney disease, stage 3 unspecified; S90.424A Blister (nonthermal), right lesser toe(s), initial encounter
CPT/HCPCS: 36415; 80048; 85025

== ENCOUNTER 2023-05-24 11:25 | Outpatient (REF) | payer MEDICARE, SELFPAY | END 2023-05-24 11:26 | disposition home or self-care (01) | LOC: LBN 11:25 | PROVIDERS: PCP Student in an Organized Health Care Education/Training Program; Visit Provider Student in an Organized Health Care Education/Training Program | DX: S90.422A Blister (nonthermal), left great toe, initial encounter (principal) | CPT/HCPCS: 87077; 87070; 87186 ==

== ENCOUNTER → 2023-05-30 14:15 | Outpatient (BNVA) | payer MEDICARE, SELFPAY | PROVIDERS: PCP Student in an Organized Health Care Education/Training Program; Referring Provider Student in an Organized Health Care Education/Training Program; Visit Provider Surgery | DX: S91.102A Unspecified open wound of left great toe without damage to nail, initial encounter (principal); X58.XXXA Exposure to other specified factors, initial encounter | CPT/HCPCS: 11042 ==

== ENCOUNTER → 2023-06-03 13:32 | Outpatient (BNVA) | payer MEDICARE, SELFPAY | PROVIDERS: PCP Student in an Organized Health Care Education/Training Program; Referring Provider Student in an Organized Health Care Education/Training Program; Visit Provider Physical Therapy Assistant | DX: S91.102D Unspecified open wound of left great toe without damage to nail, subsequent encounter (principal); X58.XXXD Exposure to other specified factors, subsequent encounter; E11.9 Type 2 diabetes mellitus without complications; Z86.14 Personal history of Methicillin resistant Staphylococcus aureus infection | CPT/HCPCS: 99214 ==

== ENCOUNTER 2023-06-09 01:05 | Outpatient (CLI) | payer MEDICARE, SELFPAY ==
[2023-06-09 10:03] LABS: HGB 9.7 g/dL (11.2-15.7)
[2023-06-09 10:16] LABS: BUN 32 mg/dL (7-18); CREATININE 1.4 mg/dL (0.55-1.02); Chloride 108 mmol/L (98-107); Estimated GFR 41.75 (mL/min/1.73m2); Glucose 90 mg/dL (74-106); Magnesium 1.6 mg/dL (1.8-2.4); Potassium 5.1 mmol/L (3.5-5.1); Sodium 140 mmol/L (136-145)
[2023-06-12 16:03] LABS: Lab Add On Test DONE
[2023-06-12 16:32] LABS: Ferritin 131 ng/mL (8-252)
[2023-06-12 16:42] LABS: Iron 46 ug/dL (50-170)
== END 2023-06-09 01:06 | disposition home or self-care (01) ==
LOC: LBO 01:05
PROVIDERS: PCP Student in an Organized Health Care Education/Training Program; Visit Provider Student in an Organized Health Care Education/Training Program
DX: Z91.89 Other specified personal risk factors, not elsewhere classified; E11.8 Type 2 diabetes mellitus with unspecified complications; N18.30 Chronic kidney disease, stage 3 unspecified; N18.9 Chronic kidney disease, unspecified
CPT/HCPCS: 36415; 80048; 82728; 83540; 83735; 85018

== ENCOUNTER → 2023-06-10 11:29 | Outpatient (BNVA) | payer MEDICARE, SELFPAY | PROVIDERS: PCP Student in an Organized Health Care Education/Training Program; Referring Provider Student in an Organized Health Care Education/Training Program; Visit Provider Physical Therapy Assistant | DX: S91.102D Unspecified open wound of left great toe without damage to nail, subsequent encounter (principal); X58.XXXD Exposure to other specified factors, subsequent encounter | CPT/HCPCS: 99213 ==

== ENCOUNTER → 2023-06-16 09:01 | Outpatient (BNVA) | payer MEDICARE, SELFPAY | PROVIDERS: PCP Student in an Organized Health Care Education/Training Program; Referring Provider Student in an Organized Health Care Education/Training Program; Visit Provider Physical Therapy Assistant | DX: S90.422D Blister (nonthermal), left great toe, subsequent encounter (principal); X58.XXXD Exposure to other specified factors, subsequent encounter; L08.9 Local infection of the skin and subcutaneous tissue, unspecified | CPT/HCPCS: 99213 ==

== ENCOUNTER 2023-06-16 09:40 | Outpatient (REF) | payer MEDICARE, SELFPAY | END 2023-06-16 09:41 | disposition home or self-care (01) | LOC: LBN 09:40 | PROVIDERS: PCP Student in an Organized Health Care Education/Training Program; Visit Provider Physical Therapy Assistant | DX: L08.9 Local infection of the skin and subcutaneous tissue, unspecified (principal); S90.425A Blister (nonthermal), left lesser toe(s), initial encounter; X58.XXXA Exposure to other specified factors, initial encounter | CPT/HCPCS: 87077; 87070; 87186; 87205 ==

== ENCOUNTER → 2023-06-23 08:49 | Outpatient (BNVA) | payer MEDICARE, SELFPAY | PROVIDERS: PCP Student in an Organized Health Care Education/Training Program; Referring Provider Student in an Organized Health Care Education/Training Program; Visit Provider Podiatrist | DX: E11.621 Type 2 diabetes mellitus with foot ulcer (principal); L97.529 Non-pressure chronic ulcer of other part of left foot with unspecified severity; L03.032 Cellulitis of left toe | CPT/HCPCS: 97597 ==

== ENCOUNTER → 2023-06-23 11:39 | Outpatient (CLI) | payer MEDICARE, SELFPAY ==
--- NOTE | 2023-06-23 09:35 | DI.RAD_ITS ---
Exam(s) XR FOOT LT COMPLETE EXAM: XR FOOT LT COMPLETE CLINICAL HISTORY: WOUND BASE OF 1ST TOE. TECHNIQUE: 2D digital imaging was performed. COMPARISON: No exams were available for comparison FINDINGS: 3 views There is dorsal soft tissue swelling. There is also soft tissue swelling around the great toe. Ther e is a cystic subarticular bone lesion evident in the proximal aspect of the distal phalanx of the gr eat toe. This may be degenerative subarticular cysts as there is some degenerative change in the int erphalangeal joint space. This measures 7 by 5 mm. There is no fracture at this level. No radiopaq ue foreign body. No evidence of osteomyelitis. No evidence of acute fracture or diastasis of the Danielle hannah joint. Moderate size inferior calcaneal spur noted. Enthesophyte on the posterior calcaneus noted at Achilles insertion site. IMPRESSION: There is soft tissue swelling of the great toe and on the dorsal aspect of the foot. There is a prob able degenerative subarticular cyst in the distal phalanx of the great toe. No evidence of obvious o steomyelitis. No radiopaque foreign body. DATA REPOSITORY: RADIATION DOSE DELIVERED:
== END ==
PROVIDERS: PCP Student in an Organized Health Care Education/Training Program; Visit Provider Podiatrist
DX: M79.675 Pain in left toe(s) (principal)
CPT/HCPCS: 73630

== ENCOUNTER → 2023-06-30 11:27 | Outpatient (BNVA) | payer MEDICARE, SELFPAY | PROVIDERS: PCP Student in an Organized Health Care Education/Training Program; Referring Provider Student in an Organized Health Care Education/Training Program; Visit Provider Surgery | DX: L08.9 Local infection of the skin and subcutaneous tissue, unspecified (principal); L03.032 Cellulitis of left toe; E11.621 Type 2 diabetes mellitus with foot ulcer; G62.9 Polyneuropathy, unspecified | CPT/HCPCS: 99213 ==

== ENCOUNTER → 2023-07-14 11:33 | Outpatient (BNVA) | payer MEDICARE, SELFPAY | PROVIDERS: PCP Student in an Organized Health Care Education/Training Program; Referring Provider Student in an Organized Health Care Education/Training Program; Visit Provider Podiatrist | DX: L97.921 Non-pressure chronic ulcer of unspecified part of left lower leg limited to breakdown of skin; E11.621 Type 2 diabetes mellitus with foot ulcer; L97.911 Non-pressure chronic ulcer of unspecified part of right lower leg limited to breakdown of skin; N18.32 Chronic kidney disease, stage 3b; M21.961 Unspecified acquired deformity of right lower leg; M21.962 Unspecified acquired deformity of left lower leg; G62.9 Polyneuropathy, unspecified | CPT/HCPCS: 99213 ==

== ENCOUNTER → 2023-08-04 11:34 | Outpatient (BNVA) | payer MEDICARE, SELFPAY | PROVIDERS: PCP Student in an Organized Health Care Education/Training Program; Referring Provider Student in an Organized Health Care Education/Training Program; Visit Provider Podiatrist | DX: L97.921 Non-pressure chronic ulcer of unspecified part of left lower leg limited to breakdown of skin; E11.621 Type 2 diabetes mellitus with foot ulcer; L97.911 Non-pressure chronic ulcer of unspecified part of right lower leg limited to breakdown of skin; N18.32 Chronic kidney disease, stage 3b; M21.962 Unspecified acquired deformity of left lower leg; R60.0 Localized edema; G62.9 Polyneuropathy, unspecified | CPT/HCPCS: 93922; 99213 ==

== ENCOUNTER → 2023-09-01 11:30 | Outpatient (BNVA) | payer MEDICARE, SELFPAY | PROVIDERS: PCP Student in an Organized Health Care Education/Training Program; Referring Provider Student in an Organized Health Care Education/Training Program; Visit Provider Podiatrist | DX: L97.501 Non-pressure chronic ulcer of other part of unspecified foot limited to breakdown of skin (principal); E11.621 Type 2 diabetes mellitus with foot ulcer; L97.911 Non-pressure chronic ulcer of unspecified part of right lower leg limited to breakdown of skin; L97.921 Non-pressure chronic ulcer of unspecified part of left lower leg limited to breakdown of skin; N18.32 Chronic kidney disease, stage 3b; M21.961 Unspecified acquired deformity of right lower leg; M21.962 Unspecified acquired deformity of left lower leg; R60.0 Localized edema; G62.9 Polyneuropathy, unspecified | CPT/HCPCS: 99213 ==

== ENCOUNTER → 2023-09-23 00:12 | Outpatient (CLI) | payer MEDICARE, SELFPAY ==
--- NOTE | 2023-09-23 07:45 | DI.DEXA_ITS ---
Exam(s) XR DEXA BONE DENSITY W/WO PENG EXAM: XR DEXA BONE DENSITY W/WO PENG CLINICAL HISTORY: SCREENING FOR OSTEOPOROSIS IN POSTMENOPAUSAL WOMAN,Z78.0 TECHNIQUE: COMPARISON: CR XR HIP LT AP LAT ONLY from 04/30/2021 FINDINGS: Lateral Spine Image: Unremarkable. No compression deformities identified. Right hip: The patient has a left total hip replacement. Total T-Score: -2.6 Total Z-Score: -1.3 T- and Z-scores: Findings are consistent with osteoporosis. Lumbar Spine: Total T-Score: -1.7 Total Z-Score: 0.1 T- and Z-scores: Findings are consistent with osteopenia. There is osteoporosis in the left forearm with a total T-score of -3.5 and a Z-score of -1.8. IMPRESSION: Osteoporosis in the right hip and left forearm.
--- NOTE | 2023-09-23 07:45 | DI.MAMMO_ITS ---
Exam(s) MAMMO SCREENING EXAM: MAMMO SCREENING CLINICAL HISTORY: screening,Z12.39. TECHNIQUE: Bilateral full field digital CC and MLO mammographic images were obtained with 3D tomosyn thesis and utilizing computer aided detection (CAD). COMPARISON: None. This is a baseline mammogram on this 68-year-old FINDINGS: The fibroglandular pattern is predominately fatty There is a calcified fibroadenoma in the medial aspect of the left breast. There are 2 nodular densities in the upper quadrant of the right breast, with the larger of the 2 gustabo suring 12 by 7 mm, this located 11 cm in from the nipple There are no malignant-appearing microcalcification groups in this region or elsewhere in either [address]. There is no significant architectural distortion nor skin thickening-retraction. IMPRESSION: 1. No radiographic evidence of malignancy in left breast. 2. There are 2 nodules in the upper-outer quadrant of the right breast the larger of the 2 measuring 12 x 7 mm. Ultrasound recommended to determine if there is solid or cystic or just benign intramamma ry lymph nodes. BI-RADS Category 0 - Assessment Incomplete: Need additional imaging evaluation Breast Density - Category A - Almost entirely fatty Breast density Category C or D implies that the patient has dense breast tissue. Dense breast tissue can make it harder to find cancer on a mammogram. Dense breast tissue is also associated with an incr eased risk of breast cancer. This information about the result of the mammogram report was provided to the patient to raise their awareness. Use this report when you speak with the patient about their risks for breast cancer, which includes their family history. At that time, you may recommend additional screening tests (Ultrasoun d or MRI) as these tests may add significant information. A negative radiographic report should not delay biopsy if a dominant or clinically suspicious mass is present. Up to ten percent of cancers are not identified on mammography. A negative report may reinforce clinical impression. Adenosis and dense breasts may obscure an underlying neoplasm. False positive reports average 6 to 10%. Patient will receive a letter notifying them of these results.
== END ==
PROVIDERS: PCP Student in an Organized Health Care Education/Training Program; Visit Provider Student in an Organized Health Care Education/Training Program
DX: Z12.31 Encounter for screening mammogram for malignant neoplasm of breast (principal); Z78.0 Asymptomatic menopausal state; Z13.820 Encounter for screening for osteoporosis; M81.0 Age-related osteoporosis without current pathological fracture
CPT/HCPCS: 77063; 77067; 77080

== ENCOUNTER → 2023-09-29 01:23 | Outpatient (CLI) | payer MEDICARE, SELFPAY ==
--- NOTE | 2023-09-29 | DI.US_ITS ---
Exam(s) MG MAMMO SCREEN CALL BACK UNI US BREAST RT LIMITED EXAM: MG MAMMO SCREEN CALL BACK UNI and U/S breast RT limited CLINICAL HISTORY: call back RT spot views per Dr Vasquez. TECHNIQUE: Craniocaudal and mediolateral oblique Full Field Digital Mammography views of the right b reast with Computer Aided Diagnosis followed by Tomosynthesis and right breast ultrasound. COMPARISON: Comparison is made with baseline examination. FINDINGS: Mammography/Tomosynthesis: Masses/Architectural Distortion: There is again seen a well-circumscribed ovoid 6 mm nodule in the up per outer quadrant of the right breast. There is also a 2nd nodule present in the upper outer quadra nt. It is mildly lobulated and a ovoid. It is more posteriorly located. Microcalcifictions: No suspicious pleomorphic-type are seen. Skin Thickening/Nipple Retraction: None. Limited right breast US: Echotexture: Normal appearance of the glandular tissue. Shadowing: No suspicious foci. Cyst: None. Solid lesions: There is a solid radially oriented ovoid hypoechoic nodule at the 10 o'clock position of the right breast 5 cm from the nipple. It measures 6 mm in diameter. This would appear to corres pond with a smaller lesion mammographically. More posteriorly at the 11 o'clock position there is an irregular hypoechoic mass 8 cm from the nipple. It measures 1.6 cm and has some internal blood flow . It appears to lie in the axillary tail region of the right breast. And may correspond to the mamm ographic abnormality. Ductal dilation: None. IMPRESSION: 1. Irregular hypoechoic 1.6 cm mass at the 11 o'clock position of the right breast 8 cm from the nipp le. This may correspond to the larger right breast lesion seen mammographically although it appears to be or posterior on exam. Both the mass seen at the 11 o'clock position of the right breast sonogr aphically and the larger nodule seen on the mammogram should be further evaluated. 2. MRI of the breast is recommended for further evaluation. Alternatively, biopsy of these lesions s hould be considered. The sonographically identified lesion appears suspicious. 3. The findings were discussed with the patient on the date of the examination. Findings and evaluat ion options were discussed with Dr. Ibanez at 10:35 a.m. on 09/29/2023. BI-RADS Category 4 - Suspicious Abnormality: Biopsy should be considered Breast Density - Category A - Almost entirely fatty Breast density Category C or D implies that the patient has dense breast tissue. Dense breast tissue can make it harder to find cancer on a mammogram. Dense breast tissue is also associated with an incr eased risk of breast cancer. This information about the result of the mammogram report was provided to the patient to raise their awareness. Use this report when you speak with the patient about their risks for breast cancer, which includes their family history. At that time, you may recommend additional screening tests (Ultrasoun d or MRI) as these tests may add significant information. A negative radiographic report should not delay biopsy if a dominant or clinically suspicious mass is present. Up to ten percent of cancers are not identified on mammography. A negative report may reinforce clinical impression. Adenosis and dense breasts may obscure an underlying neoplasm. False positive reports average 6 to 10%. Patient will receive a letter notifying them of these results.
== END ==
PROVIDERS: PCP Student in an Organized Health Care Education/Training Program; Visit Provider Student in an Organized Health Care Education/Training Program
DX: R92.8 Other abnormal and inconclusive findings on diagnostic imaging of breast (principal); N63.11 Unspecified lump in the right breast, upper outer quadrant
CPT/HCPCS: 76642; 77063; 77067

== ENCOUNTER 2023-11-01 05:20 | Outpatient (CLI) | payer MEDICARE, SELFPAY ==
[2023-11-01 08:01] LABS: HCT 33.5 % (36.0-46.0); HGB 10.6 g/dL (11.2-15.7); MCH 28.6 pg (27.0-33.0); MCHC 31.6 % (32.0-36.0); MCV 91 fL (80-95); Platelet Count 282 10^3/uL (130-400); RDW 13.7 % (11.7-14.6); RDW-SD 45.8 fL; WBC 5.93 10^3/uL (4.4-10.8)
[2023-11-01 08:35] LABS: Hemoglobin A1C 6.6 % (<5.7)
[2023-11-01 08:42] LABS: ALT 20 U/L (14-59); AST 11 U/L (15-37); Albumin 3.2 g/dL (3.4-5.0); Alkaline Phosphatase 101 U/L (46-116); Anion Gap 4.6 mmol/L (3-11); BUN 44 mg/dL (7-18); Bilirubin, Total 0.2 mg/dL (0.2-1.0); CO2 25.4 mmol/L (21.0-32.0); CREATININE 1.8 mg/dL (0.55-1.02); Calcium 9.5 mg/dL (8.5-10.1); Calculated LDL 160 mg/dL (<100); Chloride 109 mmol/L (98-107); Cholesterol 246 mg/dL (<200); Estimated GFR 30.69 (mL/min/1.73m2); Ferritin 132 ng/mL (8-252); Glucose 87 mg/dL (74-106); HDL Cholesterol 41 mg/dL (40-60); Magnesium 1.9 mg/dL (1.8-2.4); Potassium 5.3 mmol/L (3.5-5.1); Sodium 139 mmol/L (136-145); Total Protein 8.2 g/dL (6.4-8.2); Triglyceride 227 mg/dL (<150)
[2023-11-01 08:53] LABS: Vitamin D 25 Total 5.9 ng/mL (30-100)
[2023-11-01 09:31] LABS: Iron 53 ug/dL (50-170); Total Iron Binding Capacity 254 ug/dL (250-450); Transferrin Sat 21 % (15-50)
== END 2023-11-01 05:21 | disposition home or self-care (01) ==
LOC: LBO 05:20
PROVIDERS: PCP Student in an Organized Health Care Education/Training Program; Visit Provider Student in an Organized Health Care Education/Training Program
DX: N18.32 Chronic kidney disease, stage 3b (principal); E11.8 Type 2 diabetes mellitus with unspecified complications; Z91.89 Other specified personal risk factors, not elsewhere classified; Z13.220 Encounter for screening for lipoid disorders
CPT/HCPCS: 36415; 80053; 80061; 82306; 85027; 82728; 83036; 83540; 83550; 83735

== ENCOUNTER 2023-11-24 01:07 | Outpatient (CLI) | payer MEDICARE, SELFPAY ==
[2023-11-24 12:15] LABS: ALT 33 U/L (14-59); AST 17 U/L (15-37); Albumin 3.3 g/dL (3.4-5.0); Alkaline Phosphatase 125 U/L (46-116); Anion Gap 6.5 mmol/L (3-11); BUN 33 mg/dL (7-18); Bilirubin, Total 0.3 mg/dL (0.2-1.0); CO2 25.5 mmol/L (21.0-32.0); CREATININE 1.6 mg/dL (0.55-1.02); Calcium 9.1 mg/dL (8.5-10.1); Chloride 106 mmol/L (98-107); Estimated GFR 35.35 (mL/min/1.73m2); Glucose 129 mg/dL (74-106); Potassium 5.5 mmol/L (3.5-5.1); Sodium 138 mmol/L (136-145); Total Protein 8.3 g/dL (6.4-8.2)
== END 2023-11-24 01:08 | disposition home or self-care (01) ==
LOC: LBO 01:07
PROVIDERS: PCP Student in an Organized Health Care Education/Training Program; Referring Provider Student in an Organized Health Care Education/Training Program; Visit Provider Student in an Organized Health Care Education/Training Program
DX: E88.09 Other disorders of plasma-protein metabolism, not elsewhere classified (principal)
CPT/HCPCS: 36415; 80053

== ENCOUNTER 2023-11-30 20:07 | Outpatient (CLI) | payer MEDICARE, SELFPAY ==
[2023-11-30 16:37] LABS: Anion Gap 6.9 mmol/L (3-11); BUN 40 mg/dL (7-18); CO2 25.1 mmol/L (21.0-32.0); CREATININE 1.6 mg/dL (0.55-1.02); Calcium 9.4 mg/dL (8.5-10.1); Chloride 107 mmol/L (98-107); Estimated GFR 35.35 (mL/min/1.73m2); Glucose 116 mg/dL (74-106); Potassium 5.4 mmol/L (3.5-5.1); Sodium 139 mmol/L (136-145)
== END 2023-11-30 20:08 | disposition home or self-care (01) ==
LOC: LBO 20:08
PROVIDERS: PCP Student in an Organized Health Care Education/Training Program; Visit Provider Nurse Practitioner Adult Health
DX: E87.5 Hyperkalemia (principal)
CPT/HCPCS: 36415; 80048

== ENCOUNTER → 2024-01-24 08:32 | Outpatient (BNVA) | payer MEDICARE, SELFPAY | PROVIDERS: PCP Student in an Organized Health Care Education/Training Program; Visit Provider Podiatrist | DX: L97.921 Non-pressure chronic ulcer of unspecified part of left lower leg limited to breakdown of skin (principal); E08.621 Diabetes mellitus due to underlying condition with foot ulcer; N18.32 Chronic kidney disease, stage 3b; M21.961 Unspecified acquired deformity of right lower leg; M21.962 Unspecified acquired deformity of left lower leg; R60.0 Localized edema; G62.9 Polyneuropathy, unspecified; I73.89 Other specified peripheral vascular diseases | CPT/HCPCS: 11719; 11720 ==

== ENCOUNTER 2024-02-07 02:58 | Outpatient (CLI) | payer MEDICARE, SELFPAY ==
[2024-02-07 12:21] LABS: ALT 23 U/L (14-59); AST 16 U/L (15-37); Alkaline Phosphatase 117 U/L (46-116); BUN 42 mg/dL (7-18); Bilirubin, Total 0.34 mg/dL (0.2-1.0); Calcium 9.3 mg/dL (8.5-10.1); Chloride 106 mmol/L (98-107); Estimated GFR 27.04 (mL/min/1.73m2); Glucose 138 mg/dL (74-106); Sodium 139 mmol/L (136-145); Total Protein 7.9 g/dL (6.4-8.2)
[2024-02-07 12:22] LABS: Vitamin D 25 Total < 5 ng/mL (30-100)
== END 2024-02-07 02:59 | disposition home or self-care (01) ==
LOC: LBO 02:58
PROVIDERS: PCP Student in an Organized Health Care Education/Training Program; Referring Provider Student in an Organized Health Care Education/Training Program; Visit Provider Student in an Organized Health Care Education/Training Program
DX: E11.8 Type 2 diabetes mellitus with unspecified complications (principal); E88.09 Other disorders of plasma-protein metabolism, not elsewhere classified; K90.9 Intestinal malabsorption, unspecified
CPT/HCPCS: 36415; 80053; 82306; 83036

== ENCOUNTER 2024-02-27 04:22 | Outpatient (CLI) | payer MEDICARE, SELFPAY ==
[2024-02-27 09:30] LABS: Anion Gap 10.8 mmol/L (3-11); BUN 33 mg/dL (7-18); CO2 24.2 mmol/L (21.0-32.0); CREATININE 1.6 mg/dL (0.55-1.02); Calcium 10.1 mg/dL (8.5-10.1); Chloride 106 mmol/L (98-107); Estimated GFR 35.35 (mL/min/1.73m2); Glucose 88 mg/dL (74-106); Magnesium 1.5 mg/dL (1.8-2.4); Sodium 141 mmol/L (136-145); Vitamin D 25 Total 14.4 ng/mL (30-100)
== END 2024-02-27 04:23 | disposition home or self-care (01) ==
LOC: LBO 04:23
PROVIDERS: Absent Provider Student in an Organized Health Care Education/Training Program; PCP Student in an Organized Health Care Education/Training Program; Referring Provider Student in an Organized Health Care Education/Training Program; Visit Provider Student in an Organized Health Care Education/Training Program
DX: K90.9 Intestinal malabsorption, unspecified (principal); N17.9 Acute kidney failure, unspecified; E08.621 Diabetes mellitus due to underlying condition with foot ulcer; L97.501 Non-pressure chronic ulcer of other part of unspecified foot limited to breakdown of skin; E11.622 Type 2 diabetes mellitus with other skin ulcer; L97.919 Non-pressure chronic ulcer of unspecified part of right lower leg with unspecified severity
CPT/HCPCS: 36415; 80048; 82306; 83735

== ENCOUNTER → 2024-05-22 08:24 | Outpatient (BNVA) | payer MEDICARE, SELFPAY | PROVIDERS: PCP Student in an Organized Health Care Education/Training Program; Referring Provider Student in an Organized Health Care Education/Training Program; Visit Provider Podiatrist | DX: L60.3 Nail dystrophy (principal); E11.621 Type 2 diabetes mellitus with foot ulcer; L97.911 Non-pressure chronic ulcer of unspecified part of right lower leg limited to breakdown of skin; N18.32 Chronic kidney disease, stage 3b; M21.961 Unspecified acquired deformity of right lower leg; M21.962 Unspecified acquired deformity of left lower leg; R60.0 Localized edema; G62.9 Polyneuropathy, unspecified; I73.89 Other specified peripheral vascular diseases | CPT/HCPCS: 11719; 11720 ==

== ENCOUNTER → 2024-09-25 08:15 | Outpatient (BNVA) | payer MEDICARE, SELFPAY | PROVIDERS: PCP Student in an Organized Health Care Education/Training Program; Referring Provider Student in an Organized Health Care Education/Training Program; Visit Provider Podiatrist | DX: E11.621 Type 2 diabetes mellitus with foot ulcer (principal); L60.3 Nail dystrophy; B35.1 Tinea unguium; L97.911 Non-pressure chronic ulcer of unspecified part of right lower leg limited to breakdown of skin; N18.32 Chronic kidney disease, stage 3b; M21.961 Unspecified acquired deformity of right lower leg; M21.962 Unspecified acquired deformity of left lower leg; R60.0 Localized edema; G62.9 Polyneuropathy, unspecified; R23.4 Changes in skin texture; I73.89 Other specified peripheral vascular diseases; R20.8 Other disturbances of skin sensation; L65.9 Nonscarring hair loss, unspecified; L60.2 Onychogryphosis; L60.8 Other nail disorders; L85.8 Other specified epidermal thickening | CPT/HCPCS: 11719; 11720 ==

== ENCOUNTER → 2025-02-25 07:58 | Outpatient (BNVA) | payer MEDICARE, SELFPAY | PROVIDERS: Visit Provider Podiatrist | DX: E11.22 Type 2 diabetes mellitus with diabetic chronic kidney disease (principal); N18.32 Chronic kidney disease, stage 3b; M21.961 Unspecified acquired deformity of right lower leg; M21.962 Unspecified acquired deformity of left lower leg; R60.0 Localized edema; E11.42 Type 2 diabetes mellitus with diabetic polyneuropathy; R23.4 Changes in skin texture; R09.89 Other specified symptoms and signs involving the circulatory and respiratory systems; R20.8 Other disturbances of skin sensation; L65.9 Nonscarring hair loss, unspecified; L60.2 Onychogryphosis; L60.8 Other nail disorders; L60.3 Nail dystrophy; L85.8 Other specified epidermal thickening; L84 Corns and callosities | CPT/HCPCS: 11056; 11719; 11720 ==

== ENCOUNTER 2025-03-19 01:36 | Outpatient (CLI) | payer MEDICARE, SELFPAY ==
[2025-03-19 08:11] LABS: Anion Gap 12.2 mmol/L (3-11); BUN 34 mg/dL (7-18); CO2 21.8 mmol/L (21.0-32.0); Calcium 8.9 mg/dL (8.5-10.1); Calculated LDL 170 mg/dL (<100); Chloride 108 mmol/L (98-107); Cholesterol 253 mg/dL (<200); Estimated GFR 25.35 (mL/min/1.73m2); Glucose 123 mg/dL (74-106); HDL Cholesterol 37 mg/dL (>or=50); Magnesium 2.0 mg/dL (1.8-2.4); Potassium 4.8 mmol/L (3.5-5.1); Sodium 142 mmol/L (136-145); Triglyceride 231 mg/dL (<150)
== END 2025-03-19 01:37 | disposition home or self-care (01) ==
LOC: LBO 01:36
DX: E11.8 Type 2 diabetes mellitus with unspecified complications (principal); N18.32 Chronic kidney disease, stage 3b; E87.5 Hyperkalemia; I10 Essential (primary) hypertension; Z91.89 Other specified personal risk factors, not elsewhere classified
CPT/HCPCS: 36415; 80048; 80061; 83735